=== PATIENT | female | born 1935 | race Caucasian/White ===

== ENCOUNTER 2019-12-03 15:27 | Emergency (ER) | payer MEDICARE ==
[~2019-12-03] VITALS: Ht 165.1 cm; Wt 93.0 kg
[~2019-12-03 15:27] MED LIST: B COMPLEX1 EAC1 PO; CENTRUM SILVER1 EAC1 PO; DILTIAZEM HCL120 MG PO; ELIQUIS5 MG PO; LEVOTHYROXINE25 MCG PO; TRIAMTERENE-HC1 EAC3 PO; VITAMIN D-32000 UNIT PO
[2019-12-03] MEDS ORDERED: LEVOTHYROXINE125 MCG PO (15:53)
== END 2019-12-03 21:09 | disposition home or self-care (01) ==
LOC: ED 15:27
DX: S09.90XA Unspecified injury of head, initial encounter (principal); S52.125A Nondisplaced fracture of head of left radius, initial encounter for closed fracture; S83.92XA Sprain of unspecified site of left knee, initial encounter; M25.512 Pain in left shoulder; W01.198A Fall on same level from slipping, tripping and stumbling with subsequent striking against other object, initial encounter; I10 Essential (primary) hypertension; E03.9 Hypothyroidism, unspecified; Z88.0 Allergy status to penicillin; Z88.1 Allergy status to other antibiotic agents; Z88.8 Allergy status to other drugs, medicaments and biological substances; Z88.2 Allergy status to sulfonamides; Z79.899 Other long term (current) drug therapy
CPT/HCPCS: 29125; 70450; 71046; 73030; 73080; 73110; 73140; 73502; 73560; 99284-25

== ENCOUNTER 2020-06-23 13:04 | Emergency (ER) | payer MEDICARE ==
[~2020-06-23] VITALS: Ht 165.1 cm; Wt 93.0 kg
--- OUTSIDE RECORDS SUMMARY | ~2020-06-23 | XMS | Encounter Summary ---
Demographics + + + | Address | [address] [facility] | | | [place] [address] | + + + | Home Phone | | + + + | Preferred Language | Unknown | + + + | Marital Status | | + + + | Yazidi Affiliation | 1077 | + + + | Race | White | + + + | Ethnic Group | Not or | + + + Author + + + | Author | [facility] | | | and [place] | + + + | Organization | [facility] | | | and [place] | + + + | Address | Unknown | + + + | Phone | Unavailable | + + + Support + + +---------+ + | Name | Relationship | Address | Phone | + + +---------+ + | Jovanni H Calle | ECON | Unknown | | + + +---------+ + Care Team Providers + +------+ + | Care Machine Oiler Name | Role | Phone | + +------+ + PCP | Unavailable | + +------+ + Encounter Details +--------+ + + + + | Date | Type | Department | Care Team | Description | +--------+ + + + + | 01/07/ | Hospital | [facility] | | | | 1991 - | Encounter | MED CTR GENERIC OP | | | | | | CONV DEPT [address] | | | | 10/12/ | | [place], | | | | 1991 | | [place] [address] | | | | | | [phone] | | | +--------+ + + + + Social History + +-------+ +--------+------+ | Tobacco Use | Types | Packs/Day | Years | Date | | | | | Used | | + +-------+ +--------+------+ | Never Assessed | | | | | + +-------+ +--------+------+ + + + | Sex Assigned at | Date Recorded | | | | + + + | Not on file | | + + + documented as of this encounter Plan of Treatment Not on filedocumented as of this encounter Visit Diagnoses Not on filedocumented in this encounter"
--- OUTSIDE RECORDS SUMMARY | ~2020-06-23 | XMS | Encounter Summary ---
Demographics + + + | Address | [address] [facility] | | | [place] [address] | + + + | Home Phone | | + + + | Preferred Language | Unknown | + + + | Marital Status | | + + + | Worship Affiliation | 1077 | + + + | Race | White | + + + | Ethnic Group | Not or | + + + Author + + + | Author | [facility] | | | and [place] | + + + | Organization | [facility] | | | and [place] | + + + | Address | Unknown | + + + | Phone | Unavailable | + + + Support + + +---------+ + | Name | Relationship | Address | Phone | + + +---------+ + | Jovanni Calle | ECON | Unknown | | + + +---------+ + Care Team Providers + +------+ + | Care Mailhouse Operator Name | Role | Phone | + +------+ + | Kenroy Bess DO | PCP | | + +------+ + Encounter Details +--------+ + + + + | Date | Type | Department | Care Team | Description | +--------+ + + + + | 05/08/ | Orders Only | [facility] | [place], | | | 2014 | | [facility] | [address] | | | | | [address] | [address], | | | | | [address] [place], [place] | [place] [address] | | | | | [address] | [phone] | | | | | [phone] | | | +--------+ + + + [...] Not on filedocumented as of this encounter Procedures + +--------+ + + + | Procedure Name | Priori | Date/Time | Associated Diagnosis | Comments | | | ty | | | | + +--------+ + + + | EXTERNAL LAB: CBC | Routin | 05/08/2015 | | Results for this | | | e | 12:00 AM | | procedure are in the | | | | PDT | | results section. | + +--------+ + + + | URINALYSIS WITH | Routin | 05/08/2015 | | Results for this | | MICROSCOPIC WITH | e | 12:00 AM | | procedure are in the | | CULTURE IF INDICATED | | PDT | | results section. | + +--------+ + + + | MAGNESIUM | Routin | 05/08/2015 | | Results for this | | | e | 12:00 AM | | procedure are in the | | | | PDT | | results section. | + +--------+ + + + | RENAL FUNCTION PANEL | Routin | 05/08/2015 | | Results for this | | | e | 12:00 AM | | procedure are in the | | | | PDT | | results section. | + +--------+ + + + documented in this encounter Results Urinalysis with Microscopic with Culture if Indicated (05/08/2015 12:00 AM PDT) + + + + + + | Component | Value | Ref Range | Performed | Pathologist | | | | | At | Signature | + + + + + + | Color | Yellow | | EXTERNAL | | | | | | LAB | | + + + + + + | Clarity, | Clear | | EXTERNAL | | | Urine | | | LAB | | + + + + + + | Spec Grav, | 1.016 | 1.005 - 1.030 | EXTERNAL | | | Fluid | | | LAB | | + + + + + + | Leukocyte | Negative | | EXTERNAL | | | Esterase, | | | LAB | | | Urine | | | | | + + + + + + | Nitrite, | Negative | | EXTERNAL | | | Urine | | | LAB | | + + + + + + | Urobilinoge | Normal | | EXTERNAL | | | n, Urine | | | LAB | | + + + + + + | Total | Negative | | EXTERNAL | | | Protein | | | LAB | | + + + + + + | pH, Urine | 5 | 5 - 9 | EXTERNAL | | | | | | LAB | | + + + + + + | Blood, | Negative | | EXTERNAL | | | Urine | | | LAB | | + + + + + + | Ketones | Negative | | EXTERNAL | | | | | | LAB | | + + + + + + | Bilirubin, | Negative | | EXTERNAL | | | Urine | | | LAB | | + + + + + + | Glucose, | Negative | | EXTERNAL | | | Urine | | | LAB | | + + + + + + | WBC, UA | | | EXTERNAL | | | | | | LAB | | + + + + + + | RBC, UA | | | EXTERNAL | | | | | | LAB | | + + + + + + | Epithelial | | | EXTERNAL | | | Cells | | | LAB | | + + + + + + | Bacteria, | | | EXTERNAL | | | UA | | | LAB | | + + + + + + | HYALINE | | | EXTERNAL | | | CASTS UA | | | LAB | | + + + + + + + + | Specimen | + + | | + + + +---------+ + + | Performing | Address | City/State/Zipcode | Phone Number | | Organization | | | | + +---------+ + + | EXTERNAL LAB | | | | + +---------+ + + External Lab: CBC (05/08/2015 12:00 AM PDT) + + + + + + | Component | Value | Ref Range | Performed | Pathologist | | | | | At | Signature | + + + + + + | WBC | 6.8 | 4.5 - 11.0 10 | EXTERNAL | | | | | | LAB | | + + + + + + | Non- | 5.42 (A) | 3.8 - 5.1 10 | EXTERNAL | | | Red Blood | | | LAB | | | Cells | | | | | | Counted | | | | | + + + + + + | Hemoglobin | 16.5 (A) | 12.0 - 16.0 | EXTERNAL | | | | | g/dL | LAB | | + + + + + + | Hematocrit, | 49.9 (A) | 35 - 45 % | EXTERNAL | | | POC | | | LAB | | + + + + + + | MCV | 92.1 | 81 - 99 fL | EXTERNAL | | | | | | LAB | | + + + + + + | MCH | 30 | 27 - 33 pg | EXTERNAL | | | | | | LAB | | + + + + + + | MCHC | 33 | 30 - 36 g/dL | EXTERNAL | | | | | | LAB | | + + + + + + | Platelet | 167 | 140 - 440 K/ L | EXTERNAL | | | Count | | | LAB | | | Plasma | | | | | + + + + + + | RDW-CV | 14.6 | 10.5 - 15.0 % | EXTERNAL | | | | | | LAB | | + + + + + + | MPV | | fL | EXTERNAL | | | | | | LAB | | + + + + + + | Differentia | Auto | | EXTERNAL | | | l Type | | | LAB | | + + + + + + | % Segmented | 64.4 | 39 - 80 % | EXTERNAL | | | | | | LAB | | | Neutrophils | | | | | + + + + + + | % | 21.2 (A) | 24 - 44 % | EXTERNAL | | | Lymphocytes | | | LAB | | + + + + + + | % Monocytes | 10.9 | 0 - 12 % | EXTERNAL | | | | | | LAB | | + + + + + + | % | 2.3 | 0 - 6 % | EXTERNAL | | | Eosinophils | | | LAB | | + + + + + + | % Basophils | 1.2 | 0 - 2 % | EXTERNAL | | | | | | LAB | | + + + + + + | Absolute | | / L | EXTERNAL | | | Segmented | | | LAB | | | Neutrophils | | | | | + + + + + + | Absolute | | / L | EXTERNAL | | | Lymphocytes | | | LAB | | + + + + + + | Absolute | | / L | EXTERNAL | | | Monocytes | | | LAB | | + + + + + + | Absolute | | / L | EXTERNAL | | | Eosinophils | | | LAB | | + + + + + + | Absolute | | / L | EXTERNAL | | | Basophils | | | LAB | | + + + + + + + + | Specimen | + + | Blood specimen | | (specimen) | + + + +---------+ + + | Performing | Address | City/State/Zipcode | Phone Number | | Organization | | | | + +---------+ + + | EXTERNAL LAB | | | | + +---------+ + + Magnesium (05/08/2015 12:00 AM PDT) + +-------+ + + + | Component | Value | Ref Range | Performed | Pathologist | | | | | At | Signature | + +-------+ + + + | Magnesium | 2.1 | 1.7 - 2.5 mg/dL | EXTERNAL | | | | | | LAB | | + +-------+ + + + + + | Specimen | + + | Blood specimen | | (specimen) | + + + +---------+ + + | Performing | Address | City/State/Zipcode | Phone Number | | Organization | | | | + +---------+ + + | EXTERNAL LAB | | | | + +---------+ + + Renal Function Panel (05/08/2015 12:00 AM PDT) + + + + + + | Component | Value | Ref Range | Performed | Pathologist | | | | | At | Signature | + + + + + + | Glucose, | 106 (A) | 70 - 100 mg/dL | EXTERNAL | | | Fasting | | | LAB | | + + + + + + | BUN | 30 (A) | 6 - 23 mg/dL | EXTERNAL | | | | | | LAB | | + + + + + + | Creatinine | 1.14 | 0.70 - 1.18 | EXTERNAL | | | | | mg/dL | LAB | | + + + + + + | PHOSPHORUS | | mg/dL | EXTERNAL | | | | | | LAB | | + + + + + + | Albumin | 4.2 | 3.5 - 5.0 | EXTERNAL | | | | | | LAB | | + + + + + + | Na | 139 | 132 - 143 | EXTERNAL | | | | | mmol/L | LAB | | + + + + + + | K | 4.1 | 3.6 - 5.1 | EXTERNAL | | | | | mmol/L | LAB | | + + + + + + | Cl | 100 | 95 - 112 mmol/L | EXTERNAL | | | | | | LAB | | + + + + + + | CO2 | 28 | 19 - 31 mmol/L | EXTERNAL | | | | | | LAB | | + + + + + + | Anion Gap | 15.1 | 7 - 21 mmol/L | EXTERNAL | | | | | | LAB | | + + + + + + | eGFR, | | | EXTERNAL | | | non- | | | LAB | | | [place] | | | | | + + + + + + | Phosphorus, | 3.9 | 2.5 - 5.0 | EXTERNAL | | | Inorganic | | | LAB | | + + + + + + | BUN/Creatin | 26.3 | 6.0 - 28.6 | EXTERNAL | | | ine Ratio | | | LAB | | + + + + + + | Calcium | 10.3 (A) | 8.4 - 10.2 | EXTERNAL | | | | | mg/dL | LAB | | + + + + + + | Estimated | 46 | mg/dL | EXTERNAL | | | GFR | | | LAB | | + + + + + + + + | Specimen | + + | Blood specimen | | (specimen) | + + + +---------+ + + | Performing | Address | City/State/Zipcode | Phone Number | | Organization | | | | + +---------+ + + | EXTERNAL LAB | | | | + +---------+ + + documented in this encounter Visit Diagnoses Not on filedocumented in this encounter"
--- OUTSIDE RECORDS SUMMARY | ~2020-06-23 | XMS | Encounter Summary ---
Demographics + + + | Address | [address] [facility] | | | [place] [address] | + + + | Home Phone | | + + + | Preferred Language | Unknown | + + + | Marital Status | | + + + | Confucianist Affiliation | 1077 | + + + | Race | White | + + + | Ethnic Group | Not or | + + + Author + + + | Author | [facility] | | | and [place] | + + + | Organization | [facility] | | | [...] Team Providers + +------+ + | Care Rare/Endangered Species Specialist Name | Role | Phone | + +------+ + PCP | Unavailable | + +------+ + Encounter Details +--------+ + + + + | Date | Type | Department | Care Team | Description | +--------+ + + + + | 12/29/ | Hospital | [facility] | Mehul Panda, | Sprain rotator cuff | | 2004 | Encounter | CONVERSION [address] | MD [address] | | | | | [address] | [place] | | | | | [place], [place] | [address] | | | | | [address] | [phone] | | | | | [phone] | | | +--------+ + + + [...] filedocumented as of this encounter Visit Diagnoses + + | Diagnosis | + + | Sprain rotator cuff Rotator cuff (capsule) sprain | + + documented in this encounter"
--- OUTSIDE RECORDS SUMMARY | ~2020-06-23 | XMS | Encounter Summary ---
Demographics + + + | Address | [address] [facility] | | | [place] [address] | + + + | Home Phone | | + + + | Preferred Language | Unknown | + + + | Marital Status | | + + + | Denominational Affiliation | 1077 | + + + | Race | White | + + + | Ethnic Group | Not or | + + + Author + + + | Author | [facility] | | | and [place] | + + + | Organization | [facility] | | | [...] Team Providers + +------+ + | Care Sr Risk Management Consultant Name | Role | Phone | + +------+ + | Kenroy Bess DO | PCP | | + +------+ + Encounter Details +--------+ + + + + | Date | Type | Department | Care Team | Description | +--------+ + + + + | 12/01/ | Orders Only | [facility] | Conversion | | | 2014 | | [facility] | Transaction, | | | | | [address] | Provider Unknown | | | | | [address] [place], [place] | [phone] | | | | | [address] | | | | | | [phone] | | | +--------+ + + + [...] | EXTERNAL LAB: CBC | Routin | 12/01/2014 | | Results for this | | | e | 12:00 AM | | procedure are in the | | | | PST | | results section. | + +--------+ + + + | URINALYSIS WITH | Routin | 12/01/2014 | | Results for this | | MICROSCOPIC WITH | e | 12:00 AM | | procedure are in the | | CULTURE IF INDICATED | | PST | | results section. | + +--------+ + + + | PROTEIN/CREATININE | Routin | 12/01/2014 | | Results for this | | RATIO, URINE | e | 12:00 AM | | procedure are in the | | | | PST | | results section. | + +--------+ + + + | PROTEIN, URINE, | Routin | 12/01/2014 | | Results for this | | RANDOM | e | 12:00 AM | | procedure are in the | | | | PST | | results section. | + +--------+ + + + | CREATININE, URINE, | Routin | 12/01/2014 | | Results for this | | RANDOM | e | 12:00 AM | | procedure are in the | | | | PST | | results section. | + +--------+ + + + | URIC ACID | Routin | 12/01/2014 | | Results for this | | | e | 12:00 AM | | procedure are in the | | | | PST | | results section. | + +--------+ + + + | MAGNESIUM | Routin | 12/01/2014 | | Results for this | | | e | 12:00 AM | | procedure are in the | | | | PST | | results section. | + +--------+ + + + | RENAL FUNCTION PANEL | Routin | 12/01/2014 | | Results for this | | | e | 12:00 AM | | procedure are in the | | | | PST | | results section. | + +--------+ + + + documented in this encounter Results Urinalysis with Microscopic with Culture if Indicated (12/01/2014 12:00 AM PST) + + + + + + | [...] + + + | Spec Grav, | 1.021 | | EXTERNAL | | | Fluid | [...] + | pH, Urine | 5 | | EXTERNAL | | | | [...] + + + | WBC, UA | 0 | | EXTERNAL | | | | | | LAB | | + + + + + + | RBC, UA | 0 | | EXTERNAL | | | | | | LAB | | + + + + + + | Epithelial | Negative | | EXTERNAL | | | Cells | | | LAB | | + + + + + + | Bacteria, | None Seen | | EXTERNAL | | | UA | | | LAB | | + + + + + + | HYALINE | None Seen | | EXTERNAL | | | CASTS [...] | | | + +---------+ + + Protein/Creatinine Ratio, Urine (12/01/2014 12:00 AM PST) + +-------+ + + + | Component | Value | Ref Range | Performed | Pathologist | | | | | At | Signature | + +-------+ + + + | Protein/Cre | 105.8 | 0 - 150 | EXTERNAL | | | at Ratio | | | LAB | | + +-------+ + + + + + | Specimen | + + | Urine specimen | | (specimen) | + + + +---------+ + + | Performing | Address | City/State/Zipcode | Phone Number | | Organization | | | | + +---------+ + + | EXTERNAL LAB | | | | + +---------+ + + Protein, Urine, Random (12/01/2014 12:00 AM PST) + +-------+ + + + | Component | Value | Ref Range | Performed | Pathologist | | | | | At | Signature | + +-------+ + + + | Protein, | 11 | 0.0 - 50.0 | EXTERNAL | | | Urine | | | LAB | | + +-------+ + + + + + | Specimen | + + | Urine specimen | | (specimen) | + + + +---------+ + + | Performing | Address | City/State/Zipcode | Phone Number | | Organization | | | | + +---------+ + + | EXTERNAL LAB | | | | + +---------+ + + Creatinine, Urine, Random (12/01/2014 12:00 AM PST) + +-------+ + + + | Component | Value | Ref Range | Performed | Pathologist | | | | | At | Signature | + +-------+ + + + | Creatinine, | 104 | | EXTERNAL | | | 24H Ur | | | LAB | | + +-------+ + + + + + | Specimen | + + | Urine specimen | | (specimen) | + + + +---------+ + + | Performing | Address | City/State/Zipcode | Phone Number | | Organization | | | | + +---------+ + + | EXTERNAL LAB | | | | + +---------+ + + External Lab: CBC (12/01/2014 12:00 AM PST) + + + + + + | Component | Value | Ref Range | Performed | Pathologist | | | | | At | Signature | + + + + + + | WBC | 5.9 | 4.5 - 11.0 10 | EXTERNAL | | | | | | LAB | | + + + + + + | Non- | 5.07 | 3.8 - 5.1 10 | EXTERNAL | | | Red Blood | | | LAB | | | Cells | | | | | | Counted | | | | | + + + + + + | Hemoglobin | 15.4 | 12.0 - 16.0 | EXTERNAL | | | | | g/dL | LAB | | + + + + + + | Hematocrit, | 47.6 (A) | 35 - 45 % | EXTERNAL | | | POC | | | LAB | | + + + + + + | MCV | 96.9 | 81 - 99 fL | EXTERNAL | | | | | | LAB | | + + + + + + | MCH | 30 | 27 - 33 pg | EXTERNAL | | | | | | LAB | | + + + + + + | MCHC | 32 | 30 - 36 g/dL | EXTERNAL | | | | | | LAB | | + + + + + + | Platelet | 170 | 140 - 440 K/ L | EXTERNAL | | | Count | | | LAB | | | Plasma | | | | | + + + + + + | RDW-CV | | % | EXTERNAL | | | | | | LAB | | + + + + + + | MPV | | fL | EXTERNAL | | | | | | LAB | | + + + + + + | Differentia | | | EXTERNAL | | | l Type | | | LAB | | + + + + + + | % Segmented | | % | EXTERNAL | | | | | | LAB | | | Neutrophils | | | | | + + + + + + | % | | % | EXTERNAL | | | Lymphocytes | | | LAB | | + + + + + + | % Monocytes | | % | EXTERNAL | | | | | | LAB | | + + + + + + | % | | % | EXTERNAL | | | Eosinophils | | | LAB | | + + + + + + | % Basophils | | % | EXTERNAL | | | | [...] | | | + +---------+ + + Uric Acid (12/01/2014 12:00 AM PST) + +-------+ + + + | Component | Value | Ref Range | Performed | Pathologist | | | | | At | Signature | + +-------+ + + + | Uric Acid | 5.1 | 2.3 - 6.6 | EXTERNAL | | | | | [...] | | + +---------+ + + Magnesium (12/01/2014 12:00 AM PST) + +-------+ + + + | Component | Value | Ref Range | Performed | Pathologist | | | | | At | Signature | + +-------+ + + + | Magnesium | 2.3 | 1.7 - 2.5 mg/dL | EXTERNAL [...] + +---------+ + + Renal Function Panel (12/01/2014 12:00 AM PST) + +-------+ + + + | Component | Value | Ref Range | Performed | Pathologist | | | | | At | Signature | + +-------+ + + + | Glucose, | 89 | 70 - 100 mg/dL | EXTERNAL | | | Fasting | | | LAB | | + +-------+ + + + | BUN | 20 | 6 - 23 mg/dL | EXTERNAL | | | | | | LAB | | + +-------+ + + + | Creatinine | 0.92 | 0.70 - 1.18 | EXTERNAL | | | | | mg/dL | LAB | | + +-------+ + + + | PHOSPHORUS | 3.2 | 2.5 - 5.0 mg/dL | EXTERNAL | | | | | | LAB | | + +-------+ + + + | Albumin | 4.1 | 3.5 - 5.0 | EXTERNAL | | | | | | LAB | | + +-------+ + + + | Na | 139 | 132 - 143 | EXTERNAL | | | | | mmol/L | LAB | | + +-------+ + + + | K | 4.3 | 3.6 - 5.1 | EXTERNAL | | | | | mmol/L | LAB | | + +-------+ + + + | Cl | 103 | 95 - 112 mmol/L | EXTERNAL | | | | | | LAB | | + +-------+ + + + | CO2 | 29 | 19 - 31 mmol/L | EXTERNAL | | | | | | LAB | | + +-------+ + + + | Anion Gap | 11.3 | 7 - 21 mmol/L | EXTERNAL | | | | | | LAB | | + +-------+ + + + | eGFR, | 59 | | EXTERNAL | | | non- | | | LAB | | | [place] | | | | | + +-------+ + + + | Phosphorus, | 3.2 | 2.5 - 5.0 | EXTERNAL | | | Inorganic | | | LAB | | + +-------+ + + + | BUN/Creatin | 21.7 | 6.0 - 28.6 | EXTERNAL | | | ine Ratio | | | LAB | | + +-------+ + + + | Calcium | 9.6 | 8.4 - 10.2 | EXTERNAL | | | | | mg/dL | LAB | | + +-------+ + + + | Estimated | 59 | mg/dL | EXTERNAL | | | [...]
--- OUTSIDE RECORDS SUMMARY | ~2020-06-23 | XMS | Encounter Summary ---
Demographics + + + | Address | [address] [facility] | | | [place] [address] | + + + | Home Phone | | + + + | Preferred Language | Unknown | + + + | Marital Status | | + + + | Quaker Affiliation | 1077 | + + + | Race | White | + + + | Ethnic Group | Not or | + + + Author + + + | Author | [facility] | | | and [place] | + + + | Organization | [facility] | | | and [place] | + + + | Address | Unknown | + + + | Phone | Unavailable | + + + Support + + +---------+ + | Name | Relationship | Address | Phone | + + +---------+ + | Jovanni Valdivia | ECON | Unknown | | + + +---------+ + Care Team Providers + +------+ + | Care Collection Officer Name | Role | Phone | + +------+ + | Kenroy Bess DO | PCP | | + +------+ + Encounter Details +--------+ + + + + | Date | Type | Department | Care Team | Description | +--------+ + + + + | 07/06/ | Orders Only | [facility] | Naeem Giron | | | 2014 | | CARDIOLOGY MARV | MD [address] | | | | | ECHO [address] | [address] | | | | | [address], [place] | [place] [address] | | | | | [address] | [phone] | | | | | [phone] | | | +--------+ + + + [...] | + +--------+ + + + | ECHO COMPLETE | Routin | 07/06/2015 | | Results for this | | | e | 3:16 PM | | procedure are in the | | | | PDT | | results section. | + +--------+ + + + documented in this encounter Results ECHO Complete (07/06/2015 3:16 PM PDT) + + | Specimen | + + | | + + + + + | Impressions | Performed At | + + + | 1. Overall left ventricular systolic function is normal with, an EF | | | between 65 - 70 %. 2. There is mild pulmonary hypertension. | | + + + + + + | Narrative | Performed At | + + + | Patient Name: TJ VALDIVIA Date of : 1935 | | | Performing Physician: NAEEM GIRON MD | | | | | | INDICATIONS A-fib, HTN CONCLUSIONS 1. | | | Overall left ventricular systolic function is normal with, an EF | | | between 65 - 70 %. 2. There is mild pulmonary hypertension. | | | FINDINGS -------- ECG rhythm: Atrial fibrillation. Study: A | | | 2-dimensional transthoracic echocardiogram with m-mode, spectral and | | | color flow Doppler was perfomed. Study: This was a technically | | | adequate study. Left Ventricle: Overall left ventricular systolic | | | function is normal with, an EF between 65 - 70 %. Left Ventricle: The | | | left ventricle cavity size is normal. Left Ventricle: Left | | | ventricular wall thickness is normal. Left Ventricle: No regional | | | wall motion abnormalities. Right Ventricle: The right ventricle is | | | normal in size. Left Atrium: The left atrium is markedly enlarged. | | | Right Atrium: The right atrium is markedly enlarged as compared with | | | LA volume. Aortic Valve: Aortic valve is trileaflet and is mildly | | | thickened. Aortic Valve: There is no evidence of aortic | | | regurgitation. Aortic Valve: There is no evidence of aortic stenosis. | | | Mitral Valve: The mitral valve is normal. Mitral Valve: Mild mitral | | | regurgitation is present. Tricuspid Valve: The tricuspid valve | | | appears structurally normal. Tricuspid Valve: Trace tricuspid | | | regurgitation present. Tricuspid Valve: There is mild pulmonary | | | hypertension. Tricuspid Valve: The right ventricular systolic | | | pressure (pulmonary artery systolic pressure), as measured by Doppler, | | | is 43.28mmHg. Pulmonic Valve: The pulmonic valve is normal. | | | Pulmonic Valve: Trace pulmonic regurgitation. Pericardium: There is | | | no pericardial effusion. IVC/Hepatic Veins: The IVC is normal size | | | (1.5-2.5cm) and collapses >50% with sniff, consistent with central | | | venous pressures of 5-10mmHg. Aorta: The ascending aorta is dilated | | | measuring up to 4.1cm. Mass: No mass visualized Thrombus: No clot | | | visualized Thrombus: No vegetation visualized. Septum: No ASD | | | observed. Septum: No VSD observed. MEASUREMENTS | | | Ao asc: 4.07 cm IVC: 1.99 cm LA Major: 6.78 cm EDV(Teich): | | | 119.26 ml IVSd: 0.98 cm LVIDd: 5.01 cm LVPWd: 0.99 cm | | | LVOT Area: 4.07 cm2 LVOT Diam: 2.27 cm %FS: 39.15 % | | | EF(Teich): 69.35 % ESV(Teich): 36.54 ml LVIDs: 3.05 cm | | | SV(Teich): 82.71 ml RA Major: 6.13 cm RVIDd: 2.81 cm LVEF | | | MOD A2C: 64.25 % SV MOD A2C: 52.46 ml LVEF MOD A4C: 64.54 % | | | SV MOD A4C: 35.56 ml EF Biplane: 65.75 % LVEDV MOD BP: | | | 69.46 ml LVESV MOD BP: 23.78 ml LVEDV MOD A2C: 81.64 ml LVLd | | | A2C: 7.20 cm LVEDV MOD A4C: 55.09 ml LVLd A4C: 7.07 cm | | | LVESV MOD A2C: 29.18 ml LVLs A2C: 6.16 cm LVESV MOD A4C: | | | 19.53 ml LVLs A4C: 6.05 cm LAESV(A-L): 96.31 ml LAESV Index | | | (A-L): 42.99 ml/m2 LAAs A2C: 26.64 cm2 LAESV A-L A2C: 89.88 | | | ml LALs A2C: 6.70 cm LAAs A4C: 28.54 cm2 LAESV A-L A4C: | | | 99.16 ml LALs A4C: 6.97 cm RAAs: 26.57 cm2 RAESV A-L: | | | 98.40 ml RAESV MOD: 93.36 ml RALs: 6.09 cm Ao Diam: 2.95 | | | cm LA Diam: 4.86 cm LA/Ao: 1.65 AV maxP.49 mmHg AV | | | meanP.11 mmHg AV Vmax: 1.45 m/s AV Vmean: 0.95 m/s AV | | | VTI: 26.35 cm ORLANDO Vmax: 2.57 cm2 ORLANDO (VTI): 3.10 cm2 LVOT | | | maxP.37 mmHg LVOT meanP.77 mmHg LVSI Dopp: 36.51 | | | ml/m2 LVSV Dopp: 81.78 ml LVOT Vmax: 0.91 m/s LVOT Vmean: | | | 0.62 m/s LVOT VTI: 20.04 cm IVRT: 103.80 ms MV A Bryce: 0.02 | | | m/s MV Dec Greer: 7.34 m/s2 MV DecT: 158.70 ms MV E Bryce: | | | 1.16 m/s MV E/A Ratio: 53.04 MV PHT: 46.02 ms MVA By PHT: | | | 4.78 cm2 RAP: 5 mmHg RVSP: 43.27 mmHg TR maxP.27 mmHg | | | TR Vmax: 3.09 m/s Adult Education Manager: VICKIE Authenticated by: | | | NAEEM GIRON MD Report Date/Time: 07-07-2015 11:22:52 | | + + + + + | Procedure Note | + + | Nam Martinez Conversion - 06/07/2019 12:19 PM PDT Patient Name: Carlitos VALDIVIA of | | : 1935 Performing Physician: NAEEM GIRON | | MD INDICATIONS A | | -fib, HTN CONCLUSIONS 1. Overall left ventricular systolic function is normal | | with, an EF between 65 - 70 %.2. There is mild pulmonary hypertension. | | FINDINGS--------ECG rhythm: Atrial fibrillation.Study: A 2-dimensional transthoracic | | echocardiogram with m-mode, spectral and color flow Doppler was perfomed.Study: This was | | a technically adequate study.Left Ventricle: Overall left ventricular systolic function | | is normal with, an EF between 65 - 70 %.Left Ventricle: The left ventricle cavity size | | is normal.Left Ventricle: Left ventricular wall thickness is normal.Left Ventricle: No | | regional wall motion abnormalities.Right Ventricle: The right ventricle is normal in | | size.Left Atrium: The left atrium is markedly enlarged.Right Atrium: The right atrium is | | markedly enlarged as compared with LA volume.Aortic Valve: Aortic valve is trileaflet | | and is mildly thickened.Aortic Valve: There is no evidence of aortic | | regurgitation.Aortic Valve: There is no evidence of aortic stenosis.Mitral Valve: The | | mitral valve is normal.Mitral Valve: Mild mitral regurgitation is present.Tricuspid | | Valve: The tricuspid valve appears structurally normal.Tricuspid Valve: Trace tricuspid | | regurgitation present.Tricuspid Valve: There is mild pulmonary hypertension.Tricuspid | | Valve: The right ventricular systolic pressure (pulmonary artery systolic pressure), as | | measured by Doppler, is 43.28mmHg.Pulmonic Valve: The pulmonic valve is normal.Pulmonic | | Valve: Trace pulmonic regurgitation.Pericardium: There is no pericardial | | effusion.IVC/Hepatic Veins: The IVC is normal size (1.5-2.5cm) and collapses >50% with | | sniff, consistent with central venous pressures of 5-10mmHg.Aorta: The ascending aorta | | is dilated measuring up to 4.1cm.Mass: No mass visualizedThrombus: No clot | | visualizedThrombus: No vegetation visualized.Septum: No ASD observed.Septum: No VSD | | observed. MEASUREMENTS Ao asc: 4.07 cmIVC: 1.99 cmLA Major: 6.78 | | cmEDV(Teich): 119.26 mlIVSd: 0.98 cmLVIDd: 5.01 cmLVPWd: 0.99 cmLVOT Area: | | 4.07 [id number] Diam: 2.27 cm%FS: 39.15 %EF(Teich): 69.35 %ESV(Teich): 36.54 | | mlLVIDs: 3.05 cmSV(Teich): 82.71 mlRA Major: 6.13 cmRVIDd: 2.81 cmLVEF MOD A2C: | | 64.25 %SV MOD A2C: 52.46 mlLVEF MOD A4C: 64.54 %SV MOD A4C: 35.56 mlEF Biplane: | | 65.75 %LVEDV MOD BP: 69.46 mlLVESV MOD BP: 23.78 mlLVEDV MOD A2C: 81.64 mlLVLd | | A2C: 7.20 cmLVEDV MOD A4C: 55.09 mlLVLd A4C: 7.07 cmLVESV MOD A2C: 29.18 mlLVLs | | A2C: 6.16 cmLVESV MOD A4C: 19.53 mlLVLs A4C: 6.05 cmLAESV(A-L): 96.31 mlLAESV | | Index (A-L): 42.99 ml/m2LAAs A2C: 26.64 [id number] A-L A2C: 89.88 mlLALs A2C: 6.70 | | cmLAAs A4C: 28.54 [id number] A-L A4C: 99.16 mlLALs A4C: 6.97 cmRAAs: 26.57 | | [id number] A-L: 98.40 mlRAESV MOD: 93.36 mlRALs: 6.09 cmAo Diam: 2.95 cmLA Diam: | | 4.86 cmLA/Ao: 1.65AV maxP.49 mmHgAV meanP.11 mmHgAV Vmax: 1.45 m/Huang | | Vmean: 0.95 m/Huang VTI: 26.35 cmAVA Vmax: 2.57 cm2AVA (VTI): 3.10 [id number] maxPG: | | 3.37 mmHgLVOT meanP.77 mmHgLVSI Dopp: 36.51 ml/m2LVSV Dopp: 81.78 mlLVOT | | Vmax: 0.91 m/sLVOT Vmean: 0.62 m/sLVOT VTI: 20.04 cmIVRT: 103.80 msMV A Bryce: | | 0.02 m/sMV Dec Greer: 7.34 m/s2MV DecT: 158.70 msMV E Bryce: 1.16 m/sMV E/A Ratio: | | 53.04MV PHT: 46.02 msMVA By PHT: 4.78 cm2RAP: 5 mmHgRVSP: 43.27 mmHgTR maxPG: | | 38.27 mmHgTR Vmax: 3.09 m/s Adult Education Manager: DHAuthenticated by: NAEEM GIRON | | MDReport Date/Time: 07-07-2015 11:22:52 IMPRESSION: 1. Overall left ventricular systolic | | function is normal with, an EF between 65 - 70 %.2. There is mild pulmonary | | hypertension. | |Septum: No ASD observed. | |Septum: No VSD observed. | | | |MEASUREMENTS | | | |Ao asc: 4.07 cm | |IVC: 1.99 cm | |LA Major: 6.78 cm | |EDV(Teich): 119.26 ml | |IVSd: 0.98 cm | |LVIDd: 5.01 cm | |LVPWd: 0.99 cm | |LVOT Area: 4.07 cm2 | |LVOT Diam: 2.27 cm | |%FS: 39.15 % | |EF(Teich): 69.35 % | |ESV(Teich): 36.54 ml | |LVIDs: 3.05 cm | |SV(Teich): 82.71 ml | |RA Major: 6.13 cm | |RVIDd: 2.81 cm | |LVEF MOD A2C: 64.25 % | |SV MOD A2C: 52.46 ml | |LVEF MOD A4C: 64.54 % | |SV MOD A4C: 35.56 ml | |EF Biplane: 65.75 % | |LVEDV MOD BP: 69.46 ml | |LVESV MOD BP: 23.78 ml | |LVEDV MOD A2C: 81.64 ml | |LVLd A2C: 7.20 cm | |LVEDV MOD A4C: 55.09 ml | |LVLd A4C: 7.07 cm | |LVESV MOD A2C: 29.18 ml | |LVLs A2C: 6.16 cm | |LVESV MOD A4C: 19.53 ml | |LVLs A4C: 6.05 cm | |LAESV(A-L): 96.31 ml | |LAESV Index (A-L): 42.99 ml/m2 | |LAAs A2C: 26.64 cm2 | |LAESV A-L A2C: 89.88 ml | |LALs A2C: 6.70 cm | |LAAs A4C: 28.54 cm2 | |LAESV A-L A4C: 99.16 ml | |LALs A4C: 6.97 cm | |RAAs: 26.57 cm2 | |RAESV A-L: 98.40 ml | |RAESV MOD: 93.36 ml | |RALs: 6.09 cm | |Ao Diam: 2.95 cm | |LA Diam: 4.86 cm | |LA/Ao: 1.65 | |AV maxP.49 mmHg | |AV meanP.11 mmHg | |AV Vmax: 1.45 m/s | |AV Vmean: 0.95 m/s | |AV VTI: 26.35 cm | |ORLANDO Vmax: 2.57 cm2 | |ORLANDO (VTI): 3.10 cm2 | |LVOT maxP.37 mmHg | |LVOT meanP.77 mmHg | |LVSI Dopp: 36.51 ml/m2 | |LVSV Dopp: 81.78 ml | |LVOT Vmax: 0.91 m/s | |LVOT Vmean: 0.62 m/s | |LVOT VTI: 20.04 cm | |IVRT: 103.80 ms | |MV A Bryce: 0.02 m/s | |MV Dec Greer: 7.34 m/s2 | |MV DecT: 158.70 ms | |MV E Bryce: 1.16 m/s | |MV E/A Ratio: 53.04 | |MV PHT: 46.02 ms | |MVA By PHT: 4.78 cm2 | |RAP: 5 mmHg | |RVSP: 43.27 mmHg | |TR maxP.27 mmHg | |TR Vmax: 3.09 m/s | | | |Adult Education Manager: VICKIE | |Authenticated by: NAEEM GIRON MD | |Report Date/Time: 07-07-2015 11:22:52 | | | |IMPRESSION: | |1. Overall left ventricular systolic function is normal with, an EF between 65 - 70 %. | |2. There is mild pulmonary hypertension. | + + documented in this encounter Visit Diagnoses Not on filedocumented in this encounter"
--- OUTSIDE RECORDS SUMMARY | ~2020-06-23 | XMS | Clinical Summary ---
Demographics + + + | Address | [address] [facility] | | | [place] [address] | + + + | Home Phone | | + + + | Preferred Language | Unknown | + + + | Marital Status | | + + + | Latter-Day Affiliation | 1077 | + + + | Race | White | + + + | Ethnic Group | Not or | + + + Author + + + | Author | [facility] | | | and [place] | + + + | Organization | [facility] | | [...] Team Providers + +------+ + | Care Label Machine Operator Name | Role | Phone | + +------+ + | Kenroy Bess DO | PCP | | + +------+ + Allergies Not on File Medications Not on file Active Problems Not on file Family History + + +------+ + | Medical History | Relation | Name | Comments | + + +------+ + | Hypertension | Father | | | + + +------+ + | Stroke | Mother | | | + + +------+ + + +------+ + + | Relation | Name | Status | Comments | + +------+ + + | Father | | | | | | | (Age | | | | | 97) | | + +------+ + + | Father | | | | + +------+ + + | Mother | | | | + +------+ + + | Mother | | | | + +------+ + + Social History + +-------+ +--------+------+ | Tobacco Use | Types | Packs/Day | Years | Date | | | | | Used | | + +-------+ +--------+------+ | Never Smoker | | | | | + +-------+ +--------+------+ + + + | Sex Assigned at | Date Recorded | | | | + + + | Not on file | | + + + Last Filed Vital Signs Not on file Plan of Treatment + + +-------+ + | Health Maintenance | Due Date | Last | Comments | | | | Done | | + + +-------+ + | Vaccine: | | | | | Dtap/Tdap/Td (1 - | 5 | | | | Tdap) | | | | + + +-------+ + | Vaccine: Zoster (1 | | | | | of 2) | 6 | | | + + +-------+ + | Vaccine: | | | | | Pneumococcal 65+ (1 | 1 | | | | of 1 - PPSV23) | | | | + + +-------+ + | Vaccine: Influenza | | | | | (#1) | 0 | | | + + +-------+ + Results Not on filefrom Last 3 Months"
--- OUTSIDE RECORDS SUMMARY | ~2020-06-23 | XMS | Encounter Summary ---
Demographics + + + | Address | [address] [facility] | | | [place] [address] | + + + | Home Phone | | + + + | Preferred Language | Unknown | + + + | Marital Status | | + + + | Episcopalian Affiliation | 1077 | + + + | Race | White | + + + | Ethnic Group | Not or | + + + Author + + + | Author | [facility] | | | and [place] | + + + | Organization | [facility] | | | and [...] Team Providers + +------+ + | Care Denier Control Operator Name | Role | Phone | + +------+ + | Kenroy Bess DO | PCP | | + +------+ + Encounter Details +--------+ + + + + | Date | Type | Department | Care Team | Description | +--------+ + + + + | 05/08/ | Orders Only | [facility] | [place] Britt, | | | 2014 | | [place] | REHABILITATION CASEWORKER [address] | | | | | [address] [place] | [address] | | | | | [address] [place], [place] | [place] | | | | | [address] | [address] | | | | | [phone] | [phone] | | | | | | | | +--------+ + + + [...] | + +--------+ + + + | PARATHYROID HORMONE, | Routin | 05/08/2015 | | Results for this | | INTACT AND CALCIUM | e | 12:00 AM | | procedure are in the | | | | PDT | | results section. | + +--------+ + + + | PROTEIN/CREATININE | Routin | 05/08/2015 | | Results for this | | RATIO, URINE | e | 12:00 AM | | procedure are in the | | | | PDT | | results section. | + +--------+ + + + documented in this encounter Results Parathyroid Hormone, Intact and Calcium (05/08/2015 12:00 AM PDT) + + + + + + | Component | Value | Ref Range | Performed | Pathologist | | | | | At | Signature | + + + + + + | PTH Intact | 57.17 | 15 - 65 | EXTERNAL | | | | | [...] + +---------+ + + Protein/Creatinine Ratio, Urine (05/08/2015 12:00 AM PDT) + +-------+ + + + | Component | Value | Ref Range | Performed | Pathologist | | | | | At | Signature | + +-------+ + + + | Protein/Cre | 63.0 | 0 - 150 | EXTERNAL | [...]
--- OUTSIDE RECORDS SUMMARY | ~2020-06-23 | XMS | Encounter Summary ---
Demographics + + + | Address | [address] [facility] | | | [place] [address] | + + + | Home Phone | | + + + | Preferred Language | Unknown | + + + | Marital Status | | + + + | Restorationist Affiliation | 1077 | + + + | Race | White | + + + | Ethnic Group | Not or | + + + Author + + + | Author | [facility] | | | and [place] | + + + | Organization | [facility] | | | [...] Team Providers + +------+ + | Care Remote Sensing Technician Name | Role | Phone | + +------+ + PCP | Unavailable | + +------+ + Encounter Details +--------+ + + + + | Date | Type | Department | Care Team | Description | +--------+ + + + + | 02/24/ | Hospital | [facility] | | | | 1994 | Encounter | MED CTR XRAY [address] | | | | | | [place] | | | | | | [place] [address] | | | | | | [phone] | | | +--------+ + + + [...]
--- OUTSIDE RECORDS SUMMARY | ~2020-06-23 | XMS | Encounter Summary ---
Demographics + + + | Address | [address] [facility] | | | [place] [address] | + + + | Home Phone | | + + + | Preferred Language | Unknown | + + + | Marital Status | | + + + | Mandaen Affiliation | 1077 | + + + | Race | White | + + + | Ethnic Group | Not or | + + + Author + + + | Author | [facility] | | | and [place] | + + + | Organization | [facility] | | | and [...] Team Providers + +------+ + | Care Fender Repairer Name | Role | Phone | + +------+ + | Kenroy Bess DO | PCP | | + +------+ + Encounter Details +--------+ + + + + | Date | Type | Department | Care Team | Description | +--------+ + + + + | 02/05/ | Orders Only | [facility] | [place], | | | 2013 | | NEPHROLOGY [place] | [address] | | | | | [address] [place] | [place] [address] [place], | | | | | [address] [place] | [place] [address] | | | | | [address] | [phone] | | | | | [phone] | | | +--------+ + + + [...] | EXTERNAL LAB: CBC | Routin | 02/05/2014 | | Results for this | | | e | 12:00 AM | | procedure are in the | | | | PDT | | results section. | + +--------+ + + + | URINALYSIS WITH | Routin | 02/05/2014 | | Results for this | | MICROSCOPIC WITH | e | 12:00 AM | | procedure are in the | | CULTURE IF INDICATED | | PDT | | results section. | + +--------+ + + + | PARATHYROID HORMONE, | Routin | 02/05/2014 | | Results for this | | INTACT AND CALCIUM | e | 12:00 AM | | procedure are in the | | | | PDT | | results section. | + +--------+ + + + | PROTEIN/CREATININE | Routin | 02/05/2014 | | Results for this | | RATIO, URINE | e | 12:00 AM | | procedure are in the | | | | PDT | | results section. | + +--------+ + + + | PROTEIN, URINE, | Routin | 02/05/2014 | | Results for this | | RANDOM | e | 12:00 AM | | procedure are in the | | | | PDT | | results section. | + +--------+ + + + | CREATININE, URINE, | Routin | 02/05/2014 | | Results for this | | RANDOM | e | 12:00 AM | | procedure are in the | | | | PDT | | results section. | + +--------+ + + + | MAGNESIUM | Routin | 02/05/2014 | | Results for this | | | e | 12:00 AM | | procedure are in the | | | | PDT | | results section. | + +--------+ + + + | RENAL FUNCTION PANEL | Routin | 02/05/2014 | | Results for this | | | e | 12:00 AM | | procedure are in the | | | | PDT | | results section. | + +--------+ + + + documented in this encounter Results Urinalysis with Microscopic with Culture if Indicated (02/05/2014 12:00 AM PDT) + + + + [...] + + + | Spec Grav, | 1.007 | | EXTERNAL | | | Fluid [...] + + + | pH, Urine | 7 | | EXTERNAL | | | | [...] | | | + +---------+ + + Parathyroid Hormone, Intact and Calcium (02/05/2014 12:00 AM PDT) + +-------+ + + + | Component | Value | Ref Range | Performed | Pathologist | | | | | At | Signature | + +-------+ + + + | PTH Intact | 48.40 | | EXTERNAL | | | | | | LAB | | + +-------+ + + + | Calcium | 9.8 | | EXTERNAL | | | | [...] + +---------+ + + Protein/Creatinine Ratio, Urine (02/05/2014 12:00 AM PDT) + +-------+ + + + | Component | Value | Ref Range | Performed | Pathologist | | | | | At | Signature | + +-------+ + + + | Protein/Cre | 146.3 | | EXTERNAL | | | at Ratio [...] + +---------+ + + Protein, Urine, Random (02/05/2014 12:00 AM PDT) + +-------+ + + + | Component | Value | Ref Range | Performed | Pathologist | | | | | At | Signature | + +-------+ + + + | Protein, | 6 | | EXTERNAL | | | Urine [...] + +---------+ + + Creatinine, Urine, Random (02/05/2014 12:00 AM PDT) + +-------+ + + + | Component | Value | Ref Range | Performed | Pathologist | | | | | At | Signature | + +-------+ + + + | Creatinine, | 41 | | EXTERNAL | | | 24H [...] + +---------+ + + External Lab: CBC (02/05/2014 12:00 AM PDT) + +-------+ + + + | Component | Value | Ref Range | Performed | Pathologist | | | | | At | Signature | + +-------+ + + + | WBC | 7.2 | 10 | EXTERNAL | | | | | | LAB | | + +-------+ + + + | Non- | 5.17 | 10 | EXTERNAL | | | Red Blood | | | LAB | | | Cells | | | | | | Counted | | | | | + +-------+ + + + | Hemoglobin | 15.3 | g/dL | EXTERNAL | | | | | | LAB | | + +-------+ + + + | Hematocrit, | 47.3 | % | EXTERNAL | | | POC | | | LAB | | + +-------+ + + + | MCV | 91.6 | fL | EXTERNAL | | | | | | LAB | | + +-------+ + + + | MCH | 30 | pg | EXTERNAL | | | | | | LAB | | + +-------+ + + + | MCHC | 32 | g/dL | EXTERNAL | | | | | | LAB | | + +-------+ + + + | Platelet | 164 | K/ L | EXTERNAL | | | Count | | | LAB | | | Plasma | | | | | + +-------+ + + + | RDW-CV | 14.4 | % | EXTERNAL | | | | | | LAB | | + +-------+ + + + | MPV | | fL | EXTERNAL | | | | | | LAB | | + +-------+ + + + | Differentia | Auto | | EXTERNAL | | | l Type | | | LAB | | + +-------+ + + + | % Segmented | 65.8 | % | EXTERNAL | | | | | | LAB | | | Neutrophils | | | | | + +-------+ + + + | % | 21.7 | % | EXTERNAL | | | Lymphocytes | | | LAB | | + +-------+ + + + | % Monocytes | 8.6 | % | EXTERNAL | | | | | | LAB | | + +-------+ + + + | % | 3.0 | % | EXTERNAL | | | Eosinophils | | | LAB | | + +-------+ + + + | % Basophils | 0.9 | % | EXTERNAL | | | | | | LAB | | + +-------+ + + + | Absolute | | / L | EXTERNAL | | | Segmented | | | LAB | | | Neutrophils | | | | | + +-------+ + + + | Absolute | | / L | EXTERNAL | | | Lymphocytes | | | LAB | | + +-------+ + + + | Absolute | | / L | EXTERNAL | | | Monocytes | | | LAB | | + +-------+ + + + | Absolute | | / L | EXTERNAL | | | Eosinophils | | | LAB | | + +-------+ + + + | Absolute | | [...] | | + +---------+ + + Magnesium (02/05/2014 12:00 AM PDT) + +-------+ + + + | Component | Value | Ref Range | Performed | Pathologist | | | | | At | Signature | + +-------+ + + + | Magnesium | 2.4 | mg/dL | EXTERNAL | | | [...] + +---------+ + + Renal Function Panel (02/05/2014 12:00 AM PDT) + +-------+ + + + | Component | Value | Ref Range | Performed | Pathologist | | | | | At | Signature | + +-------+ + + + | Glucose, | 84 | mg/dL | EXTERNAL | | | Fasting | | | LAB | | + +-------+ + + + | BUN | 21 | mg/dL | EXTERNAL | | | | | | LAB | | + +-------+ + + + | Creatinine | 0.99 | mg/dL | EXTERNAL | | | | | | LAB | | + +-------+ + + + | PHOSPHORUS | | mg/dL | EXTERNAL | | | | | | LAB | | + +-------+ + + + | Albumin | 4.2 | | EXTERNAL | | | | | | LAB | | + +-------+ + + + | Na | 136 | mmol/L | EXTERNAL | | | | | | LAB | | + +-------+ + + + | K | 4.1 | mmol/L | EXTERNAL | | | | | | LAB | | + +-------+ + + + | Cl | 101 | mmol/L | EXTERNAL | | | | | | LAB | | + +-------+ + + + | CO2 | 25 | mmol/L | EXTERNAL | | | | | | LAB | | + +-------+ + + + | Anion Gap | 14.1 | mmol/L | EXTERNAL | | | | | | LAB | | + +-------+ + + + | eGFR, | | | EXTERNAL | | | non- | | | LAB | | | [place] | | | | | + +-------+ + + + | Phosphorus, | 3.3 | | EXTERNAL | | | Inorganic | | | LAB | | + +-------+ + + + | BUN/Creatin | 21.2 | | EXTERNAL | | | ine Ratio | | | LAB | | + +-------+ + + + | Calcium | 9.8 | mg/dL | EXTERNAL | | | | | | LAB | | + +-------+ + + + | Estimated | 54 | mg/dL | EXTERNAL | | | [...]
--- OUTSIDE RECORDS SUMMARY | ~2020-06-23 | XMS | Encounter Summary ---
Demographics + + + | Address | [address] [facility] | | | [place] [address] | + + + | Home Phone | | + + + | Preferred Language | Unknown | + + + | Marital Status | | + + + | Episcopalian Affiliation | 1077 | + + + | Race | White | + + + | Ethnic Group | Not or | + + + Author + + + | Author | [facility] | | | and [place] | + + + | Organization | [facility] | | | [...] Team Providers + +------+ + | Care User Acceptance Tester Name | Role | Phone | + +------+ + | Kenroy Bess DO | PCP | | + +------+ + Encounter Details +--------+ + + + + | Date | Type | Department | Care Team | Description | +--------+ + + + + | 07/07/ | Orders Only | [facility] | Naeem Boone | | | 2014 | | CARDIOLOGY MARV | MD [address] | | | | | NUC MED [address] | [address] | | | | | [place] | [place] [address] | | | | | [place], [place] | [phone] | | | | | [address] | | | | | | [phone] | | | +--------+ + + + [...] | + +--------+ + + + | NM NUCLEAR STRESS | Routin | 07/07/2015 | | Results for this | | TEST (PHARMACOLOGIC | e | 3:39 PM | | procedure are in the | | - VASODILATOR) | | PDT | | results section. | + +--------+ + + + documented in this encounter Results NM Nuclear Stress Test (Vasodilator) (07/07/2015 3:39 PM PDT) + + | Specimen | + + | | + + + + + | Impressions | Performed At | + + + | Normal myocardial perfusion study. Stress EKG is non diagnostic for | | | ischemia. Normal LV systolic function with no wall motion | | | abnormalities noted. Naeem Boone MD | | | | | + + + + + + | Narrative | Performed At | + + + | [facility] CARDIOLOGY Nuclear Lexiscan Stress Test TEST | | | DATE: 07/06/2015 INDICATION FOR TEST: 79 year old female being | | | evaluated for atrial fibrillation, chest pain. RISK FACTORS: | | | hypertension, family history, post menopause, stress PROCEDURE: | | | 30.2 mCi of 99m Tc Myoview was given intravenously for rest images. | | | The patient received 0.4 mg of Lexiscan intravenously. At 35 seconds | | | 29.0 mCi of 99m Tc Myoview was given intravenously for stress images. | | | Effective Dose Equivalent: mSv. REST DATA: HR: 83 bpm BP: | | | 138 / 98. Resting EKG showed atrial fibrillation. STRESS DATA: | | | Peak heart rate 96 bpm, Peak BP: 141/101. Symptoms lightheaded Stress | | | EKG showed no significant ST T changes, PVCs noted during infusion and | | | recovery. EJECTION FRACTION: Rest EF: 73% Stress EF: 74% | | | IMAGIN. The quality of the study is good. 2. Perfusion | | | showed no perfusion defects noted. 3. LV cavity size is normal with | | | TID: 1.09). 4. Gated SPECT images showed normal LV systolic | | | function with no wall motion abnormalities. 5. There is no previous | | | test to compare with . | | + + + + + | Procedure Note | + + | Nam Martinez Conversion - 06/07/2019 12:19 PM [facility] CARDIOLOGYNuclear | | Lexiscan Stress Test TEST DATE: 07/06/2015 INDICATION FOR TEST: 79 year old female | | being evaluated for atrial fibrillation, chest pain. RISK FACTORS: hypertension, family | | history, post menopause, stress PROCEDURE: 30.2 mCi of 99m Tc Myoview was given | | intravenously for rest images. The patient received 0.4 mg of Lexiscan intravenously. At | | 35 seconds 29.0 mCi of 99m Tc Myoview was given intravenously for stress images. | | Effective Dose Equivalent: mSv. REST DATA: HR: 83 bpm BP: 138 / 98. Resting EKG | | showed atrial fibrillation. STRESS DATA: Peak heart rate 96 bpm, Peak BP: 141/101. | | Symptoms lightheaded Stress EKG showed no significant ST T changes, PVCs noted during | | infusion and recovery. EJECTION FRACTION: Rest EF: 73% Stress EF: 74% IMAGIN. The | | quality of the study is good.2. Perfusion showed no perfusion defects noted.3. LV | | cavity size is normal with TID: 1.09).4. Gated SPECT images showed normal LV systolic | | function with no wall motion abnormalities.5. There is no previous test to compare with | | . IMPRESSION: Normal myocardial perfusion study.Stress EKG is non diagnostic for | | ischemia.Normal LV systolic function with no wall motion abnormalities noted. Naeem | | MD Paolo | |STRESS DATA: Peak heart rate 96 bpm, Peak BP: 141/101. Symptoms lightheaded Stress EKG show ed no significant ST T changes, PVCs noted during infusion and recovery. | | | |EJECTION FRACTION: Rest EF: 73% Stress EF: 74% | | | |IMAGING: | |1. The quality of the study is good. | |2. Perfusion showed no perfusion defects noted. | |3. LV cavity size is normal with TID: 1.09). | |4. Gated SPECT images showed normal LV systolic function with no wall motion abnormalities . | |5. There is no previous test to compare with . | | | |IMPRESSION: | |Normal myocardial perfusion study. | |Stress EKG is non diagnostic for ischemia. | |Normal LV systolic function with no wall motion abnormalities noted. | | | | | | | |Naeem Boone MD | | | | | + + documented in this encounter Visit Diagnoses Not on filedocumented in this encounter"
[~2020-06-23 13:04] MED LIST changes: +LEVOTHYROXINE125 MCG PO
[2020-06-23] MEDS ORDERED: FUROSEMIDE20 MG PO (13:32)
== END 2020-06-23 19:23 | disposition home or self-care (01) ==
LOC: ED 13:04
DX: S16.1XXA Strain of muscle, fascia and tendon at neck level, initial encounter (principal); M62.830 Muscle spasm of back; I10 Essential (primary) hypertension; E03.9 Hypothyroidism, unspecified; Z87.891 Personal history of nicotine dependence; Z88.0 Allergy status to penicillin; Z88.1 Allergy status to other antibiotic agents; Z88.2 Allergy status to sulfonamides; Z79.899 Other long term (current) drug therapy; X50.0XXA Overexertion from strenuous movement or load, initial encounter
CPT/HCPCS: 70491; 80053; 85025; 99284-25; Q9967

== ENCOUNTER 2020-08-17 16:19 | Emergency (ER) | payer MEDICARE ==
[~2020-08-17] VITALS: Ht 165.1 cm; Wt 93.0 kg
[~2020-08-17 16:19] MED LIST changes: +FUROSEMIDE20 MG PO
== END 2020-08-17 18:57 | disposition short-term general hospital (02) ==
LOC: ED 16:19
DX: S06.5X9A Traumatic subdural hemorrhage with loss of consciousness of unspecified duration, initial encounter (principal); S02.40DA Maxillary fracture, left side, initial encounter for closed fracture; S02.40FA Zygomatic fracture, left side, initial encounter for closed fracture; S16.1XXA Strain of muscle, fascia and tendon at neck level, initial encounter; W01.198A Fall on same level from slipping, tripping and stumbling with subsequent striking against other object, initial encounter; I12.9 Hypertensive chronic kidney disease with stage 1 through stage 4 chronic kidney disease, or unspecified chronic kidney disease; N18.30 Chronic kidney disease, stage 3 unspecified; E03.9 Hypothyroidism, unspecified; I48.91 Unspecified atrial fibrillation; Z87.891 Personal history of nicotine dependence; Z88.0 Allergy status to penicillin; Z88.1 Allergy status to other antibiotic agents; Z88.2 Allergy status to sulfonamides; Z79.899 Other long term (current) drug therapy
CPT/HCPCS: 51702; 70450; 70486; 71045; 72125; 80053; 82150; 82550; 83690; 85025; 86850; 86900; 86901; 99285-25; C9132; G0480

== ENCOUNTER 2021-02-03 06:15 | Day surgery (SDC) | payer MEDICARE ==
[~2021-02-03] VITALS: Ht 165.1 cm; Wt 95.5 kg
[~2021-02-03 06:15] MED LIST changes: +K-TAB ER20 MEQ PO; +TORSEMIDE20 MG PO
--- NOTE | 2021-02-03 11:49 | OR ---
[facility] [address] [place], [place] [address] Signed DATE OF OPERATION: 02/03/2021 SURGEON: Tahmina Fox MD PREOPERATIVE DIAGNOSES: 1. Personal history of colonic polyps. 2. Diverticulosis. 3. Sister with colon polyps. 4. Recurrent rectal bleeding on Eliquis 2012. POSTOPERATIVE DIAGNOSES: 1. Moderate sigmoid diverticulosis. 2. 8 mm polyp opposite to ileocecal valve in proximal right colon. 3. 4 mm polyp at 100 cm (transverse colon). 4. Colonoscopy with snare polypectomy and hot biopsy. ESTIMATED BLOOD LOSS: None. INDICATIONS: Tomas is an 85-year-old female asked to see me for a followup colonoscopy. She has chronic atrial fibrillation requiring her Eliquis. Her left ventricular ejection fraction was 65-70% back in 2015. She actually had an excellent stress test in 2014. Unfortunately, she is a poor historian otherwise. She is quite debilitated, asked to use a cane to ambulate. She has gone through possibly [address] Aguirre. We could only find a report from 2013 at age 77. The indication was for rectal bleeding at that time. She had several tiny hyperplastic polyps in the rectum. She had extensive sigmoid diverticulosis. In addition, she is fairly certain that her sister had a couple of colonic polyps removed. She has been seeing blood in the toilet once again. In the office I met with Tomas and her granddaughter. We had reviewed the above findings. I gave them a booklet on colonoscopy. They understand the nature of the test. There is risk including, but not limited to gas bloating, crampy abdominal pain, bleeding, perforation requiring surgery, and missed diagnosis. She also understands the need for IV conscious sedation. Given her advanced age and medical issues, we asked that an anesthesia provider help us with increased monitoring and sedation with propofol. We asked that she hold the Eliquis 5 days prior to the procedure. She had expressed understanding and wished to proceed. PROCEDURE NOTE: Tomas was taken into endoscopy suite and placed in the left lateral decubitus position. Electronically Signed By: TAHMINA FOX MD 02/03/21 1149 PATIENT NAME: TOMAS VALDIVIA OPERATIVE REPORT DATE OF : 35 REPORT #: [id number] PHYSICIAN: TAHMINA FOX MD PCP: KENROY DHALIWAL DO REPORT IS CONFIDENTIAL AND NOT TO BE RELEASED WITHOUT AUTHORIZATION [facility] [address] [place], [place] [address] Signed She was given IV sedation with propofol per our nurse singe winder. A digital rectal exam was performed and this was unremarkable. The adult colonoscope was introduced and advanced carefully through her sigmoid colon. It is a bit narrow and tortuous with moderate diverticulosis then, it traveled nicely through the left colon and into the cecum itself. She needed just a little abdominal compression in order to advance the scope. We could easily see the appendiceal orifice and the ileocecal valve. Opposite to the ileocecal valve was a polyp probably 7 or 8 mm in diameter. We divided it with the snare and captured it with our basket. We brought it through our scope. We then placed a clip over that area. Hemostasis was excellent even prior to the clip. The scope was then slowly withdrawn. We did see some diverticula in the right colon as well. We saw just a very tiny polyp back at 100 cm in the transverse colon. We removed it with the help of hot biopsy forceps. The left sigmoid colon again shows the moderate diverticula. They are moderate in size, moderate in number, and scattered about. Her sigmoid colon is a bit long, narrow and redundant. In the rectum, we had retroflexed the scope and did not see any specific pathology above the anal canal. After this, the gas was suctioned out and the colonoscope removed. Tomas tolerated procedure quite well. RECOMMENDATIONS: I will see Tomas back in my office in 7 to 14 days. She can resume the Eliquis in one week. No aspirin or NSAIDs for one week. More than likely this will be her last colonoscopy. Tahmina Fox MD ALB/MODL /[id number] cc: MD Kenroy Mcdonough DO Copies: TAHMINA FOX MD Electronically Signed By: TAHMINA FOX MD 02/03/21 1149 PATIENT NAME: TOMAS VALDIVIA OPERATIVE REPORT DATE OF : 35 REPORT #: [id number] PHYSICIAN: TAHMINA FOX MD PCP: KENROY DHALIWAL DO REPORT IS CONFIDENTIAL AND NOT TO BE RELEASED WITHOUT AUTHORIZATION [address] [address] Signed KENROY DHALIWAL DO ~ Electronically Signed By: TAHMINA FOX MD 02/03/21 1149 PATIENT NAME: TOMAS VALDIVIA OPERATIVE REPORT DATE OF : 35 REPORT #: [id number] PHYSICIAN: TAHMINA FOX MD PCP: KENROY DHALIWAL DO REPORT IS CONFIDENTIAL AND NOT TO BE RELEASED WITHOUT AUTHORIZATION
--- NOTE | 2021-02-05 15:25 | PATH ---
[facility] [address] [place], [place] [address] Signed SPECIMEN(S): A ASCENDING POLYP SPECIMEN(S): B TRANSVERSE POLYP SPECIMEN SOURCE: A. ASCENDING POLYP B. TRANSVERSE POLYP CLINICAL HISTORY: Colonoscopy with MAC. History of colon polyps, rectal bleeding, diverticulosis. Postop: Diverticulosis, colon polyps. MICROSCOPIC DESCRIPTION: Histologic sections of all submitted blocks are examined by light microscopy. These findings, together with the gross examination, support the pathologic diagnosis. FINAL PATHOLOGIC DIAGNOSIS: A. Colon, ascending, polyp, polypectomy: - Fragments of tubular adenoma. - Negative for high-grade dysplasia or malignancy. B. Colon, transverse, polyp, polypectomy: - Colonic mucosa with no histologic abnormality. - Negative for dysplasia or malignancy. COMMENT: Regarding specimen B: Multiple additional deeper levels were examined. NAL:vlg:C2NR GROSS DESCRIPTION: Two specimens are received in two containers, labeled "EB." A. The specimen, labeled "EB, ascending colon polyp," is received in formalin and consists of multiple khan soft tissue fragment(s) that measure 1.3 x 1.2 x 0.2 cm in greatest dimension. The specimen is entirely submitted in cassette (A1). B. The specimen, labeled "EB, transverse colon polyp," is received in formalin and consists of one khan soft tissue fragment that measures 0.2 cm in greatest dimension. The specimen is entirely submitted in cassette (B1). JS (under the direct supervision of a pathologist) The Gross Description was prepared using a voice recognition system. The report was reviewed for accuracy; however, sound-alike word errors, addition and/or deletions may occur. If there is any PATIENT NAME: TOMAS VALDIVIA PATHOLOGY DATE OF : 35 REPORT #: [id number] PHYSICIAN: AZNDER LYLES PCP: JOSE JUAN DHALIWAL DO REPORT IS CONFIDENTIAL AND NOT TO BE RELEASED WITHOUT AUTHORIZATION [facility] [address] [place] [address] Signed question about this report, please contact Client Services. PERFORMING LABORATORY: The technical component was performed by [employer] [place] [address] (Transport Aircrewman: Zakia Gambino MD; CLIA# [id number]). Professional interpretation was performed by [employer] [facility], [address] [address] (CLIA# [id number]). Diagnostician: Marina Bourne MD Pathologist Electronically Signed 02/05/2021 Copies: ~ PATIENT NAME: TOMAS VALDIVIA PATHOLOGY DATE OF : 35 REPORT #: [id number] PHYSICIAN: ZANDER LYLES PCP: KARGAR,JOSE JUAN DO REPORT IS CONFIDENTIAL AND NOT TO BE RELEASED WITHOUT AUTHORIZATION
== END 2021-02-03 09:30 | disposition home or self-care (01) ==
LOC: OPS 06:15 → DS 06:15 → OPS 06:45 → DS 06:45 → OPS 09:30
PROVIDERS: ATTEND Colon & Rectal Surgery
PROC: 0DBL8ZX Excision of Transverse Colon, Via Natural or Artificial Opening Endoscopic, Diagnostic (ICD-10-PCS; 2021-02-03)
PROC: 0DBC8ZX Excision of Ileocecal Valve, Via Natural or Artificial Opening Endoscopic, Diagnostic (ICD-10-PCS; principal; 2021-02-03 06:45)
DX: Z12.11 Encounter for screening for malignant neoplasm of colon (principal); D12.2 Benign neoplasm of ascending colon; K57.31 Diverticulosis of large intestine without perforation or abscess with bleeding; I48.20 Chronic atrial fibrillation, unspecified; I12.9 Hypertensive chronic kidney disease with stage 1 through stage 4 chronic kidney disease, or unspecified chronic kidney disease; N18.30 Chronic kidney disease, stage 3 unspecified; E03.9 Hypothyroidism, unspecified; E66.01 Morbid (severe) obesity due to excess calories; Z79.01 Long term (current) use of anticoagulants; Z88.1 Allergy status to other antibiotic agents; Z88.8 Allergy status to other drugs, medicaments and biological substances; Z86.010 Personal history of colon polyps; Z68.33 Body mass index [BMI] 33.0-33.9, adult
CPT/HCPCS: J2704; J7121

== ENCOUNTER 2021-11-25 12:51 | Emergency (ER) | payer MEDICARE ==
[~2021-11-25] VITALS: Ht 165.1 cm; Wt 89.4 kg
[2021-11-25] MEDS ORDERED: DOXYCYCLINE MO100 MG PO (13:14)
[2021-11-25] MEDS ORDERED: CEPHALEXIN500 M1 PO (17:10)
--- NOTE | 2021-11-25 18:57 | EKG ---
[facility] [address] [facility] [place], [place] [address] Signed Atrial fibrillation with slow ventricular response Cannot rule out Anterior infarct (cited on or before 28-JAN-2021) Abnormal ECG When compared with ECG of 28-JAN-2021 09:57, Nonspecific T wave abnormality now evident in Inferior leads Confirmed by KENDRA GONZALEZ DO ([id number]) on 11/25/2021 6:57:46 PM Electronically Signed By: KENDRA GONZALEZ DO 11/25/21 1857 PATIENT NAME: NESHA VALDIVIABeto JOINER Electrocardiogram DATE OF : 35 PHYSICIAN: KENDRA GONZALEZ DO REPORT #: [id number] REPORT IS CONFIDENTIAL AND NOT TO BE RELEASED WITHOUT AUTHORIZATION
== END 2021-11-25 17:15 | disposition home or self-care (01) ==
LOC: ED 12:51
DX: L03.116 Cellulitis of left lower limb (principal); I13.0 Hypertensive heart and chronic kidney disease with heart failure and stage 1 through stage 4 chronic kidney disease, or unspecified chronic kidney disease; I50.9 Heart failure, unspecified; E87.6 Hypokalemia; E03.9 Hypothyroidism, unspecified; N18.30 Chronic kidney disease, stage 3 unspecified; I48.91 Unspecified atrial fibrillation; Z87.891 Personal history of nicotine dependence; Z88.8 Allergy status to other drugs, medicaments and biological substances; Z88.0 Allergy status to penicillin; Z88.1 Allergy status to other antibiotic agents; Z88.2 Allergy status to sulfonamides; Z79.899 Other long term (current) drug therapy
CPT/HCPCS: 36415; 71045; 73590; 80053; 83605; 83735; 83880; 84484; 85025; 87040; 93005; 93010; 93971; 96365; 96367; 99284-25; J0696; J3480

== ENCOUNTER 2021-12-29 13:25 | Emergency (ER) | payer MEDICARE ==
[~2021-12-29] VITALS: Ht 165.1 cm; Wt 89.4 kg
[~2021-12-29 13:25] MED LIST changes: +CEPHALEXIN500 M1 PO; +DOXYCYCLINE MO100 MG PO
[2021-12-29] MEDS ORDERED: CEPHALEXIN500 M1 PO (16:18)
--- NOTE | 2021-12-30 07:45 | EKG ---
[facility] [address] [facility] [place], [place] [address] Signed Atrial fibrillation with slow ventricular response Possible Anterior infarct (cited on or before 28-JAN-2021) Abnormal ECG When compared with ECG of 25-NOV-2021 14:14, No significant change was found Confirmed by LAUREN ENRIQUE MD ([id number]) on 12/30/2021 7:45:26 AM Electronically Signed By: LAUREN ENRIQUE MD 12/30/21 0745 PATIENT NAME: SHEATASIALINDSEY JOINER Electrocardiogram DATE OF : 35 PHYSICIAN: LAUREN ENRIQUE MD REPORT #: [id number] REPORT IS CONFIDENTIAL AND NOT TO BE RELEASED WITHOUT AUTHORIZATION
== END 2021-12-29 16:54 | disposition home or self-care (01) ==
LOC: ED 13:25
DX: L03.116 Cellulitis of left lower limb (principal); L03.115 Cellulitis of right lower limb; R60.0 Localized edema; E03.9 Hypothyroidism, unspecified; I12.9 Hypertensive chronic kidney disease with stage 1 through stage 4 chronic kidney disease, or unspecified chronic kidney disease; N18.30 Chronic kidney disease, stage 3 unspecified; I48.91 Unspecified atrial fibrillation; Z87.891 Personal history of nicotine dependence; Z88.0 Allergy status to penicillin; Z88.8 Allergy status to other drugs, medicaments and biological substances; Z88.1 Allergy status to other antibiotic agents; Z79.899 Other long term (current) drug therapy; Z79.01 Long term (current) use of anticoagulants
CPT/HCPCS: 36415; 71045; 80053; 83880; 84484; 85025; 93005; 93010; 96365; 96375; 99284-25; J0696; J1940

== ENCOUNTER 2022-01-20 13:44 | Emergency (ER) | payer MEDICARE ==
[~2022-01-20] VITALS: Ht 165.1 cm; Wt 89.8 kg
--- OUTSIDE RECORDS SUMMARY | 2022-01-20 13:52 | XMS ---
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 - 2 Visits in 30 Days CARE PROVIDERS There are no care providers on record at this time. Kitty has no Care Guidelines for this patient. Anjum VISIT COUNT (12 MO.) 4 [facility] [place] [facility] TOTAL 4 NOTE: Visits indicate total known visits. ED/C VISIT TRACKING (12 MO.) 01/20/2022 13:46 [facility] [place] TYPE: Emergency COMPLAINT: - ARMS RED/SWOLLEN 12/29/2021 13:26 [facility] [place] TYPE: Emergency COMPLAINT: - BOTH LEGS RED/SWOLLEN, SKIN RASH STOMACHE DIAGNOSES: - Allergy status to other antibiotic agents - Localized edema - Chronic kidney disease, stage 3 unspecified - Other nursing home (current) drug therapy - Cellulitis of right lower limb - care home (current) use of anticoagulants - Hypertensive chronic kidney disease with stage 1 through stage 4 chronic kidney disease, or unspecified chronic kidney disease - Hypothyroidism, unspecified - Allergy status to penicillin - Personal history of nicotine dependence - Allergy status to other drugs, medicaments and biological substances - Unspecified atrial fibrillation - Other specified soft tissue disorders - Cellulitis of left lower limb 11/25/2021 12:52 [facility] [place] TYPE: Emergency COMPLAINT: - L LEG SWELLING/PAIN DIAGNOSES: - Hypothyroidism, unspecified - Hypertensive heart and chronic kidney disease with heart failure and stage 1 through stage 4 chronic kidney disease, or unspecified chronic kidney disease - Pain in left lower leg - Allergy status to other drugs, medicaments and biological substances - Allergy status to sulfonamides - Allergy status to penicillin - Unspecified atrial fibrillation - Chronic kidney disease, stage 3 unspecified - Cellulitis of left lower limb - Heart failure, unspecified - Other long term care phlebotomist (current) drug therapy - Hypokalemia - Allergy status to other antibiotic agents - Personal history of nicotine dependence 03/16/2021 00:00 [facility] [place] TYPE: Emergency COMPLAINT: - L ARM/SHOULDERS PAIN INPATIENT VISIT TRACKING (12 MO.) No inpatient visits to display in this time frame [email or web address]
== END 2022-01-20 18:08 | disposition home or self-care (01) ==
LOC: ED 13:44
DX: R21 Rash and other nonspecific skin eruption (principal); E03.9 Hypothyroidism, unspecified; I12.9 Hypertensive chronic kidney disease with stage 1 through stage 4 chronic kidney disease, or unspecified chronic kidney disease; N18.30 Chronic kidney disease, stage 3 unspecified; I48.91 Unspecified atrial fibrillation; Z87.891 Personal history of nicotine dependence; Z88.0 Allergy status to penicillin; Z88.1 Allergy status to other antibiotic agents; Z88.8 Allergy status to other drugs, medicaments and biological substances; Z79.899 Other long term (current) drug therapy; Z79.01 Long term (current) use of anticoagulants
CPT/HCPCS: 99282

== ENCOUNTER 2022-03-09 13:27 | Emergency (ER) | payer MEDICARE ==
[~2022-03-09] VITALS: Ht 165.1 cm; Wt 97.6 kg
--- NOTE | ~2022-03-09 | EKG ---
[facility] [address] [facility] [place], [place] [address] Draft EK completed, results pending confirmation PATIENT NAME: VALDIVIATOMAS Electrocardiogram DATE OF : 35 PHYSICIAN: PRELIMINARY REPORT #: [id number] REPORT IS CONFIDENTIAL AND NOT TO BE RELEASED WITHOUT AUTHORIZATION
--- OUTSIDE RECORDS SUMMARY | 2022-03-09 13:30 | XMS ---
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 Care History Medical/Surgical 01/24/2022 [facility] Patient has follow up with PCP Dr. Dhaliwal on 01/25/2022. 01/24/2022 [facility] - Patient is currently established with [facility]. If patient is seen in the ED during business hours. Please contact CHWs at [facility]. Care Recommendation: If this patient has had 5 or more Emergency Department visits in the last 12 months.\T\nbsp;Patient will require education on the scope and purpose of the ED as an acute care provider not a Primary Care Provider and should not be utilized for chronic conditions.\T\nbsp; These are guidelines and the provider should exercise clinical judgment when providing care. E.D. VISIT COUNT (12 MO.) 5 [facility] TOTAL 5 NOTE: Visits indicate total known visits. 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 supervisor (current) drug therapy - Rash and other nonspecific skin eruption - Hypertensive chronic kidney disease with stage 1 through stage 4 chronic kidney disease, or unspecified chronic kidney disease - Chronic kidney disease, stage 3 unspecified - Allergy status to penicillin - Allergy status to other antibiotic agents - Hypothyroidism, unspecified - 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 - Personal history of nicotine dependence 12/29/2021 13:26 [facility] [place] TYPE: Emergency COMPLAINT: - BOTH LEGS RED/SWOLLEN, SKIN RASH STOMACHE DIAGNOSES: - Allergy status to other antibiotic agents - Localized edema - Chronic kidney disease, stage 3 unspecified - Other shelter (current) drug therapy - Cellulitis of right lower limb - [facility] (current) use of anticoagulants - Hypertensive chronic [...] limb - Heart failure, unspecified - Other extermination supervisor (current) drug therapy - Hypokalemia - Allergy status to other antibiotic agents - Personal history of nicotine dependence 03/16/2021 00:00 [facility] [place] TYPE: Emergency COMPLAINT: - L ARM/SHOULDERS PAIN INPATIENT VISIT TRACKING (12 MO.) No inpatient visits to display in this time frame [email or web address]
[2022-03-09] MEDS ORDERED: CEPHALEXIN500 M1 PO (15:53)
[2022-03-09] MEDS ORDERED: POTASSIUM CHLO20 ME1 PO (15:55)
== END 2022-03-09 17:38 | disposition home or self-care (01) ==
LOC: ED 13:27
DX: R60.0 Localized edema (principal); I10 Essential (primary) hypertension; E03.9 Hypothyroidism, unspecified; I48.91 Unspecified atrial fibrillation; I12.9 Hypertensive chronic kidney disease with stage 1 through stage 4 chronic kidney disease, or unspecified chronic kidney disease; N18.30 Chronic kidney disease, stage 3 unspecified; Z87.891 Personal history of nicotine dependence; Z88.8 Allergy status to other drugs, medicaments and biological substances; Z88.0 Allergy status to penicillin; Z88.1 Allergy status to other antibiotic agents; Z88.2 Allergy status to sulfonamides; Z79.899 Other long term (current) drug therapy
CPT/HCPCS: 36415; 71045; 80053; 83880; 84484; 85025; 93005; 93010; 99284-25

== ENCOUNTER 2022-09-22 15:58 | Emergency (ER) | payer MEDICARE ==
[~2022-09-22] VITALS: Ht 165.1 cm; Wt 93.0 kg
[~2022-09-22 15:58] MED LIST changes: +POTASSIUM CHLO20 ME1 PO
--- OUTSIDE RECORDS SUMMARY | 2022-09-22 16:00 | XMS ---
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 Care History Medical/Surgical 01/24/2022 [facility] Patient has follow up with PCP Dr. Dhaliwal on 01/25/2022. 01/24/2022 [facility] - Patient is currently established with [facility]. If patient is seen in the ED during business hours. Please contact CHWs at [facility]. Care Recommendation: If this patient has had [...] known visits. ED/UCC VISIT TRACKING (12 MO.) 09/22/2022 15:58 [facility] [place] TYPE: Emergency COMPLAINT: - FALL 03/09/2022 13:28 [facility] [place] TYPE: Emergency COMPLAINT: - L LEG SWOLLEN/RED DIAGNOSES: - Localized edema - Chronic kidney disease, stage 3 unspecified - Unspecified atrial fibrillation - Allergy status to other antibiotic agents - Allergy status to penicillin - Allergy status to other drugs, medicaments and biological substances - Hypothyroidism, unspecified - Personal history of nicotine dependence - Allergy status to sulfonamides - Essential (primary) hypertension - Hypertensive chronic kidney disease with stage 1 through stage 4 chronic kidney disease, or unspecified chronic kidney disease - Other supervisor intermediates (current) drug therapy 01/20/2022 13:46 [facility] [place] TYPE: Emergency COMPLAINT: - ARMS RED/SWOLLEN DIAGNOSES: - Other supervisor intermediates (current) drug therapy - senior living (current) use of anticoagulants - Allergy status to other drugs, medicaments and biological substances - Allergy status to other antibiotic agents - Chronic kidney disease, stage 3 unspecified - Rash and other nonspecific skin eruption - Personal history of nicotine dependence - Unspecified atrial fibrillation - Hypothyroidism, unspecified - Allergy status to penicillin - Hypertensive chronic kidney disease with stage 1 through stage 4 chronic kidney disease, or unspecified chronic kidney disease 12/29/2021 13:26 [facility] [place] TYPE: Emergency COMPLAINT: - BOTH LEGS RED/SWOLLEN, SKIN RASH STOMACHE DIAGNOSES: - Unspecified atrial fibrillation - Chronic kidney disease, stage 3 unspecified - Personal history of nicotine dependence - Allergy status to other antibiotic agents - Hypothyroidism, unspecified - senior living (current) use of anticoagulants - Other specified soft tissue disorders - Other supervisor intermediates (current) drug therapy - Allergy status to other drugs, medicaments and biological substances - Localized edema - Allergy status to penicillin - Hypertensive chronic kidney disease with stage 1 through stage 4 chronic kidney disease, or unspecified chronic kidney disease - Cellulitis of left lower limb - Cellulitis of right lower limb 11/25/2021 12:[address] [facility] [place] TYPE: Emergency COMPLAINT: - L LEG SWELLING/PAIN DIAGNOSES: - Hypokalemia - Pain in left lower leg - Heart failure, unspecified - Hypothyroidism, unspecified - Chronic kidney disease, stage 3 unspecified - Allergy status to penicillin - Allergy status to other antibiotic agents - Allergy status to other drugs, medicaments and biological substances - Other supervisor intermediates (current) drug therapy - Hypertensive heart and chronic kidney disease with heart failure and stage 1 through stage 4 chronic kidney disease, or unspecified chronic kidney disease - Cellulitis of left lower limb - Unspecified atrial fibrillation - Personal history of nicotine dependence - Allergy status to sulfonamides INPATIENT VISIT TRACKING (12 MO.) No inpatient visits to display in this time frame [id number]
== END 2022-09-22 19:08 | disposition home or self-care (01) ==
LOC: ED 15:58
DX: S00.03XA Contusion of scalp, initial encounter (principal); W18.30XA Fall on same level, unspecified, initial encounter; S00.83XA Contusion of other part of head, initial encounter; I10 Essential (primary) hypertension; E03.9 Hypothyroidism, unspecified; I48.91 Unspecified atrial fibrillation; Z87.891 Personal history of nicotine dependence; Z88.8 Allergy status to other drugs, medicaments and biological substances; Z88.0 Allergy status to penicillin; Z88.1 Allergy status to other antibiotic agents; Z88.2 Allergy status to sulfonamides; Z79.899 Other long term (current) drug therapy
CPT/HCPCS: 36415; 70450; 72125; 80053; 82150; 82553; 83605; 83690; 85025; 99284-25; A9270

== ENCOUNTER 2022-10-07 09:42 | Emergency (ER) | payer MEDICARE ==
[~2022-10-07] VITALS: Ht 165.1 cm; Wt 93.0 kg
--- OUTSIDE RECORDS SUMMARY | 2022-10-07 09:45 | XMS ---
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 Care History Medical/Surgical 01/24/2022 [facility] Patient has follow up with PCP Dr. Dhaliwal on 01/25/2022. 01/24/2022 [facility] - Patient is currently established with [facility]. If patient is seen in the ED during business hours. Please contact CHWs at [facility]. Care Recommendation: If this patient has had [...] providing care. E.D. VISIT COUNT (12 MO.) [address] [facility] TOTAL 6 NOTE: Visits indicate total known visits. ED/UCC VISIT TRACKING (12 MO.) 10/07/2022 09:42 [facility] [place] TYPE: Emergency COMPLAINT: - FALL 09/22/2022 15:58 [facility] [place] TYPE: Emergency COMPLAINT: - FALL DIAGNOSES: - Allergy status to other drugs, medicaments and biological substances - Unspecified injury of head, initial encounter - Hypothyroidism, unspecified - Fall on same level, unspecified, initial encounter - Allergy status to penicillin - Allergy status to sulfonamides - Unspecified atrial fibrillation - Contusion of scalp, initial encounter - Laceration without foreign body of left forearm, initial encounter - Other terminal operations supervisor (current) drug therapy - Personal history of nicotine dependence - Contusion of other part of head, initial encounter - Essential (primary) hypertension - Allergy status to other antibiotic agents 03/09/2022 13:28 [facility] [place] TYPE: Emergency COMPLAINT: - L LEG SWOLLEN/RED DIAGNOSES: - Personal history of nicotine dependence - Allergy status to sulfonamides - Essential (primary) hypertension - Hypertensive chronic kidney disease with stage 1 through stage 4 chronic kidney disease, or unspecified chronic kidney disease - Other terminal operations supervisor (current) drug therapy - Localized edema - Chronic kidney disease, stage 3 unspecified - Unspecified atrial fibrillation - Allergy status to other antibiotic agents - Allergy status to penicillin - Allergy status to other drugs, medicaments and biological substances - Hypothyroidism, unspecified 01/20/2022 13:46 [facility] [place] TYPE: Emergency COMPLAINT: - ARMS RED/SWOLLEN DIAGNOSES: - Personal history of nicotine dependence - Unspecified atrial fibrillation - Hypothyroidism, unspecified - Allergy status to penicillin - Hypertensive chronic kidney disease with stage 1 through stage 4 chronic kidney disease, or unspecified chronic kidney disease - Other terminal operations supervisor (current) drug therapy - 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 - Allergy status to other drugs, medicaments and biological substances - Allergy status to other antibiotic agents - Chronic kidney disease, stage 3 unspecified - Rash and other nonspecific skin eruption 12/29/2021 13:26 [facility] [place] TYPE: Emergency COMPLAINT: - BOTH LEGS RED/SWOLLEN, SKIN RASH STOMACHE DIAGNOSES: - Allergy status to other drugs, medicaments and biological substances - Localized edema - Allergy status to penicillin - Hypertensive chronic kidney disease with stage 1 through stage 4 chronic kidney disease, or unspecified chronic kidney disease - Cellulitis of left lower limb - Cellulitis of right lower limb - Unspecified atrial fibrillation - Chronic kidney disease, stage 3 unspecified - Personal history of nicotine dependence - Allergy status to other antibiotic agents - Hypothyroidism, unspecified - [facility] (current) use of anticoagulants - Other specified soft tissue disorders - Other shelter (current) drug therapy 11/25/2021 12:52 [facility] [place] TYPE: Emergency COMPLAINT: - L LEG SWELLING/PAIN DIAGNOSES: - Other terminal operations supervisor (current) drug therapy - Hypertensive heart and chronic kidney disease with heart failure and stage 1 through stage 4 chronic kidney disease, or unspecified chronic kidney disease - Cellulitis of left lower limb - Unspecified atrial fibrillation - Personal history of nicotine dependence - Allergy status to sulfonamides - Hypokalemia - Pain in left lower leg - Heart failure, unspecified - Hypothyroidism, unspecified - Chronic kidney disease, stage 3 unspecified - Allergy status to penicillin - Allergy status to other antibiotic agents - Allergy status to other drugs, medicaments and biological substances INPATIENT VISIT TRACKING (12 MO.) No inpatient visits to display in this time frame [id number]
== END 2022-10-07 13:16 | disposition home or self-care (01) ==
LOC: ED 09:42
DX: S51.012A Laceration without foreign body of left elbow, initial encounter (principal); S13.9XXA Sprain of joints and ligaments of unspecified parts of neck, initial encounter; E03.9 Hypothyroidism, unspecified; I10 Essential (primary) hypertension; I48.91 Unspecified atrial fibrillation; Z88.0 Allergy status to penicillin; Z88.8 Allergy status to other drugs, medicaments and biological substances; Z79.899 Other long term (current) drug therapy; W19.XXXA Unspecified fall, initial encounter
CPT/HCPCS: 70450; 72125; 99284-25; A9270

== ENCOUNTER 2022-12-02 14:48 | Emergency (ER) | payer MEDICARE ==
[~2022-12-02] VITALS: Ht 165.1 cm; Wt 89.4 kg
--- OUTSIDE RECORDS SUMMARY | 2022-12-02 14:57 | XMS ---
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 Care History Medical/Surgical 01/24/2022 [facility] Patient has follow up with PCP Dr. Dhaliwal on 01/25/2022. 01/24/2022 [facility] - Patient is currently established with [facility]. If patient is seen in the ED during business hours. Please contact CHWs at [facility]. Care Recommendation: If this patient [...] care. E.D. VISIT COUNT (12 MO.) 6 [facility] TOTAL 6 NOTE: Visits indicate total known visits. ED/UCC VISIT TRACKING (12 MO.) 12/02/2022 14:49 [facility] [place] TYPE: Emergency COMPLAINT: - BRUISED BACK 10/07/2022 09:42 [facility] [place] TYPE: Emergency COMPLAINT: - FALL DIAGNOSES: - Cervicalgia - Unspecified atrial fibrillation - Other solar project engineer (current) drug therapy - Unspecified fall, initial encounter - Sprain of joints and ligaments of unspecified parts of neck, initial encounter - Hypothyroidism, unspecified - Allergy status to penicillin - Allergy status to other drugs, medicaments and biological substances - Laceration without foreign body of left elbow, initial encounter - Essential (primary) hypertension 09/22/2022 15:58 [facility] [place] TYPE: Emergency COMPLAINT: - FALL DIAGNOSES: - Unspecified atrial fibrillation - Contusion of scalp, initial encounter - Laceration without foreign body of left forearm, initial encounter - Other solar project engineer (current) drug therapy - Personal history of [...] to penicillin - Allergy status to sulfonamides 03/09/2022 13:28 [facility] [place] TYPE: Emergency [...] or unspecified chronic kidney disease - Other care home (current) drug therapy 01/20/2022 13:46 [facility] [place] TYPE: Emergency COMPLAINT: - ARMS RED/SWOLLEN DIAGNOSES: - Other solar project engineer (current) drug therapy - detention (current) use of anticoagulants - Allergy status [...] other antibiotic agents - Hypothyroidism, unspecified - detention (current) use of anticoagulants - Other specified soft tissue disorders - Other care home (current) drug therapy - Allergy status to other drugs, medicaments and biological substances - Localized edema - Allergy status to penicillin - Hypertensive chronic kidney disease with stage 1 through stage 4 chronic kidney disease, or unspecified chronic kidney disease - Cellulitis of left lower limb - Cellulitis of right lower limb INPATIENT VISIT TRACKING (12 MO.) No inpatient visits to display in this time frame [id number]
[2022-12-02] MEDS ORDERED: SPIRONOLACTONE50 MG PO (16:16)
== END 2022-12-02 18:49 | disposition home or self-care (01) ==
LOC: ED 14:48
DX: S30.0XXA Contusion of lower back and pelvis, initial encounter (principal); W18.30XA Fall on same level, unspecified, initial encounter; I12.9 Hypertensive chronic kidney disease with stage 1 through stage 4 chronic kidney disease, or unspecified chronic kidney disease; E03.9 Hypothyroidism, unspecified; N18.30 Chronic kidney disease, stage 3 unspecified; I48.91 Unspecified atrial fibrillation; Z87.891 Personal history of nicotine dependence; Z79.899 Other long term (current) drug therapy; Z88.8 Allergy status to other drugs, medicaments and biological substances; Z88.0 Allergy status to penicillin; Z88.1 Allergy status to other antibiotic agents; Z88.2 Allergy status to sulfonamides
CPT/HCPCS: 74176; 99283-25; A9270

== ENCOUNTER 2022-12-19 14:57 | Inpatient (IN) | payer MEDICARE ==
[~2022-12-19] VITALS: Ht 165.1 cm; Wt 91.4 kg
[~2022-12-19 14:57] MED LIST changes: -B COMPLEX1 EAC1 PO; -CENTRUM SILVER1 EAC1 PO; +CENTRUM SILVER1 EAC3 PO; -DILTIAZEM HCL120 MG PO; +DILTIAZEM HCL60 MG PO; +SPIRONOLACTONE50 MG PO; +VITAMIN B-121000 MCG PO
--- OUTSIDE RECORDS SUMMARY | 2022-12-19 15:04 | XMS ---
PreManage Notification: TOMAS VALDIVIA Security Hypnotherapist Events No recent Security Events currently on file CRITERIA MET - [facility] - 2 Visits in 30 Days - [facility] - Has Care Guidelines CARE PROVIDERS JOSE JUAN DHALIWAL Internal Medicine 01/24/2022-Current PHONE: Unknown Kitty has no Care Guidelines for this patient. Care History Medical/Surgical 01/24/2022 [facility] Patient has follow up with PCP Dr. Dhaliwal on 01/25/2022. 01/24/2022 [facility] - Patient is currently established with [facility]. If patient is seen in the ED during business hours. Please contact CHWs at [facility]. Care Recommendation: If this patient has [...] providing care. E.D. VISIT COUNT (12 MO.) [address] [facility] TOTAL 7 NOTE: Visits indicate total known visits. ED/UCC VISIT TRACKING (12 MO.) 12/19/2022 14:57 [facility] [place] TYPE: Emergency COMPLAINT: - WEAKNESS 12/02/2022 14:49 [facility] [place] TYPE: Emergency COMPLAINT: - BRUISED BACK DIAGNOSES: - Contusion of lower back and pelvis, initial encounter - Fall on same level, unspecified, initial encounter - Personal history of nicotine dependence - Chronic kidney disease, stage 3 unspecified - Hypertensive chronic kidney disease with stage 1 through stage 4 chronic kidney disease, or unspecified chronic kidney disease - Unspecified atrial fibrillation - Allergy status to sulfonamides - Allergy status to penicillin - Allergy status to other antibiotic agents - Low back pain, unspecified - Other senior care (current) drug therapy - Hypothyroidism, unspecified - Allergy status to other drugs, medicaments and biological substances 10/07/2022 09:42 [facility] [place] TYPE: Emergency COMPLAINT: - FALL DIAGNOSES: - Unspecified fall, initial encounter - Sprain of joints and ligaments of unspecified parts of neck, initial encounter - Hypothyroidism, unspecified - Allergy status to penicillin - Allergy status to other drugs, medicaments and biological substances - Laceration without foreign body of left elbow, initial encounter - Essential (primary) hypertension - Cervicalgia - Unspecified atrial fibrillation - 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 (current) 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 therapy 09/22/2022 15:58 [facility] [place] TYPE: Emergency COMPLAINT: - FALL DIAGNOSES: - Personal history of nicotine dependence [...] of left forearm, initial encounter - Other senior care (current) drug therapy 03/09/2022 13:28 [facility] [place] TYPE: Emergency COMPLAINT: - L LEG SWOLLEN/RED DIAGNOSES: - Allergy status to penicillin - Allergy status to other drugs, medicaments and biological substances - Hypothyroidism, unspecified - Personal history of nicotine dependence - Allergy status to sulfonamides - Essential (primary) hypertension - Hypertensive chronic kidney disease with stage 1 through stage 4 chronic kidney disease, or unspecified chronic kidney disease - Other senior care (current) drug therapy - Localized edema - Chronic kidney disease, stage 3 unspecified - Unspecified atrial fibrillation - Allergy status to other antibiotic agents 01/20/2022 13:46 [facility] [place] TYPE: Emergency COMPLAINT: - ARMS RED/SWOLLEN DIAGNOSES: - Allergy status to other antibiotic agents - Chronic kidney disease, stage 3 unspecified - Rash and other nonspecific skin eruption - Personal history of nicotine dependence - Unspecified atrial fibrillation - Hypothyroidism, unspecified - Allergy status to penicillin - Hypertensive chronic kidney disease with stage 1 through stage 4 chronic kidney disease, or unspecified chronic kidney disease - 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 (current) drug therapy - terminologist (current) use of anticoagulants - Allergy status to other drugs, medicaments and biological substances 12/29/2021 13:26 [facility] [place] TYPE: Emergency COMPLAINT: - BOTH LEGS RED/SWOLLEN, SKIN RASH STOMACHE DIAGNOSES: - Hypothyroidism, unspecified - terminologist (current) use of anticoagulants - Other specified soft tissue disorders - 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 (current) drug therapy - Allergy status to [...] - Allergy status to other antibiotic agents INPATIENT VISIT TRACKING (12 MO.) No inpatient visits to display in this time frame [id number]
--- NOTE | 2022-12-19 20:35 | NUR ---
PT REQUIRED MULT STAFF TO MOVE FROM STRETCHER TO BED. PAINFUL IN LOWER EXTREMETIES. HARD OF HEARING. LIVES AT HOME WITH YEMI; DEBORAH, YEMI'S DAUGHTER HELPS HER. STATES SHE HAD TO "CALL DEBORAH" AT "3 AM" TO COME HELP HER SHE NEEDED TO HAVE A BM, PEE. STATES SHE USES HER 'S WHEELCHAIR SHE IS UNABLE TO MOVE AROUND IN THE PAST "FEW DAYS" STATES IN OCT 2022 SHE WAS ABLE TO GET UP FROM HER CHAIR AND WALK TO THE BATHROOM. HAS A CANE AND WALKER BUT TRIED NOT TO USE THEM. DEBORAH PUT HER PILLS IN A PILL THING SHE SAYS, AND OPENS PILL CONTAINER LAYS PILLS OUT SO SHE CAN TAKE THEM. KNOWS THAT SHE TAKES ELIQUIS BID, TOOK IT THIS AM. HAS SPASMS IN HER RIGHT LEG OFF AND ON. CURRENTLY HAVING ONE. WAS COOKING UNTL PAST FEW DAYS, REZA, DEBORAH'S SISTER WOULD HELP WITH MEALS WELL. DR KRUSE IS HER PHYSICIAN. SAYS SHE THINKS DEBORAH TAKES HER TO APPOINTMENT. USED A WHEELCHAIR TO COME FROM THE CAR TO THE OFFICE. HAS OWN TEETH, NO HEARING AIDES, WEARS GLASSES. PUREWICK IN PLACE, INCONT URINE THE "LAST FEW DAYS". EDUCATED STRUCTURAL TEST ENGINEER LIGHT, BED ALARM IN PLACE.
--- NOTE | 2022-12-19 21:00 | NUR ---
V/S AND I&O'S COMPLETED. LORAINE CARE DONE. PLACED NEW PUREWICK. PARIENT REPOSITONED TO FLOAT. WARM BLANKET PROVIDED.
--- NOTE | 2022-12-19 21:10 | NUR ---
EATING SANDWICH, BROTH. CALL LIGHT WITHIN REACH.
--- NOTE | 2022-12-19 21:30 | NUR ---
PT CALLED, REQUESTED TO USE BATHROOM. WITH SARASTEADY TRANSFER DEVICE PT UP WITH MODERATE AMOUNT ASSISTANCE. NEEDED HELP WITH MOVING LEGS OVER AND OFF BED WELL DEPENDENT ON STAFF TO MOVE UPPERBODY, ABLE TO STAND ONCE IN POSITION. BM IN BS, [facility]ED. ASSIST OF 3 STAFF FOR THIS TRANSFER. LEGS PAINFUL WHEN TOUCHED, MOVING. PT WONDERS IF SHE WILL NEED A WHEELCHAIR AT HOME.
--- NOTE | 2022-12-19 23:06 | NUR ---
ADMISSION ASSESSMENT COMPLETE. PT ALERT AND ORIENTED. SCHEDULED MEDS ADMIN PER EMAR. PT REPORTS CHRONIC RLE PAIN 02/22. PRN FOR PAIN ADMIN PER EMAR. BLE WITH SCATTERED OPEN WOUNDS OF VARIOUS SIZES. SKIN DRY AND SCALY ON LEGS AND FEET. PT REPORTS WOUNDS ARE CHRONIC. UNDER PANNUS EXCORIATED. NIO PLACED FOR DESENEX POWDER. TELE #[address] AFIB. HR 40-50'S. PT DENIES CHEST PAIN OR SOB. NO FURTHER NEEDS AT THIS TIME. PT ORIENTED TO ROOM AND NURSE CALL LIGHT. BED ALARM FOR SAFETY. CALL LIGHT IN REACH.
--- NOTE | 2022-12-20 02:45 | NUR ---
VS AND I&O COMPLETE. ASSISTED PT TO REPOSITION IN BED. FRESH WATER PROVIDED. ASSESSMENT COMPLETE. WARM BLANKETS PROVIDED. NO FURTHER NEEDS AT THIS TIME. CALL LIGHT IN REACH. BED ALARM FOR SAFETY.
--- NOTE | 2022-12-20 06:01 | NUR ---
PUREWICK LEAKING. LORAINE CARE DONE. CLEAN BRIEF AND NEW PUREWICK IN PLACE. PT REPORTS RLE PAIN 5/10. PRN FOR PAIN ADMIN PER EMAR. WARM BLANKETS PROVIDED. PT DENIES FURTHER NEEDS. CALL LIGHT IN REACH. BED ALARM FOR SAFETY.
--- NOTE | 2022-12-20 06:36 | NUR ---
BLOOD SUGAR NOTED TO BE 59 ON MORNING LABS. PROTEIN ENSURE AND ERIC CRACKERS PROVIDED. BLOOD SUGAR RECHECK 88. ADDITIONAL PROTEIN ENSURE PROVIDED.
--- NOTE | 2022-12-20 06:58 | NUR ---
BLOOD SUGAR RECHECK IS 82. JUICE PROVIDED. DR. GARCIA NOTIFIED. NO NEW ORDERS AT THIS TIME.
--- NOTE | 2022-12-20 07:15 | NUR ---
bedside report from Rosibel rn, pt has early breakfast and is encouraged to eat due to low bs of 88. repeat check in 15 min to continue to monitor. pt eating in bed with hob up, call light in reach. whiteboard updated and introduced nurse and student nurse for the day.
--- NOTE | 2022-12-20 08:30 | NUR ---
Spoke with pt and she states she cont. to live with her spouse in their home. They have been 36 years. He is dementia and his two daughters assist them daily from 10-1. Pt states she is exhausted as spouse's dementia is worsening. Pt states she has been ill with a UTI and became weak. Step daughters have been providing 2 person assist to bed and bathroom as pt requiring assist to get arround. She has been using her spouses walker at times. She states they both have SS and pensions. She would like placement to a SNF as she cannot walk on her own. I will call the step daughters to confirm and ask if the spouse wants her to go to [place] or out of town. I believe from past history, spouse requested placement out of town.
[2022-12-20] MEDS ORDERED: CALCIUM500 MG PO (09:54)
--- NOTE | 2022-12-20 09:54 | NUR ---
MED REC COMPLETE
--- NOTE | 2022-12-20 10:04 | NUR ---
RN IN WITH PT BARBI DURING HER ASSESSMENT. PT EFREN, HAS HARD TIME FOLLOWING COMMANDS. LOWER EXTREMITIES WITH REDNESS, DRY CRACKED LEGS AND EDEMA. PT REPORTS PAIN WITH BASIC MOVEMENT. HEEL PROTECTORS IN PLACE. PT IS UNABLE TO ASSIST IN BASIC CARE, NOTED TO HAVE JUST HAD 3 BM LOOSE STOOL WITH TOTAL CARE PROVIDED.
--- NOTE | 2022-12-20 11:10 | NUR ---
CALL FROM DAUGHTER ALLA. UPDATED HER ON PATIENT'S CONDITION. ALLA PLANS TO CALL BACK AFTER 2PM.
--- NOTE | 2022-12-20 11:30 | NUR ---
Called and spoke with Step daughter, Hima. UPdated pt is worried about placement to a SNF as she is concerned about cg for spouse while she would be gone. Per Hima, they will stay with spouse or take him home with them. She does feel pt needs a SNF as she was requiring a 2 person assist. She asks I notify the daughter, and I will do so. I again speak with pt as she is able to state he desires. Notified by Charge nurse, daughter has called twice and is making allegations about the spouse. Let her know, I am working with the . When I find a place for placement I will call the daughter.
--- NOTE | 2022-12-20 11:30 | NUR ---
IN WITH DR LEON AND PT, SHE IS ASLEEP RESP EVEN AND RN GENTLY WAKES PT AND ORIENTS PT TO RN AND DR. DR LEON SPOKE WITH DR LEE FROM PODIATRY AND DR LEON INSTRUCTED THIS RN TO PLACE UNNA BOOTS BILATERALLY TO PT LEGS ANKLE TO KNEE.
--- NOTE | 2022-12-20 14:29 | NUR ---
BILATERAL UNNA BOOT APPLIED TO PT LOWER EXTRIMITYS R LEG HAS OPEN ABRASION AREA THAT WAS COVERED WITH ADAPTIC NON ADHERENT DRSG THEN IODOSORB, BOTH LEGS HAVE 1 ROLL OF UNNA MCKEON COVERED WITH KERLEX THEN COBAN LIGHTLY TO HOLD. PT SLEEPS THROUGH DRSG CHANGE, SNORING LOUDLY, RESP EVEN. PT WITH CALL LIGHT IN NO DISTRESS - LEGS WITH DRSG CLEAN DRY INTACT - NEXT CHANGE IN 7 DAYS OR PRN PER ORDER - PHOTOGRAPHER AERIAL YVETTE PHOTOGRAPHED LEGS FOR CHART BEFORE DRSG.
--- NOTE | 2022-12-20 14:41 | NUR ---
during dressing change of legs - ccu called and the tele hr was noted to be in the 30's afib. this rn called dr andrew to notify and he is aware, called back to ccu to thank them and let know is aware. cont. to monitor and meds were held this am. pt continues to sleep.
--- NOTE | 2022-12-20 17:00 | NUR ---
BS [address] - STARTED TO WAKEN PT TO READY FOR MEAL - VERY SLEEPY.
--- NOTE | 2022-12-20 17:42 | NUR ---
CALL TO DR GARCIA, RE HR OF PT - PRINTED TELE STRIP TO CHART BRADYCARDIA NOTED FROM CCU RN TO BE 20 THEN 0 HR ON TELE - WHEN ASESSED IN ROOM PT SLEEPING SOUNDLY AND DENIES SYMPOTOMS WHEN AWAKEN, DR GARCIA ORDERED EKG THAT THIS RN COMPLETED, PT VERY SOMULENT AND NOTED APNIC EPISODES WERE WITNESSED, 02 2L NC PLACED AND CALLED TO CONFIRM ECHO FOR TOMORROW.
--- NOTE | 2022-12-20 17:55 | EKG ---
[facility] [address] [facility] [place] [address] Signed Atrial fibrillation with slow ventricular response Septal infarct (cited on or before 28-JAN-2021) Abnormal ECG When compared with ECG of 09-MAR-2022 14:59, Current undetermined rhythm precludes rhythm comparison, needs review Confirmed by Tavo Garcia MD () on 12/20/2022 5:55:41 PM Electronically Signed By: TAVO GARCIA MD 12/20/22 1755 PATIENT NAME: TOMAS VALDIVIA Electrocardiogram DATE OF : 35 PHYSICIAN: TAVO GARCIA MD REPORT #: [id number] REPORT IS CONFIDENTIAL AND NOT TO BE RELEASED WITHOUT AUTHORIZATION
--- NOTE | 2022-12-20 18:00 | NUR ---
PT INC OF URINE, SOUND ASLEEP AFTER THIS RN RAN EKG - PT ENC TO WAKE UP AND PARTICIPATE IN CARES WITH RESEARCH HYDRAULIC ENGINEER KHANG AND THIS RN, PT COMPLETE LINEN CHANGE AND WIPE DOWN, NEW ATTENDS AND PUREWICK IN PLACE. PT HOB UP AND SAT UP FOR MEAL - ENC PT TO WAKE UP AND EAT. REPORTS PAIN IN LEGS WITH MOVEMENT DURING LINEN CHANGE, IMPROVED AT REST. CALL LIGHT IN REACH.
--- NOTE | 2022-12-20 18:41 | NUR ---
RN IN ROOM TO ENCORAGE PT TO EAT SHE IS DOING WELL FEEDING HERSLEF DINNER - PT IV ROCEPHIN RUNNING ON IV R ARM WNL. PT ASKED "HOW LONG DID I SLEEP?" LET HER KNOW THAT IT WAS MOST OF THE AFTERNOON AND SHE SLEPT THROUGH THE LEG WRAPS. PT DID NOT RECALL THAT EVENT WITH THIS RN, PT HAS GOOD SWALLOW AND SMILES EVEN.
--- NOTE | 2022-12-20 18:57 | NUR ---
IN PT ROOM WITH DR GARCIA AND PT, PT TOLLERATED 100% OF DINNER WELL. PT DENIES NEEDS AT THIS TIME AND IS AWAKE AND ORIENTED.
--- NOTE | 2022-12-20 19:40 | NUR ---
REPORT RECEIVED FROM DAY SHIFT RN. PT LYING IN BED RESTING WITH EYES CLOSED. AWAKENS EASILY. DENIES NEEDS. O2 2L/NC IN PLACE. SpO2 100%. RESPIRATIONS EVEN. HR 50'S. AFIB. WHITE BOARD UPDATED. CALL LIGHT IN REACH. BED ALARM FOR SAFETY.
--- NOTE | 2022-12-20 19:45 | NUR ---
DRAFTER DETAIL LEÓN AND THIS RECREATIONAL THERAPY TECHNICIAN TOOK PATIENT OFF FROM BED SCOTT. LORAINE CLEANED AND CHANGED PUREWICK. PATIENT HAD BOWEL MOVEMENT.
--- NOTE | 2022-12-20 21:30 | NUR ---
V/S AND I&0'S COMPLETED. BLOOD SUGAR CHECK DONE. ABDOMINAL FOLD WIPED AND DRIED. RN APPLIED POWDER. RN WAS WITH PATIENT IN THE ROOM.
--- NOTE | 2022-12-20 22:00 | NUR ---
EVENING ASSESSMENT COMPLETE. SCHEDULED MEDS ADMIN PER EMAR. PT DENIES PAIN OR NAUSEA. TELE # [address] HR 50-60'S. AFIB. 2L/NC IN PLACE. SpO2 100%. DRESSINGS TO BLE CDI. ASSISTED PT TO REPOSITION IN BED. NO FURTHER NEEDS AT THIS TIME. CALL LIGHT IN REACH. BED ALARM FOR SAFETY.
--- NOTE | 2022-12-21 00:05 | NUR ---
CALL FROM CCU. PT WITH A PERIOD OF ASYSTOLE AND HR IN THE LOW 30'S. IN TO ASSESS PT. PT WITH LONG PERIOD OF APNEA. STERNAL RUB USED TO ROUSE PT. PT AWAKENS ALERT AND ORIENTED. VSS. BLOOD SUGAR 85. MD NOTIFIED. TELEPHONE ORDERS FOR BIPAP/CPAP THERAPY RECEIVED VERIFIED WITH READBACK METHOD.
--- NOTE | 2022-12-21 00:25 | NUR ---
RT IN ROOM TO SET UP BIPAP. PT REFUSING BIPAP OR CPAP AT LOWEST PRESSURE. EDUCATION PROVIDED. PT CONTINUES TO REFUSE, STATES "I JUST CAN'T DO IT". MD NOTIFIED AND WILL COME TO FLOOR TO DISCUSS OPTIONS WITH PT.
--- NOTE | 2022-12-21 01:17 | NUR ---
TX ORDERS RECEIVED. REPORTS GIVEN TO CCU RN. PT TRANSFERRED TO ROOM 126 WITH ALL BELONGINGS.
--- NOTE | 2022-12-21 01:22 | NUR ---
REPORT FROM LULU CASILLAS, PT ARRIVED TO ROOM 126 AT THISTIME
--- NOTE | 2022-12-21 02:02 | NUR ---
PT EMOTIONAL AFTER TRANSFER, TEARS NOTED IN EYES, SHE SAID "I JUST CANT STAND THAT BREATHING MACHINE, I FEEL SMOTHERED" THIS RN SAID "A LOT OF PEOPLE FEEL THAT WAY AT FIRST, USUALLY IT GETS BETTER AFTER A WHILE, THEY GET USED TO IT, YOU CAN ALSO TAKE A BRAKE FROM IT OCCASSIONALLY, IT DOES NOT HAVE TO BE CONSTANT ALL NIGHT" SHE SAID "I JUST DONT WANT TO" THIS RN GAVE EDUCATION IN REGARDS TO BENEFIT VS RISK, SHE SAID "WELL, I CAN CHANGE MY MIND " THIS RN SAID "ABSOLUTLY, IF YOU DO, JUST LET ME KNOW, IF YOU HAVE ANY QUESTIONS YOU CAN CALL ME ON YOUR CALL LIGHT" CALL LIGHT PLACED IN REACH. PT REPOSTIONED IN BED. SHE VERBALIZED NO FURTHER NEEDS OR QUESTIONS AT THIS TIME.
--- NOTE | 2022-12-21 02:59 | NUR ---
PT RESTING IN BED, EYES CLOSED RESP 14/HR, NO DISTRESS NOTED AT THIS TIME
--- NOTE | 2022-12-21 03:03 | NUR ---
PT RESTING IN BED EYES CLOSED NO DISTRESS NOTED, RESP RATE 12/MIN
--- NOTE | 2022-12-21 07:30 | NUR ---
REPORT RECIEVED. PATIENT HEART RATE DOWN TO 20, UPON ENTERING ROOM, PATIENT SLEEPING. WOKE PATIENT, HR UP TO 55. DENIES SHORTNESS OF BREATH OR DIZZINESS.
--- NOTE | 2022-12-21 08:00 | NUR ---
ASSESSMENT DONE. TALKED WITH PATIENT ABOUT HEART RATE AND HEART RHYTHM, ALSO TAKED WITH HER ABOUT SLEEP APNEA AND HOW THAT MIGHT BE ASSOCIATED WITH SLOW HEART RATE. DENIES PAIN. UNNA BOOTS INTACT.
--- NOTE | 2022-12-21 08:30 | NUR ---
TOOK BREAKFAST WELL.
--- NOTE | 2022-12-21 09:40 | NUR ---
2PA PATIENT UP TO BS FOR VOID AND BM. PATIENT WAS ABLE TO STAND AND PIVOT WITH 2PA, PATIENT WAS VERY APPREHENSIVE, BUT STOOD STRONG FOR A FEW MINUTES WHILE BEING CLEANED UP AND PIVOTING TO CHAIR. LEGS ELEVATED, SIDE TABLE AND CALL LIGHT IN EASY REACH. NO OTHER NEEDS AT THIS TIME.
--- NOTE | 2022-12-21 09:46 | NUR ---
SITTING UP IN CHAIR. PURE WICK IN PLACE.
--- NOTE | 2022-12-21 10:06 | NUR ---
BACK TO BED ECHO TO BE DONE AT BEDSIDE.
--- NOTE | 2022-12-21 10:46 | NUR ---
SPOKE TO PATIENT ABOUT THE DISCHARGE PLAN OF CARE. FAMILY AND PATIENT WOULD LIKE PATIENT TO GO TO [facility].REFERRAL TO [facility] SENT YESTERDAY AND WE ARE WAITING FOR APPROVAL, WILL SEND UPDATED DOCUMENTS PER [facility] REQUEST. ALSO DISCUSSED WITH THE PATIENT ABOUT USING CPAP AT [facility].RT WILL DISCUSS WITH PATIENT HOW IMPORTANT IT IS TO USE CPAP. PATIENT COULD USE NASAL CPAP INSTEAD OF A MASK. RT WILL TALK TO PATIENT.
--- NOTE | 2022-12-21 11:00 | NUR ---
FAMILY MEMBERS ARE IN ROOM. PATIENT DENIES PAIN.
--- NOTE | 2022-12-21 12:08 | NUR ---
LARGE UNMEASURED VOID CHARTED, PURE WICK HAD MOVED POSITIONS WITH PATIENT MOVEMENT IN BED. LINEN AND GOWN CHANGED, AT BEDSIDE. LUNCH PROVIDED. CALL LIGHT IN EASY REACH
--- NOTE | 2022-12-21 12:45 | NUR ---
TOOK LUNCH WELL. RT TALKING WITH PATIENT ABOUT USE OF CPAP. LESS BRADYCARDIA TODAY.
--- NOTE | 2022-12-21 14:52 | NUR ---
UNMEASURED VOID CHARTED PUREWICK APPARENTLY HAD SHIFTED ONCE AGAIN. PATIENT REPOSITIONED IN BED AND PUREWICK REPLACED. CALL LIGHT IN EASY REACH
--- NOTE | 2022-12-21 15:33 | NUR ---
RT SPOKE TO PATIENT ABOUT WEARING CPAP AT NIGHT. PATIENT MIGHT WHAT TO TRY THE NASAL CPAP. PATIENT WILL THINK ABOUT USING CPAP AND LET STAFF KNOWN WHAT SHE DECIDES. THE PATIENT DOES NOT LIKE THE MASK CPAP.
--- NOTE | 2022-12-21 15:56 | NUR ---
DR. GARCIA AWARE OF URINE CULTURE RESULTS. NO FUTHER ORDERS. PATIENT IS SLEEPING. HR 60, RR 10-12. HOB ELEVATED.
--- NOTE | 2022-12-21 16:40 | NUR ---
Notified by Danielle CASILLAS, pt is willing to try CPAP with other face masks. I will contact [facility] [place] to see if we can have a sample CPAP mask with nasal pillows. Called and spoke with Natalia at [facility] [place] and she states she can send with our deliverys tomorrow. She did let me know our sleep lab, may have some samples also. Called the Sleep Lab and they have samples they can give me. Called and spoke with Julian from and he states this will work with our CPAP for pt to try. Our concern is if pt admits to [place], but does not use a CPAP, her heart rate will again drop into the 30s and she will return to the ER. Called and updated Dr. Mccartney and he is in agreement for pt to try this. Picked up two different masks in from the sleep lab and took to Julian in CCU. Discussion with pt about what she wants her code status to be. Pt states she would want CPR and intubation. We then discussed her HENRY is very serious and if she does not use a CPAP she could . Pt states understanding and is willing to try. Pt does have some dementia and when Julian showed her the nasal pillows she states, "I can't run around with that all day, it would look silly." He did explain this is for night time use and attempted to discuss the seriousness of sleep apnea.
--- NOTE | 2022-12-21 17:05 | NUR ---
RT WORKING WITH PATIENT ON ADJUSTING CPAP.
--- NOTE | 2022-12-21 18:00 | NUR ---
Called and spoke with Anupama in CCU. Pt was able to wear for 30 min. and they will keep working with her. Called and updated OLEG at [facility]. They have agreed to take this pt on Monday, if she is ready for dc. He will contact [facility] tomorrow about renting a CPAP for this pt to use. Will follow up with everyone tomorrow.
--- NOTE | 2022-12-21 18:45 | NUR ---
UP TO COMMODE TO ATTEMPT TO HAVE BM. NEEDS ASSIST WITH TRANSFER.
--- NOTE | 2022-12-21 19:50 | NUR ---
PT ASSISTED BACK TO BED FROM [facility] BY MARLON MYLES RN, THIS RN INTO THE ROOM TO ASSIST. PT BACK TO BED, BOOSTED UP, WARM BLANKET GIVEN, PT ADJUSTED IN BED TO HAVE FEET LEVEL WITH HEART, HEEL PROTECTORS ON, PURWICK IN PLACE. PT FAMILY CALLED TO REQUEST SHE CALL THEM ONCE BACK IN BED. PT NOW ON THE PHONE WITH FAMILY AFTER THIS RN DIAL NUMBER FOR HER. WILL ROUND WHEN SHE IS FINISHED WITH PHONE CALL FOR EVENING PT CARE
--- NOTE | 2022-12-21 22:36 | NUR ---
PT ON BIPAP AT THIS TIME WITH NOSE PILLOW MASK. SHE SAID "I WILL TRY IT FOR AWHILE" VIOLETA Dorantes IN ROOM WITH THIS RN TO PLACE.
--- NOTE | 2022-12-21 23:11 | NUR ---
PT RESTING IN BED ALERT TO RN ROUNDING, PT REMAINS ON BIPAP NOSE PILLOWS FACE MASK. ASSISTED PT WITH DRINK OF WATER, AND THEN REPOSTIONED. NOTED URINE IN SUCTION CONTAINER.
--- NOTE | 2022-12-22 00:01 | NUR ---
PT IS RESTING IN BED, EYES CLOSED RESP RATE 15/MIN, NO DISTRESS NOTED, BIPAP ON WITH NOSE PILLOW MASK
--- NOTE | 2022-12-22 02:32 | NUR ---
PT CALLED TO HAVE FEET REPOSITIONED, ALSO TURN TO REPOSITION PT AT THIS TIME TO LEFT SIDE. SHE IS TOLERATING BIPAP FAIR AT THIS TIME, AGREEABLE TO KEEPING IT ON. SHE REPORTS SHE HAS NOT SLEPT WELL THUS FAR. NO OTHER NEW CONCERNS AT THIS TIME. NO PAUSES NOTED ON ECG THIS SHIFT WITH BIPAP ON.
--- NOTE | 2022-12-22 04:42 | NUR ---
CPAP..OFF AT THIS TIME FOR SMALL BREAK, PT REPORTS SHE HAS NOT SLEPT WELL OVER NIGHT, SHE HAS BEEN OBSERVED SNORING WHILE WEARING THE CPAP INTERMITTENLY WHILE ROUNDING. REPOSITIONED AND LINEN CHECK AT THIS TIME, PURWICK IN PLACE NO INCONT UNDER PT. ASSESSMENT DONE AND V/S NOTED TO BE STABLE AT THIS TIME.
--- NOTE | 2022-12-22 08:30 | NUR ---
THIS RN AND CORNELIO STUDENT IN AT THE BEDSIDE. PATIENT RESTING IN BED. PATIENT ASSESSMENT COMPELTED. PATIENT BREATH SOUNDS COARSE AT TIMES. PATIEN ON RA. BOWEL TONES ACTIVE. PATIENT HAS ONLY HAD 1 PAUSE OVER NIGHT PER REPORT WHEN PATIENT WAS SLEEPING OFF OF CPAP MACHINE. PATIENT STATES "I FEEL MUCH BETTER TODAY". PATIENTS LEGS WRAPPED IN DALTON BOOTS. WILL ENCOURAGE AMBULATION TOLERATED TODAY. WILL CONTINUE TO CLOSELY MONITOR. CORNELIO WILL BE PROVIDING PATIENT CARE WITH THIS RNS SUPERVISION.
--- NOTE | 2022-12-22 08:56 | NUR ---
DR GARCIA IN THE ROOM WITH PT SITTING UP IN BED AND EATING BREAKFAST. RADHA PERFORMING ASSESSMENT ON PT NOW WELL. PLAN OF CARE IS DISCUSSED WITH A POSSIBLE DC TO [facility]. WILL CONTINUE TO MONITOR.
--- NOTE | 2022-12-22 11:43 | NUR ---
pt needed to use bedside commode, pt had slight incontinence or urine and smear of bm on chux on recliner. assisted pt 1 PA to commode next to recliner, pt was able to stand and pivot slowly. pt voided and had small soft bm with 200 ml urine, cleansed pt's backside, applied clean chux to recliner, assisted pt back to recliner.
--- NOTE | 2022-12-22 12:04 | NUR ---
PT UP TO BEDSIDE COMMODE AT 1045. PT SITTING IN CHAIR WITH FEET UP. GAVE PT A BED BATH WHILE SITTING IN CHAIR. CALL LIGHT WAS WITHIN REACH. WILL CONTINUE TO MONITOR.
--- NOTE | 2022-12-22 12:19 | NUR ---
COVID TEST ORDERED AND RT ADVISED FOR [facility] DISCHARGE IN AM.
--- NOTE | 2022-12-22 12:34 | NUR ---
BOTH NARES SWABBED SENT TO LAB
--- NOTE | 2022-12-22 12:49 | NUR ---
PT UP TO BEDSIDE COMMODE TO VOID. PT SITTING BACK IN CHAIR WITH LEGS RAISED. PT TO COME IN TODAY TO WORK WITH PT. 1200 ASSESSMENT COMPLETED AT THIS TIME. CALL LIGHT WITHIN REACH. WILL CONTINUE TO MONITOR.
--- NOTE | 2022-12-22 13:13 | NUR ---
PHYSICAL THERAPY IN ROOM WITH PATIENT ASESSING PTS STRENGTHS AND MOTION. PT SITTING IN CHAIR WORKING WITH PT, FOLLOWING INSTRUCTIONS EASILY. WILL CONTINUE TO MONITOR.
--- NOTE | 2022-12-22 14:10 | NUR ---
PT SLEEPING PEACEFULLY IN THE CHAIR WITH HER FEET UP AND HER HEEL PADS ON. CALL LIGHT WITHIN REACH. WILL CONTINUE TO MONITOR.
--- NOTE | 2022-12-22 14:30 | NUR ---
PT ASLEEP, DID NOT DISTURB. WILL CHECK BACK
[2022-12-22] MEDS ORDERED: CEFPODOXIME PR200 MG PO (15:38)
--- NOTE | 2022-12-22 16:30 | NUR ---
PATIENT RESTING IN THE CHAIR AT THIS TIME. PATIENT TALKING ON THE PHONE. PATIENT DENIES ANY NEEDS. WILL CONTINUE TO CLOSELY MONITOR.
--- NOTE | 2022-12-22 18:57 | NUR ---
THIS RN IN TO DO PATIENTS ABX. PATIENT SITTING UP IN THE CHAIR. PATIENT FINISHED HER DINNER AND TOLERATED WELL. PATIENT VISITING ON THE PHONE WITH HER DAUGHTER. PATIENTS PUREWICK EMPTIED. NO OTHER REQUESTS AT THIS TIME. WILL CONTINUE TO CLOSELY MONITOR.
--- NOTE | 2022-12-22 20:00 | NUR ---
Bedside report received from outgoing nurse, VINNY Nye. Initial assessment performed with no critical interventions required. Patient sitting in bedside chair with purewick in place and IV abx infusing via PIV. All vital signs stable with no complaints or indications of respiratory distress, fever or pain. Comfort measures performed and snack given. Will continue to monitor.
--- NOTE | 2022-12-22 22:00 | NUR ---
Patient assisted back to bed with 2 person assist. All vital signs stable. CPAP with 40% FiO2 applied to patient per request. Comfort measures performed and patient is watching television.
--- NOTE | 2022-12-23 | NUR ---
Repeat assessment performed with no acute changes since previous assessment unless noted. All vital signs stable with no complaints or indications of respiratpry distress, fever or pain. Patient remains on CPAP but keeps taking mask on and off. Comfort measures provided. Will continue to monitor.
--- NOTE | 2022-12-23 02:00 | NUR ---
Patient resting quietly after removing CPAP and RT called to bedside. CPAP will remain off for the timebeing. All vital signs stable.
--- NOTE | 2022-12-23 04:00 | NUR ---
Repeat assessment performed with no acute changes since previous assessment unless noted. Patient remained off CPAP per request. All vital signs stable with no indications of respiratory distress, bradycardia, fever or pain. Patient sleeping comfortably. Will continue to monitor.
--- NOTE | 2022-12-23 06:00 | NUR ---
Patient sleeping comfortably with no signs of distress. All vital signs stable. Purewich remains in place with urine canister emptied.
--- NOTE | 2022-12-23 07:30 | NUR ---
REPORT RECIEVED FROM EXTENSION WORKER RN. PATIENT RESTING IN BED AT THIS TIME. PATIENT CALLS APPROPRIATELY. WILL CONTINUE TO CLOSELY MONITOR.
--- NOTE | 2022-12-23 08:36 | NUR ---
PATIENT AWAKE IN BED, BREAKFAST IN FRONT. FACE AND HANDS WASHED. VITALS CHARTED.
--- NOTE | 2022-12-23 09:00 | NUR ---
PATIENT ASSESSMENT COMPLETED. PATIENT RESTING IN THE BED. PATIENTS BREATH SOUNDS CLEAR. BOWEL TONES ACTIVE. PATIENT HAS BILATERAL DALTON BOOTS IN PLACE. PATIENT LEGS ARE SENSITIVE TO THE TOUCH. NO OTHER COMPLAINTS AT THIS TIME. PATIENT WILL BE GETTING DISCHARGED TO [facility] TODAY. PAPERWORK IS IN ORDER. [facility] HAS BEEN WORKING WITH THE FACILITY. NO OTHER NEEDS AT THIS TIME. WILL PREPARE PATIENT FOR DISCHARGE. PATIENT EATING BREAKFAST AT THIS TIME.
--- NOTE | 2022-12-23 10:30 | NUR ---
DISCHARGE REVIEWED WITH PATIENT. WILL CALL AND GIVE REPORT TO [facility]. PACKET OF PAPERWORK SENT WITH PATIENT. CPAP NASAL MASK SENT WITH PATIENT AND OTHER BELONGINGS. ERIC PARADA IN TO DISCHARGE PATIENT TO THE FRONT TO WAIT FOR WHEELCHAIR [facility]AN TRANSPORT.
--- NOTE | 2022-12-23 10:45 | NUR ---
REPORT CALLED TO RAMILA CASILLAS FROM [facility]. REVIEWED PLAN OF CARE FOR PATIENT. NO OTHER QUESTIONS AT THIS TIME. BELONGINGS AND PAPERWORK SENT WITH PATIENT. NO OTHER QUESTIONS AT THIS TIME.
--- NOTE | 2022-12-23 21:43 | EKG ---
[facility] [address] [place], [place] [address] Signed Atrial fibrillation with slow ventricular response Abnormal ECG No previous ECGs available Confirmed by LAUREN ENRIQUE MD ([id number]) on 12/23/2022 9:42:55 PM Electronically Signed By: LAUREN ENRIQUE MD [id number] PATIENT NAME: TOMAS VALDIVIA Electrocardiogram DATE OF : 35 PHYSICIAN: LAUREN ENRIQUE MD REPORT #: [id number] REPORT IS CONFIDENTIAL AND NOT TO BE RELEASED WITHOUT AUTHORIZATION
== END 2022-12-23 10:30 | DRG 690 ==
LOC: ED 14:57 → MS 14:58 → ED 18:52 → MS 18:52 → CCU 12-21 01:18
PROVIDERS: ADMIT Family Medicine; ATTEND Internal Medicine
DX: N39.0 Urinary tract infection, site not specified (principal); I13.0 Hypertensive heart and chronic kidney disease with heart failure and stage 1 through stage 4 chronic kidney disease, or unspecified chronic kidney disease; Z20.822 Contact with and (suspected) exposure to COVID-19; B96.20 Unspecified Escherichia coli [E. coli] as the cause of diseases classified elsewhere; I48.91 Unspecified atrial fibrillation; I50.9 Heart failure, unspecified; D69.6 Thrombocytopenia, unspecified; N18.9 Chronic kidney disease, unspecified; E03.9 Hypothyroidism, unspecified; I08.0 Rheumatic disorders of both mitral and aortic valves; G47.33 Obstructive sleep apnea (adult) (pediatric); Z96.653 Presence of artificial knee joint, bilateral; Z99.89 Dependence on other enabling machines and devices; Z98.41 Cataract extraction status, right eye; Z98.42 Cataract extraction status, left eye; Z90.49 Acquired absence of other specified parts of digestive tract; Z90.89 Acquired absence of other organs; Z90.710 Acquired absence of both cervix and uterus; Z88.0 Allergy status to penicillin; Z88.1 Allergy status to other antibiotic agents; Z88.2 Allergy status to sulfonamides; Z88.8 Allergy status to other drugs, medicaments and biological substances; Z79.01 Long term (current) use of anticoagulants; Z79.890 Hormone replacement therapy; Z79.899 Other long term (current) drug therapy
CPT/HCPCS: 36415; 51701; 71045; 80053; 81001; 83735; 83880; 84100; 85025; 85060; 87088; 87502; 93005; 93010; 93306; 94660; 94760; 97162; 97165; 99285-25; A9270; C9803; G0480; J0696; J1940; U0003

== ENCOUNTER 2023-06-02 13:38 | Inpatient (IN) | payer MEDICARE ==
[~2023-06-02] VITALS: Ht 165.1 cm; Wt 91.0 kg
--- OUTSIDE RECORDS SUMMARY | ~2023-06-02 | XMS | Continuity of Care Document ---
Demographics + + + | Address | [address] | | | [place] [address] | + + + | Preferred Language | Unknown | + + + | Marital Status | | + + + | Zoroastrian Affiliation | Unknown | + + + | Race | or | + + + | Ethnic Group | Not or | + + + Author + + + | Author | [facility] | + + + | Organization | [facility] | + + + | Address | [address] | | | [place] [address] | + + + | Phone | | + + + Care Team Providers + + + + | Care Quilting Supervisor Name | Role | Phone | + + + + Unavailable | Unavailable | + + + + Unavailable | Unavailable | + + + + Unavailable | Unavailable | + + + + Unavailable | Unavailable | + + + + Unavailable | Unavailable | + + + + Unavailable | Unavailable | + + + + Allergies and Intolerances + + + + + + | date | description | facility | reaction | severity | + + + + + + | (no date) | Vilanterol | [facility] | (no reaction) | (no severity) | | [facility] | | | + + + + + + | (no date) | | [facility] | (no reaction) | (no severity) | | | Sulfamethoxazol | [facility] | | | + + + + + + | (no date) | | [facility] | (no reaction) | (no severity) | | | sulfamethoxazol | [facility] | | | + + + + + + | (no date) | Trimethoprim | [facility] | (no reaction) | (no severity) | | [facility] | | | + + + + + + | (no date) | trimethoprim | [facility] | (no reaction) | (no severity) | | [facility] | | | + + + + + + | (no date) | Nystatin | [facility] | (no reaction) | (no severity) | | [facility] | | | + + + + + + | (no date) | Bacitracin | [facility] | (no reaction) | (no severity) | | [facility] | | | + + + + + + | (no date) | bacitracin | [facility] | (no reaction) | (no severity) | | [facility] | | | + + + + + + | (no date) | Vilanterol | [facility] | (no reaction) | (no severity) | | [facility] | | | + + + + + + | (no date) | vilanterol | [facility] | (no reaction) | (no severity) | | [facility] | | | + + + + + + | (no date) | Ciprofloxacin | [facility] | (no reaction) | (no severity) | | [facility] | | | + + + + + + | (no date) | ciprofloxacin | [facility] | (no reaction) | (no severity) | | [facility] | | | + + + + + + | (no date) | Mild | [facility] | (no reaction) | (no severity) | | [facility] | | | + + + + + + | (no date) | Rash | [facility] | (no reaction) | (no severity) | | [facility] | | | + + + + + + | (no date) | Trimethoprim | [facility] | (no reaction) | (no severity) | | | [facility] | | | + + + + + + | (no date) | | [facility] | (no reaction) | (no severity) | | | Sulfamethoxazol | [facility] | | | + + + + + + | (no date) | Bacitracin | [facility] | (no reaction) | (no severity) | | [facility] | | | + + + + + + | (no date) | Polymyxin b | [facility] | (no reaction) | (no severity) | | [facility] | | | + + + + + + | (no date) | Ciprofloxacin | [facility] | (no reaction) | (no severity) | | | [facility] | | | + + + + + + | (no date) | Neomycin | [facility] | (no reaction) | (no severity) | | [facility] | | | + + + + + + | (no date) | Bacitracin | [facility] | (no reaction) | (no severity) | | | [facility] | | | + + + + + + | (no date) | Ciprofloxacin | [facility] | (no reaction) | (no severity) | | | [facility] | | | + + + + + + | (no date) | Vilanterol | [facility] | (no reaction) | (no severity) | | | [facility] | | | + + + + + + | (no date) | Penicillin | [facility] | (no reaction) | (no severity) | | | [facility] | | | + + + + + + | (no date) | Neomycin | [facility] | (no reaction) | (no severity) | | | [facility] | | | + + + + + + | (no date) | neomycin | [facility] | (no reaction) | (no severity) | | | [facility] | | | + + + + + + | (no date) | Nystatin | [facility] | (no reaction) | (no severity) | | | [facility] | | | + + + + + + | (no date) | nystatin | [facility] | (no reaction) | (no severity) | | [facility] | | | + + + + + + | (no date) | Penicillin | [facility] | (no reaction) | (no severity) | | | [facility] | | | + + + + + + | (no date) | Polymyxin b | [facility] | (no reaction) | (no severity) | | | [facility] | | | + + + + + + | (no date) | polymyxin B | [facility] | (no reaction) | (no severity) | | | [facility] | | | + + + + + + | (no date) | Trimethoprim | [facility] | (no reaction) | (no severity) | | | [facility] | | | + + + + + + | (no date) | Nystatin | [facility] | (no reaction) | (no severity) | | | [facility] | | | + + + + + + | (no date) | Neomycin | [facility] | (no reaction) | (no severity) | | | [facility] | | | + + + + + + | (no date) | Polymyxin b | [facility] | (no reaction) | (no severity) | | | [facility] | | | + + + + + + | (no date) | | [facility] | (no reaction) | (no severity) | | | Sulfamethoxazol | [facility] | | | + + + + + + | (no date) | Penicillin | [facility] | (no reaction) | (no severity) | | [facility] | | | + + + + + + | (no date) | Penicillins | [facility] | (no reaction) | (no severity) | | | [facility] | | | + + + + + + | (no date) | Penicillin | [facility] | (no reaction) | (no severity) | | | [facility] | | | + + + + + + Encounters No information. Functional Status No information. Immunizations + + + + | date | description | facility | + + + + | 2022-09-22 00:00 | No vaccine administered | [facility] | + + + + | 2022-10-07 00:00 | No vaccine administered | [facility] | + + + + Medications + + + + | date | description | facility | + + + + | 2022-09-23 00:00 | APIXABAN | [facility] | + + + + | 2022-10-14 00:00 | APIXABAN | [facility] | + + + + | 2022-12-02 00:00 | APIXABAN | [facility] | + + + + | 2022-12-23 00:00 | APIXABAN | [facility] | + + + + | 2022-09-22 00:00 | apixaban 5 MG Oral Tablet | [facility] | | | [Eliquis] | | + + + + | 2022-10-07 00:00 | apixaban 5 MG Oral Tablet | [facility] | | | [Eliquis] | | + + + + | 2022-09-23 00:00 | POTASSIUM CHLORIDE | [facility] | + + + + | 2022-10-14 00:00 | POTASSIUM CHLORIDE | [facility] | + + + + | 2022-09-22 00:00 | potassium chloride 20 MEQ | [facility] | | | Extended Release Oral | | | | Tablet [K-Ta | | + + + + | 2022-10-07 00:00 | potassium chloride 20 MEQ | [facility] | | | Extended Release Oral | | | | Tablet [K-Ta | | + + + + | 2022-09-23 00:00 | DOXYCYCLINE MONOHYDRATE | [facility] | + + + + | 2022-10-14 00:00 | DOXYCYCLINE MONOHYDRATE | [facility] | + + + + | 2022-12-02 00:00 | DOXYCYCLINE MONOHYDRATE | [facility] | + + + + | 2022-12-23 00:00 | DOXYCYCLINE MONOHYDRATE | [facility] | + + + + | 2022-09-22 00:00 | doxycycline monohydrate | [facility] | | | 100 MG Oral Capsule | | + + + + | 2022-10-07 00:00 | doxycycline monohydrate | [facility] | | | 100 MG Oral Capsule | | + + + + | 2022-03-09 00:00 | Microencapsulated | [facility] | | | potassium chloride 20 MEQ | | | | Extended Release | | + + + + | 2022-03-09 00:00 | POTASSIUM CHLORIDE | [facility] | + + + + | 2021-11-25 00:00 | CEPHALEXIN | [facility] | + + + + | 2021-11-25 00:00 | CEPHALEXIN | [facility] | + + + + | 2021-11-25 00:00 | CEPHALEXIN | [facility] | + + + + | 2021-11-25 00:00 | CEPHALEXIN | [facility] | + + + + | 2022-03-09 00:00 | CEPHALEXIN | [facility] | + + + + | 2021-11-25 00:00 | cephalexin 500 MG Oral | [facility] | | | Tablet | | + + + + | 2022-03-09 00:00 | cephalexin 500 MG Oral | [facility] | | | Tablet | | + + + + | 2022-12-02 00:00 | SPIRONOLACTONE | [facility] | + + + + | 2022-12-23 00:00 | SPIRONOLACTONE | [facility] | + + + + | 2022-09-23 00:00 | | [facility] | | | TRIAMTERENE/HYDROCHLOROTHIA | | | | ZID | | + + + + | 2022-10-14 00:00 | | [facility] | | | TRIAMTERENE/HYDROCHLOROTHIA | | | | ZID | | + + + + | 2022-12-02 00:00 | | [facility] | | | TRIAMTERENE/HYDROCHLOROTHIA | | | | ZID | | + + + + | 2022-12-23 00:00 | | [facility] | | | TRIAMTERENE/HYDROCHLOROTHIA | | | | ZID | | + + + + | 2022-09-22 00:00 | hydrochlorothiazide 25 MG | [facility] | | | / triamterene 37.5 MG Oral | | | | Capsule | | + + + + | 2022-10-07 00:00 | hydrochlorothiazide 25 MG | [facility] | | | / triamterene 37.5 MG Oral | | | | Capsule | | + + + + | 2022-09-23 00:00 | TORSEMIDE | [facility] | + + + + | 2022-10-14 00:00 | TORSEMIDE | [facility] | + + + + | 2022-12-02 00:00 | TORSEMIDE | [facility] | + + + + | 2022-12-23 00:00 | TORSEMIDE | [facility] | + + + + | 2022-09-22 00:00 | torsemide 20 MG Oral | [facility] | | | Tablet | | + + + + | 2022-10-07 00:00 | torsemide 20 MG Oral | [facility] | | | Tablet | | + + + + | 2022-12-23 00:00 | CALCIUM CARBONATE | [facility] | + + + + | 2022-12-22 00:00 | CEFPODOXIME PROXETIL | [facility] | + + + + | 2022-12-23 00:00 | CYANOCOBALAMIN (VITAMIN | [facility] | | | ) | | + + + + | 2022-09-23 00:00 | FUROSEMIDE | [facility] | + + + + | 2022-10-14 00:00 | FUROSEMIDE | [facility] | + + + + | 2022-12-02 00:00 | FUROSEMIDE | [facility] | + + + + | 2022-12-23 00:00 | FUROSEMIDE | [facility] | + + + + | 2022-09-22 00:00 | furosemide 20 MG Oral | [facility] | | | Tablet | | + + + + | 2022-10-07 00:00 | furosemide 20 MG Oral | [facility] | | | Tablet | | + + + + | 2022-09-23 00:00 | CHOLECALCIFEROL (VITAMIN | [facility] | | | D3) | | + + + + | 2022-10-14 00:00 | CHOLECALCIFEROL (VITAMIN | [facility] | | | D3) | | + + + + | 2022-12-02 00:00 | CHOLECALCIFEROL (VITAMIN | [facility] | | | D3) | | + + + + | 2022-12-23 00:00 | CHOLECALCIFEROL (VITAMIN | [facility] | | | D3) | | + + + + | 2022-09-22 00:00 | cholecalciferol 0.05 MG | [facility] | | | Oral Capsule | | + + + + | 2022-10-07 00:00 | cholecalciferol 0.05 MG | [facility] | | | Oral Capsule | | + + + + | 2022-09-23 00:00 | DILTIAZEM HCL | [facility] | + + + + | 2022-10-14 00:00 | DILTIAZEM HCL | [facility] | + + + + | 2022-12-02 00:00 | DILTIAZEM HCL | [facility] | + + + + | 2022-09-22 00:00 | diltiazem hydrochloride | [facility] | | | 120 MG Oral Tablet | | + + + + | 2022-10-07 00:00 | diltiazem hydrochloride | [facility] | | | 120 MG Oral Tablet | | + + + + | 2022-12-23 00:00 | DILTIAZEM HCL | [facility] | + + + + | 2022-09-23 00:00 | LEVOTHYROXINE SODIUM | [facility] | + + + + | 2022-10-14 00:00 | LEVOTHYROXINE SODIUM | [facility] | + + + + | 2022-12-02 00:00 | LEVOTHYROXINE SODIUM | [facility] | + + + + | 2022-12-23 00:00 | LEVOTHYROXINE SODIUM | [facility] | + + + + | 2022-09-22 00:00 | levothyroxine sodium 0.025 | [facility] | | | MG Oral Tablet | | + + + + | 2022-10-07 00:00 | levothyroxine sodium 0.025 | [facility] | | | MG Oral Tablet | | + + + + | 2022-09-23 00:00 | LEVOTHYROXINE SODIUM | [facility] | + + + + | 2022-10-14 00:00 | LEVOTHYROXINE SODIUM | [facility] | + + + + | 2022-12-02 00:00 | LEVOTHYROXINE SODIUM | [facility] | + + + + | 2022-12-23 00:00 | LEVOTHYROXINE SODIUM | [facility] | + + + + | 2022-09-22 00:00 | levothyroxine sodium 0.125 | [facility] | | | MG Oral Tablet | | + + + + | 2022-10-07 00:00 | levothyroxine sodium 0.125 | [facility] | | | MG Oral Tablet | | + + + + Problems + + + + | date | description | facility | + + + + | 2020-08-17 19:47 | Unspecified fracture of | [facility] | | | facial bones, initial [facility] | | | encounter for closed | | | | fracture | | + + + + | 2020-08-17 19:47 | Traumatic subdural | [facility] | | | hemorrhage with loss of | [facility] | | | consciousness of | | | | unspecified duration, | | | | initial encounter | | + + + + | 2022-01-20 00:00 | Rash and nonspecific skin | [facility] | | | eruption | | + + + + | 2022-01-20 00:00 | Rash | [facility] | + + + + | 2022-01-20 00:00 | Rash | [facility] | + + + + | 2022-01-20 00:00 | Rash | [facility] | + + + + | 2022-01-20 00:00 | Rash | [facility] | + + + + | 2022-03-09 00:00 | Dependent edema | [facility] | + + + + | 2022-03-09 00:00 | Dependent edema | [facility] | + + + + | 2022-03-09 00:00 | Dependent edema | [facility] | + + + + | 2022-03-09 00:00 | Dependent edema | [facility] | + + + + | 2022-03-09 13:28 | Hypothyroidism, | [facility] | | | unspecified [facility] | + + + + | 2022-03-09 13:28 | Essential (primary) | [facility] | | | hypertension | [facility] | + + + + | 2022-03-09 13:28 | Hypertensive chronic kidney | [facility] | | | disease with stage 1 | [facility] | | | through stage 4 chronic | | | | kidney disease, or | | | | unspecified chronic kidney | | | | disease | | + + + + | 2022-03-09 13:28 | Unspecified atrial | [facility] | | | fibrillation | [facility] | + + + + | 2022-03-09 13:28 | Chronic kidney disease, | [facility] | | | stage 3 unspecified | [facility] | + + + + | 2022-03-09 13:28 | Localized edema | [facility] | | | [facility] | + + + + | 2022-03-09 13:28 | Other usp (current) | [facility] | | | drug therapy | [facility] | + + + + | 2022-03-09 13:28 | Personal history of | [facility] | | | nicotine dependence [facility] | + + + + | 2022-03-09 13:28 | Allergy status to | [facility] | | | penicillin | [facility] | + + + + | 2022-03-09 13:28 | Allergy status to other | [facility] | | | antibiotic agents | [facility] | + + + + | 2022-03-09 13:28 | Allergy status to | [facility] | | | sulfonamides | [facility] | + + + + | 2022-03-09 13:28 | Allergy status to other | [facility] | | | drugs, medicaments and | [facility] | | | biological substances | | + + + + | 2022-09-22 00:00 | Hematoma of scalp | [facility] | + + + + | 2022-09-22 00:00 | Hematoma of scalp | [facility] | + + + + | 2022-09-22 00:00 | Hematoma of scalp | [facility] | + + + + | 2022-09-22 00:00 | Hematoma of scalp | [facility] | + + + + | 2022-09-22 00:00 | Fall | [facility] | + + + + | 2022-09-22 00:00 | Fall | [facility] | + + + + | 2022-09-22 00:00 | Fall | [facility] | + + + + | 2022-09-22 00:00 | Fall | [facility] | + + + + | 2022-12-02 00:00 | Contusion of back | [facility] | + + + + | 2022-12-02 00:00 | Contusion of back | [facility] | + + + + | 2022-12-19 00:00 | Acute on chronic | [facility] | | | congestive heart failure | | + + + + | 2022-12-19 00:00 | Urinary tract infection | [facility] | + + + + Procedures No information. Results/Labs +--------+--------+ +---------+--------+---------+ | test | date | facility | value | unit | notes | +--------+--------+ +---------+--------+---------+ + + | Result panel 1 | + + + + + +-------+ + + | Blood | 2022-09-22 | [facility] | 5.5 | (missing) | (missing) | | leukocytes | 16:00 | [facility] | | | | | count | | | | | | | (number/volu | | | | | | | me) | | | | | | + + + +-------+ + + + + | Result panel 2 | + + + + + +--------+ + + | Blood | 2022-09-22 | [facility] | 4.70 | (missing) | (missing) | | erythrocytes | 16:00 | [facility] | | | | | count | | | | | | | (number/volu | | | | | | | me) | | | | | | + + + +--------+ + + + + | Result panel 3 | + + + + + +--------+ + + | Blood | 2022-09-22 | [facility] | 13.5 | (missing) | (missing) | | hemoglobin | 16:00 | [facility] measurement [facility] | | | | | (mass/volume | | | | | | | ) | | | | | | + + + +--------+ + + + + | Result panel 4 | + + + + + +--------+ + + | Automated | 2022-09-22 | [facility] | 42.5 | (missing) | (missing) | | blood | 16:00 | [facility] | | hematocrit [facility] | | | | + + + +--------+ + + + + | Result panel 5 | + + + + + +--------+ + + | Automated | 2022-09-22 | [facility] | 90.5 | (missing) | (missing) | | erythrocyte | 16:00 | [facility] | | | mean | [facility] | | | | | corpuscular | | | | | | | volume | | | | | | + + + +--------+ + + + + | Result panel 6 | + + + + + +--------+ + + | Automated | 2022-09-22 | [facility] | 28.8 | (missing) | (missing) | | erythrocyte | 16:00 | [facility] | | | mean | [facility] | | | | | corpuscular | | | | | | | hemoglobin | | | | | | | (mass per | | | | | | | erythrocyte) | | | | | | | | | | | | | + + + +--------+ + + + + | Result panel 7 | + + + + + +--------+ + + | Automated | 2022-09-22 | [facility] | 31.8 | (missing) | (missing) | | erythrocyte | 16:00 | [facility] | | | | mean | | [facility] | | | | | corpuscular | | | | | | | hemoglobin | | | | | | | concentratio | | | | | | | n | | | | | | | measurement | | | | | | | (mass/volume | | | | | | | ) | | | | | | + + + +--------+ + + + + | Result panel 8 | + + + + + +--------+ + + | Automated | 2022-09-22 | [facility] | 16.4 | (missing) | (missing) | | erythrocyte | 16:00 | [facility] | | [facility] distribution [facility] | | | | | width | | | | | | + + + +--------+ + + + + | Result panel 9 | + + + + + +-------+ + + | Automated | 2022-09-22 | [facility] | 183 | (missing) | (missing) | | blood | 16:00 | [facility] | | | platelet | [facility] | | | | | count | | | | | | | (count/volum | | | | | | | e) | | | | | | + + + +-------+ + + + + | Result panel 10 | + + + + + +--------+ + + | Automated | 2022-09-22 | [facility] | 68.6 | (missing) | (missing) | | blood | 16:00 | [facility] | | | neutrophil | [facility] | | | | | count as | | | | | | | percentage | | | | | | | of total | | | | | | | leukocytes | | | | | | + + + +--------+ + + + + | Result panel 11 | + + + + + +--------+ + + | Automated | 2022-09-22 | [facility] | 15.2 | (missing) | (missing) | | blood | 16:00 | [facility] | | | lymphocyte | [facility] | | | | | count as | | | | | | | percentage | | | | | | | ot total | | | | | | | leukocytes | | | | | | + + + +--------+ + + + + | Result panel 12 | + + + + + +--------+ + + | Automated | 2022-09-22 | [facility] | 11.3 | (missing) | (missing) | | blood | 16:00 | [facility] | | | monocyte | [facility] | | | | | count as | | | | | | | percentage | | | | | | | of total | | | | | | | leukocytes | | | | | | + + + +--------+ + + + + | Result panel 13 | + + + + + +-------+ + + | Automated | 2022-09-22 | [facility] | 4.0 | (missing) | (missing) | | blood | 16:00 | [facility] | | | | eosinophil | | [facility] | | | | | count as | | | | | | | percentage | | | | | | | of total | | | | | | | leukocytes | | | | | | + + + +-------+ + + + + | Result panel 14 | + + + + + +-------+ + + | Automated | 2022-09-22 | [facility] | 0.9 | (missing) | (missing) | | blood | 16:00 | [facility] | | | basophil | | [facility] | | | | | count as | | | | | | | percentage | | | | | | | of total | | | | | | | leukocytes | | | | | | + + + +-------+ + + + + | Result panel 15 | + + + + + +-------+ + + | | 2022-09-22 | [facility] | 5.5 | (missing) | (missing) | | (unavailable | 16:00:08 [facility] | | | | + + + +-------+ + + + + | Result panel 16 | + + + + + +--------+ + + | | 2022-09-22 | [facility] | 4.70 | (missing) | (missing) | | (unavailable | 16:00:08 [facility] | | | | + + + +--------+ + + + + | Result panel 17 | + + + + + +--------+ + + | | 2022-09-22 | [facility] | 13.5 | (missing) | (missing) | | (unavailable | 16:00:08 [facility] | | | | + + + +--------+ + + + + | Result panel 18 | + + + + + +--------+ + + | | 2022-09-22 | [facility] | 42.5 | (missing) | (missing) | | (unavailable | 16:00:08 [facility] | | | | + + + +--------+ + + + + | Result panel 19 | + + + + + +--------+ + + | | 2022-09-22 | [facility] | 90.5 | (missing) | (missing) | | (unavailable | 16::08 | [facility] | | | | + + + +--------+ + + + + | Result panel 20 | + + + + + +--------+ + + | | 2022-09-22 | [facility] | 28.8 | (missing) | (missing) | | (unavailable | 16:00:08 [facility] | | | | + + + +--------+ + + + + | Result panel 21 | + + + + + +--------+ + + | | 2022-09-22 | [facility] | 31.8 | (missing) | (missing) | | (unavailable | :: | [facility] | | | | + + + +--------+ + + + + | Result panel 22 | + + + + + +--------+ + + | | 2022-09-22 | [facility] | 16.4 | (missing) | (missing) | | (unavailable | 16:00:08 [facility] | | | | + + + +--------+ + + + + | Result panel 23 | + + + + + +-------+ + + | | 2022-09-22 | [facility] | 183 | (missing) | (missing) | | (unavailable | 16:00:08 [facility] | | | | + + + +-------+ + + + + | Result panel 24 | + + + + + +--------+ + + | | 2022-09-22 | [facility] | 68.6 | (missing) | (missing) | | (unavailable | 16:00:08 [facility] | | | | + + + +--------+ + + + + | Result panel 25 | + + + + + +--------+ + + | | 2022-09-22 | [facility] | 15.2 | (missing) | (missing) | | (unavailable | 16:00:08 [facility] | | | | + + + +--------+ + + + + | Result panel 26 | + + + + + +--------+ + + | | 2022-09-22 | [facility] | 11.3 | (missing) | (missing) | | (unavailable | 16:00:08 [facility] | | | | + + + +--------+ + + + + | Result panel 27 | + + + + + +-------+ + + | | 2022-09-22 | [facility] | 4.0 | (missing) | (missing) | | (unavailable | 16:00:08 [facility] | | | | + + + +-------+ + + + + | Result panel 28 | + + + + + +-------+ + + | | 2022-09-22 | [facility] | 0.9 | (missing) | (missing) | | (unavailable | 16:00:08 [facility] | | | | + + + +-------+ + + + + | Result panel 29 | + + + + + +-------+ + + | | 2022-09-22 | [facility] | 5.5 | (missing) | (missing) | | (unavailable | 16:00:08 [facility] | | | | + + + +-------+ + + + + | Result panel 30 | + + + + + +--------+ + + | | 2022-09-22 | [facility] | 4.70 | (missing) | (missing) | | (unavailable | 16:00:08 [facility] | | | | + + + +--------+ + + + + | Result panel 31 | + + + + + +--------+ + + | | 2022-09-22 | [facility] | 13.5 | (missing) | (missing) | | (unavailable | 16::08 | [facility] | | | | + + + +--------+ + + + + | Result panel 32 | + + + + + +--------+ + + | | 2022-09-22 | [facility] | 42.5 | (missing) | (missing) | | (unavailable | 16:00:08 [facility] | | | | + + + +--------+ + + + + | Result panel 33 | + + + + + +--------+ + + | | 2022-09-22 | [facility] | 90.5 | (missing) | (missing) | | (unavailable | 16:00:08 | [facility] | | | | + + + +--------+ + + + + | Result panel 34 | + + + + + +--------+ + + | | 2022-09-22 | [facility] | 28.8 | (missing) | (missing) | | (unavailable | 16:00:08 [facility] | | | | + + + +--------+ + + + + | Result panel 35 | + + + + + +--------+ + + | | 2022-09-22 | [facility] | 31.8 | (missing) | (missing) | | (unavailable | 16:00:08 [facility] | | | | + + + +--------+ + + + + | Result panel 36 | + + + + + +--------+ + + | | 2022-09-22 | [facility] | 16.4 | (missing) | (missing) | | (unavailable | 16:00:08 [facility] | | | | + + + +--------+ + + + + | Result panel 37 | + + + + + +-------+ + + | | 2022-09-22 | [facility] | 183 | (missing) | (missing) | | (unavailable | 16:00:08 | [facility] | | | | + + + +-------+ + + + + | Result panel 38 | + + + + + +--------+ + + | | 2022-09-22 | [facility] | 68.6 | (missing) | (missing) | | (unavailable | 16:00:08 | [facility] | | | | + + + +--------+ + + + + | Result panel 39 | + + + + + +--------+ + + | | 2022-09-22 | [facility] | 15.2 | (missing) | (missing) | | (unavailable | 16:00:08 | [facility] | | | | + + + +--------+ + + + + | Result panel 40 | + + + + + +--------+ + + | | 2022-09-22 | [facility] | 11.3 | (missing) | (missing) | | (unavailable | 16:00:08 | [facility] | | | | + + + +--------+ + + + + | Result panel 41 | + + + + + +-------+ + + | | 2022-09-22 | [facility] | 4.0 | (missing) | (missing) | | (unavailable | 16:00:08 | [facility] | | | | + + + +-------+ + + + + | Result panel 42 | + + + + + +-------+ + + | | 2022-09-22 | [facility] | 0.9 | (missing) | (missing) | | (unavailable | 16:00:08 | [facility] | | | | + + + +-------+ + + + + | Result panel 43 | + + + + + +-------+ + + | Serum or | 2022-09-22 | [facility] | 160 | (missing) | (missing) | | plasma | 17:25 | [facility] glucose [facility] | | | | | measurement | | | | | | | (mass/volume | | | | | | | ) | | | | | | + + + +-------+ + + + + | Result panel 44 | + + + + + +------+ + + | Serum or | 2022-09-22 | [facility] | 28 | (missing) | (missing) | | plasma urea | 17:25 | [facility] nitrogen [facility] | | | | | measurement | | | | | | | (mass/volume | | | | | | | ) | | | | | | + + + +------+ + + + + | Result panel 45 | + + + + + +--------+ + + | Serum or | 2022-09-22 | [facility] | 1.11 | (missing) | (missing) | | plasma | 17:25 | [facility] creatinine [facility] | | | | | measurement | | | | | | | (mass/volume | | | | | | | ) | | | | | | + + + +--------+ + + + + | Result panel 46 | + + + + + +------+ + + | Glomerular | 2022-09-22 | [facility] | 48 | (missing) | (missing) | | filtration | 17:25 | [facility] | | | | rate/1.73 sq | | Hospital | | | | | M.predicted | | | | | | | [Volume | | | | | | | Rate/Area] | | | | | | | inSerum, | | | | | | | Plasma or | | | | | | | Blood by | | | | | | | Creatinine-b | | | | | | | ased formula | | | | | | | (CKD-EPI | | | | | | | 2020) | | | | | | + + + +------+ + + + + | Result panel 47 | + + + + + +---------+ + + | Serum or | 2022-09-22 | [facility] | 25.22 | (missing) | (missing) | | plasma urea | 17:25 | [facility] | | | | nitrogen/cre | | [facility] | | | | | atinine mass | | | | | | | ratio | | | | | | + + + +---------+ + + + + | Result panel 48 | + + + + + +-------+ + + | Serum or | 2022-09-22 | [facility] | 138 | (missing) | (missing) | | plasma | 17:25 | [facility] sodium | | [facility] | | | | | measurement | | | | | | | (moles/volum | | | | | | | e) | | | | | | + + + +-------+ + + + + | Result panel 49 | + + + + + +-------+ + + | Serum or | 2022-09-22 | [facility] | 3.6 | (missing) | (missing) | | plasma | 17:25 | [facility] potassium [facility] | | | | | measurement | | | | | | | (moles/volum | | | | | | | e) | | | | | | + + + +-------+ + + + + | Result panel 50 | + + + + + +-------+ + + | Serum or | 2022-09-22 | [facility] | 102 | (missing) | (missing) | | plasma | 17:25 | [facility] | | [facility] chloride | | [facility] | | | | | measurement | | | | | | | (moles/volum | | | | | | | e) | | | | | | + + + +-------+ + + + + | Result panel 51 | + + + + + +------+ + + | Serum or | 2022-09-22 | [facility] | 31 | (missing) | (missing) | | plasma | 17:25 | [facility] | | | | carbon | | [facility] | | | | | dioxide, | | | | | | | total | | | | | | | measurement | | | | | | | (moles/volum | | | | | | | e) | | | | | | + + + +------+ + + + + | Result panel 52 | + + + + + +-------+ + + | Serum or | 2022-09-22 | [facility] | 8.6 | (missing) | (missing) | | plasma anion | 17:25 | [facility] | gap 4 | [facility] | | | | + + + +-------+ + + + + | Result panel 53 | + + + + + +-------+ + + | Serum or | 2022-09-22 | [facility] | 9.7 | (missing) | (missing) | | plasma | 17:25 | [facility] calcium | [facility] | | | | | measurement | | | | | | | (mass/volume | | | | | | | ) | | | | | | + + + +-------+ + + + + | Result panel 54 | + + + + + +-------+ + + | Serum or | 2022-09-22 | [facility] | 7.3 | (missing) | (missing) | | plasma | 17:25 | [facility] protein [facility] | | | | | measurement | | | | | | | (mass/volume | | | | | | | ) | | | | | | + + + +-------+ + + + + | Result panel 55 | + + + + + +-------+ + + | Serum or | 2022-09-22 | [facility] | 3.1 | (missing) | (missing) | | plasma | 17:25 | [facility] albumin | [facility] | | | | | measurement | | | | | | | (mass/volume | | | | | | | ) | | | | | | + + + +-------+ + + + + | Result panel 56 | + + + + + +-------+ + + | Serum | 2022-09-22 | [facility] | 4.2 | (missing) | (missing) | | globulin | 17:25 | [facility] measurement | | [facility] | | | | | (mass/volume | | | | | | | ) | | | | | | + + + +-------+ + + + + | Result panel 57 | + + + + + +--------+ + + | Serum or | 2022-09-22 | [facility] | 0.74 | (missing) | (missing) | | plasma | 17:25 | [facility] | | | | albumin/glob | | [facility] | | | | | ulin mass | | | | | | | ratio | | | | | | + + + +--------+ + + + + | Result panel 58 | + + + + + +-------+ + + | Serum or | 2022-09-22 | [facility] | 0.5 | (missing) | (missing) | | plasma total | 17:25 | [facility] | | | | bilirubin | | [facility] | | | | | measurement | | | | | | | (mass/volume | | | | | | | ) | | | | | | + + + +-------+ + + + + | Result panel 59 | + + + + + +------+ + + | Serum or | 2022-09-22 | [facility] | 22 | (missing) | (missing) | | plasma | 17:25 | [facility] | | | | aspartate | | [facility] | | | | | aminotransfe | | | | | | | rase | | | | | | | measurement | | | | | | | (enzymatic | | | | | | | activity/vol | | | | | | | ume) | | | | | | + + + +------+ + + + + | Result panel 60 | + + + + + +------+ + + | Serum or | 2022-09-22 | [facility] | 21 | (missing) | (missing) | | plasma | 17:25 | [facility] | | | | alanine | | [facility] | | | | | aminotransfe | | | | | | | rase | | | | | | | measurement | | | | | | | (enzymatic | | | | | | | activity/vol | | | | | | | ume) | | | | | | + + + +------+ + + + + | Result panel 61 | + + + + + +-------+ + + | Serum or | 2022-09-22 | [facility] | 121 | (missing) | (missing) | | plasma | 17:25 | [facility] | | | | alkaline | | [facility] | | | | | phosphatase | | | | | | | measurement | | | | | | | (enzymatic | | | | | | | activity/vol | | | | | | | ume) | | | | | | + + + +-------+ + + + + | Result panel 62 | + + + + + +------+ + + | Serum or | 2022-09-22 | [facility] | 56 | (missing) | (missing) | | plasma | 17:25 | [facility] | | | | amylase | | [facility] | | | | | measurement | | | | | | + + + +------+ + + + + | Result panel 63 | + + + + + +-------+ + + | Serum or | 2022-09-22 | [facility] | 163 | (missing) | (missing) | | plasma | 17:25 | [facility] | | | | lipase | | [facility] | | | | | measurement | | | | | | | (enzymatic | | | | | | | activity/vol | | | | | | | ume) | | | | | | + + + +-------+ + + + + | Result panel 64 | + + + + + +------+ + + | Serum or | 2022-09-22 | [facility] | 66 | (missing) | (missing) | | plasma | 17:25 | [facility] | | | | creatine | | [facility] | | | | | kinase | | | | | | | measurement | | | | | | | (enzymatic | | | | | | | activity/vol | | | | | | | ume) | | | | | | + + + +------+ + + + + | Result panel 65 | + + + + + +-------+ + + | | 2022-09-22 | [facility] | 8.6 | (missing) | (missing) | | (unavailable | 17::08 | [facility] | | | | + + + +-------+ + + + + | Result panel 66 | + + + + + +-------+---------+ + | | 2022-09-22 | [facility] | 9.7 | mg/dL | (missing) | | (unavailable | 17::08 | [facility] | | | | + + + +-------+---------+ + + + | Result panel 67 | + + + + + +-------+ + + | | 2022-09-22 | [facility] | 7.3 | (missing) | (missing) | | (unavailable | 17::08 | [facility] | | | | + + + +-------+ + + + + | Result panel 68 | + + + + + +-------+ + + | | 2022-09-22 | [facility] | 3.1 | (missing) | (missing) | | (unavailable | ::08 | [facility] | | | | + + + +-------+ + + + + | Result panel 69 | + + + + + +-------+ + + | | 2022-09-22 | [facility] | 4.2 | (missing) | (missing) | | (unavailable | 17::08 | [facility] | | | | + + + +-------+ + + + + | Result panel 70 | + + + + + +--------+ + + | | 2022-09-22 | [facility] | 0.74 | (missing) | (missing) | | (unavailable | 17:25:08 | [facility] | | | | + + + +--------+ + + + + | Result panel 71 | + + + + + +-------+ + + | | 2022-09-22 | [facility] | 0.5 | (missing) | (missing) | | (unavailable | 17:25:08 [facility] | | | | + + + +-------+ + + + + | Result panel 72 | + + + + + +------+ + + | | 2022-09-22 | [facility] | 22 | (missing) | (missing) | | (unavailable | 17:25:08 [facility] | | | | + + + +------+ + + + + | Result panel 73 | + + + + + +------+ + + | | 2022-09-22 | [facility] | 21 | (missing) | (missing) | | (unavailable | 17:25:08 [facility] | | | | + + + +------+ + + + + | Result panel 74 | + + + + + +-------+ + + | | 2022-09-22 | [facility] | 121 | (missing) | (missing) | | (unavailable | 17:25:08 [facility] | | | | + + + +-------+ + + + + | Result panel 75 | + + + + + +------+ + + | | 2022-09-22 | [facility] | 56 | (missing) | (missing) | | (unavailable | 17:25:08 [facility] | | | | + + + +------+ + + + + | Result panel 76 | + + + + + +-------+ + + | | 2022-09-22 | [facility] | 163 | (missing) | (missing) | | (unavailable | 17:25:08 [facility] | | | | + + + +-------+ + + + + | Result panel 77 | + + + + + +------+ + + | | 2022-09-22 | [facility] | 66 | (missing) | (missing) | | (unavailable | 17:25:08 [facility] | | | | + + + +------+ + + + + | Result panel 78 | + + + + + +-------+---------+ + | | 2022-09-22 | [facility] | 160 | mg/dL | (missing) | | (unavailable | 17:25:08 [facility] | | | | + + + +-------+---------+ + + + | Result panel 79 | + + + + + +------+---------+ + | | 2022-09-22 | [facility] | 28 | mg/dL | (missing) | | (unavailable | 17:25:08 [facility] | | | | + + + +------+---------+ + + + | Result panel 80 | + + + + + +--------+---------+ + | | 2022-09-22 | [facility] | 1.11 | mg/dL | (missing) | | (unavailable | 17:25:08 [facility] | | | | + + + +--------+---------+ + + + | Result panel 81 | + + + + + +------+ + + | | 2022-09-22 | [facility] | 48 | (missing) | (missing) | | (unavailable | 17:25:08 [facility] | | | | + + + +------+ + + + + | Result panel 82 | + + + + + +---------+ + + | | 2022-09-22 | [facility] | 25.22 | (missing) | (missing) | | (unavailable | 17:25:08 [facility] | | | | + + + +---------+ + + + + | Result panel 83 | + + + + + +-------+ + + | | 2022-09-22 | [facility] | 138 | (missing) | (missing) | | (unavailable | 17:25:08 [facility] | | | | + + + +-------+ + + + + | Result panel 84 | + + + + + +-------+ + + | | 2022-09-22 | [facility] | 3.6 | (missing) | (missing) | | (unavailable | 17:25:08 [facility] | | | | + + + +-------+ + + + + | Result panel 85 | + + + + + +-------+ + + | | 2022-09-22 | [facility] | 102 | (missing) | (missing) | | (unavailable | 17:25:08 [facility] | | | | + + + +-------+ + + + + | Result panel 86 | + + + + + +------+ + + | | 2022-09-22 | [facility] | 31 | (missing) | (missing) | | (unavailable | 17:25:08 [facility] | | | | + + + +------+ + + + + | Result panel 87 | + + + + + +-------+ + + | | 2022-09-22 | [facility] | 8.6 | (missing) | (missing) | | (unavailable | 17::08 | [facility] | | | | + + + +-------+ + + + + | Result panel 88 | + + + + + +-------+---------+ + | | 2022-09-22 | [facility] | 9.7 | mg/dL | (missing) | | (unavailable | 17:08 | [facility] | | | | + + + +-------+---------+ + + + | Result panel 89 | + + + + + +-------+ + + | | 2022-09-22 | [facility] | 7.3 | (missing) | (missing) | | (unavailable | 17:25:08 [facility] | | | | + + + +-------+ + + + + | Result panel 90 | + + + + + +-------+ + + | | 2022-09-22 | [facility] | 3.1 | (missing) | (missing) | | (unavailable | 17:25:08 [facility] | | | | + + + +-------+ + + + + | Result panel 91 | + + + + + +-------+ + + | | 2022-09-22 | [facility] | 4.2 | (missing) | (missing) | | (unavailable | 17:25:08 [facility] | | | | + + + +-------+ + + + + | Result panel 92 | + + + + + +--------+ + + | | 2022-09-22 | [facility] | 0.74 | (missing) | (missing) | | (unavailable | 17::08 | [facility] | | | | + + + +--------+ + + + + | Result panel 93 | + + + + + +-------+ + + | | 2022-09-22 | [facility] | 0.5 | (missing) | (missing) | | (unavailable | 17:25:08 [facility] | | | | + + + +-------+ + + + + | Result panel 94 | + + + + + +------+ + + | | 2022-09-22 | [facility] | 22 | (missing) | (missing) | | (unavailable | 17:25:08 [facility] | | | | + + + +------+ + + + + | Result panel 95 | + + + + + +------+ + + | | 2022-09-22 | [facility] | 21 | (missing) | (missing) | | (unavailable | 17:25:08 [facility] | | | | + + + +------+ + + + + | Result panel 96 | + + + + + +-------+ + + | | 2022-09-22 | [facility] | 121 | (missing) | (missing) | | (unavailable | 17:25:08 [facility] | | | | + + + +-------+ + + + + | Result panel 97 | + + + + + +------+ + + | | 2022-09-22 | [facility] | 56 | (missing) | (missing) | | (unavailable | 17:25:08 [facility] | | | | + + + +------+ + + + + | Result panel 98 | + + + + + +-------+ + + | | 2022-09-22 | [facility] | 163 | (missing) | (missing) | | (unavailable | 17:25:08 [facility] | | | | + + + +-------+ + + + + | Result panel 99 | + + + + + +------+ + + | | 2022-09-22 | [facility] | 66 | (missing) | (missing) | | (unavailable | 17:25:08 [facility] | | | | + + + +------+ + + + + | Result panel 100 | + + + + + +-------+---------+ + | | 2022-09-22 | [facility] | 160 | mg/dL | (missing) | | (unavailable | 17:25:08 [facility] | | | | + + + +-------+---------+ + + + | Result panel 101 | + + + + + +------+---------+ + | | 2022-09-22 | [facility] | 28 | mg/dL | (missing) | | (unavailable | 17:25:08 [facility] | | | | + + + +------+---------+ + + + | Result panel 102 | + + + + + +--------+---------+ + | | 2022-09-22 | [facility] | 1.11 | mg/dL | (missing) | | (unavailable | 17:25:08 [facility] | | | | + + + +--------+---------+ + + + | Result panel 103 | + + + + + +------+ + + | | 2022-09-22 | [facility] | 48 | (missing) | (missing) | | (unavailable | 17:25:08 [facility] | | | | + + + +------+ + + + + | Result panel 104 | + + + + + +---------+ + + | | 2022-09-22 | [facility] | 25.22 | (missing) | (missing) | | (unavailable | 17:25:08 [facility] | | | | + + + +---------+ + + + + | Result panel 105 | + + + + + +-------+ + + | | 2022-09-22 | [facility] | 138 | (missing) | (missing) | | (unavailable | 17:25:08 [facility] | | | | + + + +-------+ + + + + | Result panel 106 | + + + + + +-------+ + + | | 2022-09-22 | [facility] | 3.6 | (missing) | (missing) | | (unavailable | 17:25:08 [facility] | | | | + + + +-------+ + + + + | Result panel 107 | + + + + + +-------+ + + | | 2022-09-22 | [facility] | 102 | (missing) | (missing) | | (unavailable | 17:25:08 [facility] | | | | + + + +-------+ + + + + | Result panel 108 | + + + + + +------+ + + | | 2022-09-22 | [facility] | 31 | (missing) | (missing) | | (unavailable | 17:25:08 [facility] | | | | + + + +------+ + + + + | Result panel 109 | + + + + + +-------+ + + | Serum or | 2022-09-22 | [facility] | 2.1 | (missing) | (missing) | | plasma | 17:29 | [facility] | | | | lactate | | [facility] | | | | | measurement | | | | | | | (moles/volum | | | | | | | e) | | | | | | + + + +-------+ + + + + | Result panel 110 | + + + + + +-------+ + + | | 2022-09-22 | [facility] | 2.1 | (missing) | (missing) | | (unavailable | 17:29:08 [facility] | | | | + + + +-------+ + + + + | Result panel 111 | + + + + + +-------+ + + | | 2022-09-22 | [facility] | 2.1 | (missing) | (missing) | | (unavailable | 17:29:08 [facility] | | | | + + + +-------+ + + + + | Result panel 112 | + + + + + +------+ + + | | 2022-12-19 | [facility] | <3 | (missing) | (missing) | | (unavailable | 15:15:08 | [facility] | | | | + + + +------+ + + + + | Result panel 113 | + + + + + + + + + | | 2022-12-19 | [facility] | SEE | (missing) | (missing) | | (unavailable | 15:15:08 | [facility] COM[facility] | | | [facility] | | [facility] | | | | + + + + + + + + + | Result panel 114 | + + + + + + + + + | | 2022-12-19 | [facility] | NEGATIVE | (missing) | (missing) | | (unavailable | 16:18:08 | [facility] | | | | + + + + + + + + + | Result panel 115 | + + + + + + + + + | | 2022-12-19 | [facility] | NEGATIVE | (missing) | (missing) | | (unavailable | 16:18:08 [facility] | | | | + + + + + + + + + | Result panel 116 | + + + + + + + + + | | 2022-12-19 | [facility] | NEGATIVE | (missing) | (missing) | | (unavailable | 16:18:08 | [facility] | | | | + + + + + + + + + | Result panel 117 | + + + + + + + + + | | 2022-12-19 | [facility] | NEGATIVE | (missing) | (missing) | | (unavailable | 16:18:08 | [facility] | | | | + + + + + + + + + | Result panel 118 | + + + + + + + + + | | 2022-12-19 | [facility] | NEGATIVE | (missing) | (missing) | | (unavailable | 16:30:08 | [facility] | | | | + + + + + + + + + | Result panel 119 | + + + + + +-------+ + + | | 2022-12-19 | [facility] | 5.5 | (missing) | (missing) | | (unavailable | 16:30:08 | [facility] | | | | + + + +-------+ + + + + | Result panel 120 | + + + + + + + + + | | 2022-12-19 | [facility] | NEGATIVE | (missing) | (missing) | | (unavailable | 16:30:08 [facility] | | | | + + + + + + + + + | Result panel 121 | + + + + + + + + + | | 2022-12-19 | [facility] | NORMAL | (missing) | (missing) | | (unavailable | 16:30:08 [facility] | | | | + + + + + + + + + | Result panel 122 | + + + + + + + + + | | 2022-12-19 | [facility] | POSITIVE | (missing) | (missing) | | (unavailable | 16:30:08 | [facility] | | | | + + + + + + + + + | Result panel 123 | + + + + + + + + + | | 2022-12-19 | [facility] | NEGATIVE | (missing) | (missing) | | (unavailable | 16:30:08 [facility] | | | | + + + + + + + + + | Result panel 124 | + + + + + +-------+ + + | | 2022-12-19 | [facility] | 4-6 | (missing) | (missing) | | (unavailable | 16:30:08 [facility] | | | | + + + +-------+ + + + + | Result panel 125 | + + + + + +-------+ + + | | 2022-12-19 | [facility] | 4-6 | (missing) | (missing) | | (unavailable | 16:30:08 [facility] | | | | + + + +-------+ + + + + | Result panel 126 | + + + + + + + + + | | 2022-12-19 | [facility] | SQUAMOUS 1+ | (missing) | (missing) | | (unavailable | 16:30:08 | [facility] | | | | + + + + + + + + + | Result panel 127 | + + + + + + + + + | | 2022-12-19 | [facility] | NONE SEEN | (missing) | (missing) | | (unavailable | 16:30:08 [facility] | | | | + + + + + + + + + | Result panel 128 | + + + + + +------+ + + | | 2022-12-19 | [facility] | 2+ | (missing) | (missing) | | (unavailable | 16:30:08 [facility] | | | | + + + +------+ + + + + | Result panel 129 | + + + + + + + + + | | 2022-12-19 | [facility] | NONE SEEN | (missing) | (missing) | | (unavailable | 16:30:08 [facility] | | | | + + + + + + + + + | Result panel 130 | + + + + + +-------+ + + | | 2022-12-19 | [facility] | Yes | (missing) | (missing) | | (unavailable | 16:30:08 [facility] | | | | + + + +-------+ + + + + | Result panel 131 | + + + + + + + + + | | 2022-12-19 | [facility] | CLEAN CATCH | (missing) | (missing) | | (unavailable | 16:30:08 [facility] | | | | + + + + + + + + + | Result panel 132 | + + + + + + + + + | | 2022-12-19 | [facility] | NEGATIVE | (missing) | (missing) | | (unavailable | 16:30:08 [facility] | | | | + + + + + + + + + | Result panel 133 | + + + + + + + + + | | 2022-12-19 | [facility] | NEGATIVE | (missing) | (missing) | | (unavailable | 16:30:08 [facility] | | | | + + + + + + + + + | Result panel 134 | + + + + + + + + + | | 2022-12-19 | [facility] | NEGATIVE | (missing) | (missing) | | (unavailable | 16:30:08 [facility] | | | | + + + + + + + + + | Result panel 135 | + + + + + + + + + | | 2022-12-19 | [facility] | NEGATIVE | (missing) | (missing) | | (unavailable | 16:30:08 [facility] | | | | + + + + + + + + + | Result panel 136 | + + + + + + + + + | | 2022-12-19 | [facility] | NEGATIVE | (missing) | (missing) | | (unavailable | 16:30:08 [facility] | | | | + + + + + + + + + | Result panel 137 | + + + + + + + + + | | 2022-12-19 | [facility] | NEGATIVE | (missing) | (missing) | | (unavailable | 16:30:08 [facility] | | | | + + + + + + + + + | Result panel 138 | + + + + + + + + + | | 2022-12-19 | [facility] | NEGATIVE | (missing) | (missing) | | (unavailable | 16:30:08 [facility] | | | | + + + + + + + + + | Result panel 139 | + + + + + + + + + | | 2022-12-19 | [facility] | NEGATIVE | (missing) | (missing) | | (unavailable | 16:30:08 [facility] | | | | + + + + + + + + + | Result panel 140 | + + + + + + + + + | | 2022-12-19 | [facility] | NEGATIVE | (missing) | (missing) | | (unavailable | 16:30:08 [facility] | | | | + + + + + + + + + | Result panel 141 | + + + + + + + + + | | 2022-12-19 | [facility] | NEGATIVE | (missing) | (missing) | | (unavailable | 16:30:08 [facility] | | | | + + + + + + + + + | Result panel 142 | + + + + + + + + + | | 2022-12-19 | [facility] | NEGATIVE | (missing) | (missing) | | (unavailable | 16:30:08 [facility] | | | | + + + + + + + + + | Result panel 143 | + + + + + + + + + | | 2022-12-19 | [facility] | NEGATIVE | (missing) | (missing) | | (unavailable | 16:30:08 [facility] | | | | + + + + + + + + + | Result panel 144 | + + + + + + + + + | | 2022-12-19 | [facility] | NEGATIVE | (missing) | (missing) | | (unavailable | 16:30:08 [facility] | | | | + + + + + + + + + | Result panel 145 | + + + + + + + + + | | 2022-12-19 | [facility] | YELLOW | (missing) | (missing) | | (unavailable | 16:30:08 [facility] | | | | + + + + + + + + + | Result panel 146 | + + + + + +---------+ + + | | 2022-12-19 | [facility] | CLEAR | (missing) | (missing) | | (unavailable | 16:30:08 [facility] | | | | + + + +---------+ + + + + | Result panel 147 | + + + + + + + + + | | 2022-12-19 | [facility] | NEGATIVE | (missing) | (missing) | | (unavailable | 16:30:08 [facility] | | | | + + + + + + + + + | Result panel 148 | + + + + + + + + + | | 2022-12-19 | [facility] | NEGATIVE | (missing) | (missing) | | (unavailable | 16:30:08 [facility] | | | | + + + + + + + + + | Result panel 149 | + + + + + + + + + | | 2022-12-19 | [facility] | NEGATIVE | (missing) | (missing) | | (unavailable | 16:30:08 [facility] | | | | + + + + + + + + + | Result panel 150 | + + + + + +---------+ + + | | 2022-12-19 | [facility] | 1.025 | (missing) | (missing) | | (unavailable | 16:30:08 [facility] | | | | + + + +---------+ + + + + | Result panel 151 | + + + + + +-------+---------+ + | | 2022-12-20 | [facility] | 3.5 | mg/dL | (missing) | | (unavailable | 05:20:08 | [facility] | | | | + + + +-------+---------+ + + + | Result panel 152 | + + + + + +-------+---------+ + | | 2022-12-20 | [facility] | 2.0 | mg/dL | (missing) | | (unavailable | 05:20:08 | [facility] | | | | + + + +-------+---------+ + + + | Result panel 153 | + + + + + +-------+ + + | | 2022-12-22 | [facility] | 4.0 | (missing) | (missing) | | (unavailable | 05:07:08 [facility] | | | | + + + +-------+ + + + + | Result panel 154 | + + + + + +--------+ + + | | 2022-12-22 | [facility] | 4.32 | (missing) | (missing) | | (unavailable | 05:07:08 [facility] | | | | + + + +--------+ + + + + | Result panel 155 | + + + + + +--------+ + + | | 2022-12-22 | [facility] | 12.4 | (missing) | (missing) | | (unavailable | 05:07:08 | [facility] [facility] | [facility] | | | | + + + +--------+ + + + + | Result panel 156 | + + + + + +--------+ + + | | 2022-12-22 | [facility] | 39.1 | (missing) | (missing) | | (unavailable | 05:07:08 [facility] | | | | + + + +--------+ + + + + | Result panel 157 | + + + + + +--------+ + + | | 2022-12-22 | [facility] | 90.6 | (missing) | (missing) | | (unavailable | 05:07:08 [facility] | | | | + + + +--------+ + + + + | Result panel 158 | + + + + + +--------+ + + | | 2022-12-22 | [facility] | 28.7 | (missing) | (missing) | | (unavailable | 05:07:08 [facility] | | | + + + +--------+ + + + + | Result panel 159 | + + + + + +--------+ + + | | 2022-12-22 | [facility] | 31.7 | (missing) | (missing) | | (unavailable | 05:07:08 [facility] | | | + + + +--------+ + + + + | Result panel 160 | + + + + + +--------+ + + | | 2022-12-22 | [facility] | 17.8 | (missing) | (missing) | | (unavailable | 05:07:08 [facility] | | | + + + +--------+ + + + + | Result panel 161 | + + + + + +-------+ + + | | 2022-12-22 | [facility] | 106 | (missing) | (missing) | | (unavailable | 05:07:08 [facility] | | | + + + +-------+ + + + + | Result panel 162 | + + + + + +--------+ + + | | 2022-12-22 | [facility] | 60.7 | (missing) | (missing) | | (unavailable | 05:07:08 [facility] | | | + + + +--------+ + + + + | Result panel 163 | + + + + + +--------+ + + | | 2022-12-22 | [facility] | 18.9 | (missing) | (missing) | | (unavailable | 05:07:08 [facility] | | | + + + +--------+ + + + + | Result panel 164 | + + + + + +--------+ + + | | 2022-12-22 | [facility] | 12.7 | (missing) | (missing) | | (unavailable | 05:07:08 [facility] | | | + + + +--------+ + + + + | Result panel 165 | + + + + + +-------+ + + | | 2022-12-22 | [facility] | 6.7 | (missing) | (missing) | | (unavailable | 05:07:08 [facility] | | | + + + +-------+ + + + + | Result panel 166 | + + + + + +-------+ + + | | 2022-12-22 | [facility] | 1.0 | (missing) | (missing) | | (unavailable | 05:07:08 [facility] | | | + + + +-------+ + + + + | Result panel 167 | + + + + + +------+---------+ + | | 2022-12-22 | [facility] | 75 | mg/dL | (missing) | | (unavailable | 05:07:08 [facility] | | | + + + +------+---------+ + + + | Result panel 168 | + + + + + +------+---------+ + | | 2022-12-22 | [facility] | 44 | mg/dL | (missing) | | (unavailable | 05:07:08 [facility] | | | + + + +------+---------+ + + + | Result panel 169 | + + + + + +--------+---------+ + | | 2022-12-22 | [facility] | 1.23 | mg/dL | (missing) | | (unavailable | 05:07:08 [facility] | | | + + + +--------+---------+ + + + | Result panel 170 | + + + + + +------+ + + | | 2022-12-22 | [facility] | 43 | (missing) | (missing) | | (unavailable | 05:07:08 [facility] | | | + + + +------+ + + + + | Result panel 171 | + + + + + +---------+ + + | | 2022-12-22 | [facility] | 35.77 | (missing) | (missing) | | (unavailable | 05:07:08 [facility] | | | + + + +---------+ + + + + | Result panel 172 | + + + + + +-------+ + + | | 2022-12-22 | [facility] | 136 | (missing) | (missing) | | (unavailable | 05:07:08 [facility] | | | + + + +-------+ + + + + | Result panel 173 | + + + + + +-------+ + + | | 2022-12-22 | [facility] | 4.1 | (missing) | (missing) | | (unavailable | 05:07:08 [facility] | | | + + + +-------+ + + + + | Result panel 174 | + + + + + +------+ + + | | 2022-12-22 | [facility] | 99 | (missing) | (missing) | | (unavailable | 05:07:08 [facility] | | | + + + +------+ + + + + | Result panel 175 | + + + + + +------+ + + | | 2022-12-22 | [facility] | 33 | (missing) | (missing) | | (unavailable | 05:07:08 [facility] | | | + + + +------+ + + + + | Result panel 176 | + + + + + +-------+ + + | | 2022-12-22 | [facility] | 8.1 | (missing) | (missing) | | (unavailable | 05:07:08 [facility] | | | + + + +-------+ + + + + | Result panel 177 | + + + + + +-------+---------+ + | | 2022-12-22 | [facility] | 9.3 | mg/dL | (missing) | | (unavailable | 05:07:08 [facility] | | | | + + + +-------+---------+ + + + | Result panel 178 | + + + + + +-------+ + + | | 2022-12-22 | [facility] | 6.7 | (missing) | (missing) | | (unavailable | 05:07:08 [facility] | | | + + + +-------+ + + + + | Result panel 179 | + + + + + +-------+ + + | | 2022-12-22 | [facility] | 2.6 | (missing) | (missing) | | (unavailable | 05:07:08 [facility] | | | + + + +-------+ + + + + | Result panel 180 | + + + + + +-------+ + + | | 2022-12-22 | [facility] | 4.1 | (missing) | (missing) | | (unavailable | 05:07:08 [facility] | | | + + + +-------+ + + + + | Result panel 181 | + + + + + +--------+ + + | | 2022-12-22 | [facility] | 0.63 | (missing) | (missing) | | (unavailable | 05:07:08 [facility] | | | + + + +--------+ + + + + | Result panel 182 | + + + + + +-------+ + + | | 2022-12-22 | [facility] | 0.4 | (missing) | (missing) | | (unavailable | 05:07:08 [facility] | | | + + + +-------+ + + + + | Result panel 183 | + + + + + +------+ + + | | 2022-12-22 | [facility] | 36 | (missing) | (missing) | | (unavailable | 05:07:08 [facility] | | | | + + + +------+ + + + + | Result panel 184 | + + + + + +------+ + + | | 2022-12-22 | [facility] | 34 | (missing) | (missing) | | (unavailable | 05:07:08 [facility] | | | | + + + +------+ + + + + | Result panel 185 | + + + + + +------+ + + | | 2022-12-22 | [facility] | 98 | (missing) | (missing) | | (unavailable | 05:07:08 [facility] | | | | + + + +------+ + + + + | Result panel 186 | + + + + + + + + + | | 2022-12-22 | [facility] | NEGATIVE | (missing) | (missing) | | (unavailable | 12:20:08 | [facility] | | | | + + + + + + + + + | Result panel 187 | + + + + + +-------+ + + | | 2022-12-22 | [facility] | 102 | (missing) | (missing) | | (unavailable | 21:42:08 | [facility] | | | | + + + +-------+ + + + + | Serum or plasma alanine aminotransferase measurement (enzymatic activity/volume) | + + + + + +------+ + + | Serum or | 2022-09-22 | [facility] | 21 | (missing) | (missing) | | plasma | 17:25 | [facility] | | | alanine | | [facility] | | | | | aminotransfe | | | | | | | rase | | | | | | | measurement | | | | | | | (enzymatic | | | | | | | activity/vol | | | | | | | ume) | | | | | | + + + +------+ + + + + | Serum or plasma albumin measurement (mass/volume) | + + + + + +-------+ + + | Serum or | 2022-09-22 | [facility] | 3.1 | (missing) | (missing) | | plasma | 17:25 | [facility] albumin | [facility] | | | | | measurement | | | | | | | (mass/volume | | | | | | | ) | | | | | | + + + +-------+ + + + + | Serum or plasma albumin/globulin mass ratio | + + + + + +--------+ + + | Serum or | 2022-09-22 | [facility] | 0.74 | (missing) | (missing) | | plasma | 17:25 | [facility] | | | albumin/glob | | [facility] | | | | | ulin mass | | | | | | | ratio | | | | | | + + + +--------+ + + + + | Serum or plasma calcium measurement (mass/volume) | + + + + + +-------+ + + | Serum or | 2022-09-22 | [facility] | 9.7 | (missing) | (missing) | | plasma | 17:25 | [facility] calcium | [facility] | | | | | measurement | | | | | | | (mass/volume | | | | | | | ) | | | | | | + + + +-------+ + + + + | Serum or plasma amylase measurement | + + + + + +------+ + + | Serum or | 2022-09-22 | [facility] | 56 | (missing) | (missing) | | plasma | 17:25 | [facility] | [facility] | amylase | | [facility] | | | | | measurement | | | | | | + + + +------+ + + + + | Serum or plasma anion gap 4 | + + + + + +-------+ + + | Serum or | 2022-09-22 | [facility] | 8.6 | (missing) | (missing) | | plasma anion | 17:25 | [facility] | gap 4 | | [facility] | | | | + + + +-------+ + + + + | Serum or plasma aspartate aminotransferase measurement (enzymatic activity/volume) | + + + + + +------+ + + | Serum or | 2022-09-22 | [facility] | 22 | (missing) | (missing) | | plasma | 17:25 | [facility] | | | | aspartate | | [facility] | | | | | aminotransfe | | | | | | | rase | | | | | | | measurement | | | | | | | (enzymatic | | | | | | | activity/vol | | | | | | | ume) | | | | | | + + + +------+ + + + + | Serum or plasma total bilirubin measurement (mass/volume) | + + + + + +-------+ + + | Serum or | 2022-09-22 | [facility] | 0.5 | (missing) | (missing) | | plasma total | 17:25 | [facility] | | bilirubin | | [facility] | | | | | measurement | | | | | | | (mass/volume | | | | | | | ) | | | | | | + + + +-------+ + + + + | Serum or plasma carbon dioxide, total measurement (moles/volume) | + + + + + +------+ + + | Serum or | 2022-09-22 | [facility] | 31 | (missing) | (missing) | | plasma | 17:25 | [facility] | | | | carbon | | [facility] | | | | | dioxide, | | | | | | | total | | | | | | | measurement | | | | | | | (moles/volum | | | | | | | e) | | | | | | + + + +------+ + + + + | Serum or plasma chloride measurement (moles/volume) | + + + + + +-------+ + + | Serum or | 2022-09-22 | [facility] | 102 | (missing) | (missing) | | plasma | 17:25 | [facility] | | | | chloride | | [facility] | | | | | measurement | | | | | | | (moles/volum | | | | | | | e) | | | | | | + + + +-------+ + + + + | Automated erythrocyte distribution width | + + + + + +--------+ + + | Automated | 2022-09-22 | [facility] | 16.4 | (missing) | (missing) | | erythrocyte | 16:00 | [facility] distribution | [facility] | | | | | width | | | | | | + + + +--------+ + + + + | Serum or plasma creatine kinase measurement (enzymatic activity/volume) | + + + + + +------+ + + | Serum or | 2022-09-22 | [facility] | 66 | (missing) | (missing) | | plasma | 17:25 | [facility] | | | | creatine | | [facility] | | | | | kinase | | | | | | | measurement | | | | | | | (enzymatic | | | | | | | activity/vol | | | | | | | ume) | | | | | | + + + +------+ + + + + | Serum or plasma creatinine measurement (mass/volume) | + + + + + +--------+ + + | Serum or | 2022-09-22 | [facility] | 1.11 | (missing) | (missing) | | plasma | 17:25 | [facility] | creatinine | [facility] | | | | | measurement | | | | | | | (mass/volume | | | | | | | ) | | | | | | + + + +--------+ + + + + | Serum globulin measurement (mass/volume) | + + + + + +-------+ + + | Serum | 2022-09-22 | [facility] | 4.2 | (missing) | (missing) | | globulin | 17:25 | [facility] | measurement | [facility] | | | | | (mass/volume | | | | | | | ) | | | | | | + + + +-------+ + + + + | Serum or plasma glucose measurement (mass/volume) | + + + + + +-------+ + + | Serum or | 2022-09-22 | [facility] | 160 | (missing) | (missing) | | plasma | 17:25 | [facility] | glucose | | [facility] | | | | | measurement | | | | | | | (mass/volume | | | | | | | ) | | | | | | + + + +-------+ + + + + | Serum or plasma lactate measurement (moles/volume) | + + + + + +-------+ + + | Serum or | 2022-09-22 | [facility] | 2.1 | (missing) | (missing) | | plasma | 17:29 | [facility] | [facility] | lactate | | [facility] | | | | | measurement | | | | | | | (moles/volum | | | | | | | e) | | | | | | + + + +-------+ + + + + | Serum or plasma potassium measurement (moles/volume) | + + + + + +-------+ + + | Serum or | 2022-09-22 | [facility] | 3.6 | (missing) | (missing) | | plasma | 17:25 | [facility] potassium | [facility] | | | | | measurement | | | | | | | (moles/volum | | | | | | | e) | | | | | | + + + +-------+ + + + + | Serum or plasma protein measurement (mass/volume) | + + + + + +-------+ + + | Serum or | 2022-09-22 | [facility] | 7.3 | (missing) | (missing) | | plasma | 17:25 | [facility] protein | [facility] | | | | | measurement | | | | | | | (mass/volume | | | | | | | ) | | | | | | + + + +-------+ + + + + | Serum or plasma sodium measurement (moles/volume) | + + + + + +-------+ + + | Serum or | 2022-09-22 | [facility] | 138 | (missing) | (missing) | | plasma | 17:25 | [facility] | sodium | | [facility] | | | | | measurement | | | | | | | (moles/volum | | | | | | | e) | | | | | | + + + +-------+ + + + + | Serum or plasma lipase measurement (enzymatic activity/volume) | + + + + + +-------+ + + | Serum or | 2022-09-22 | [facility] | 163 | (missing) | (missing) | | plasma | 17:25 | [facility] | | | | lipase | | [facility] | | | | | measurement | | | | | | | (enzymatic | | | | | | | activity/vol | | | | | | | ume) | | | | | | + + + +-------+ + + + + | Serum or plasma urea nitrogen measurement (mass/volume) | + + + + + +------+ + + | Serum or | 2022-09-22 | [facility] | 28 | (missing) | (missing) | | plasma urea | 17:25 | [facility] nitrogen | [facility] | | | | | measurement | | | | | | | (mass/volume | | | | | | | ) | | | | | | + + + +------+ + + + + | Serum or plasma urea nitrogen/creatinine mass ratio | + + + + + +---------+ + + | Serum or | 2022-09-22 | [facility] | 25.22 | (missing) | (missing) | | plasma urea | 17:25 | [facility] | | | | nitrogen/cre | | [facility] | | | | | atinine mass | | | | | | | ratio | | | | | | + + + +---------+ + + + + | Automated blood monocyte count as percentage of total leukocytes | + + + + + +--------+ + + | Automated | 2022-09-22 | [facility] | 11.3 | (missing) | (missing) | | blood | 16:00 | [facility] | | | monocyte | | [facility] | | | | | count as | | | | | | | percentage | | | | | | | of total | | | | | | | leukocytes | | | | | | + + + +--------+ + + + + | Blood leukocytes automated count (number/volume) | + + + + + +-------+ + + | Blood | 2022-09-22 | [facility] | 5.5 | (missing) | (missing) | | leukocytes | 16:00 | [facility] | | [facility] automated | | [facility] | | | | | count | | | | | | | (number/volu | | | | | | | me) | | | | | | + + + +-------+ + + + + | Serum or plasma alkaline phosphatase measurement (enzymatic activity/volume) | + + + + + +-------+ + + | Serum or | 2022-09-22 | [facility] | 121 | (missing) | (missing) | | plasma | 17:25 | [facility] | | | | alkaline | [facility] | | | | | phosphatase | | | | | | | measurement | | | | | | | (enzymatic | | | | | | | activity/vol | | | | | | | ume) | | | | | | + + + +-------+ + + + + | Automated blood basophil count as percentage of total leukocytes | + + + + + +-------+ + + | Automated | 2022-09-22 | [facility] | 0.9 | (missing) | (missing) | | blood | 16:00 | [facility] | | | | basophil | | [facility] | | | | | count as | | | | | | | percentage | | | | | | | of total | | | | | | | leukocytes | | | | | | + + + +-------+ + + + + | Automated blood eosinophil count as percentage of total leukocytes | + + + + + +-------+ + + | Automated | 2022-09-22 | [facility] | 4.0 | (missing) | (missing) | | blood | 16:00 | [facility] | | | | eosinophil | | [facility] | | | | | count as | | | | | | | percentage | | | | | | | of total | | | | | | | leukocytes | | | | | | + + + +-------+ + + + + | Blood hemoglobin measurement (mass/volume) | + + + + + +--------+ + + | Blood | 2022-09-22 | [facility] | 13.5 | (missing) | (missing) | | hemoglobin | 16:00 | [facility] measurement | [facility] | | | | | (mass/volume | | | | | | | ) | | | | | | + + + +--------+ + + + + | Automated blood hematocrit | + + + + + +--------+ + + | Automated | 2022-09-22 | [facility] | 42.5 | (missing) | (missing) | | blood | 16:00 | [facility] hematocrit | [facility] | | | | + + + +--------+ + + + + | Automated blood lymphocyte count as percentage ot total leukocytes | + + + + + +--------+ + + | Automated | 2022-09-22 | [facility] | 15.2 | (missing) | (missing) | | blood | 16:00 | [facility] | | | lymphocyte | | [facility] | | | | | count as | | | | | | | percentage | | | | | | | ot total | | | | | | | leukocytes | | | | | | + + + +--------+ + + + + | Automated blood neutrophil count as percentage of total leukocytes | + + + + + +--------+ + + | Automated | 2022-09-22 | [facility] | 68.6 | (missing) | (missing) | | blood | 16:00 | [facility] | | | neutrophil | [facility] | | | | | count as | | | | | | | percentage | | | | | | | of total | | | | | | | leukocytes | | | | | | + + + +--------+ + + + + | Automated blood platelet count (count/volume) | + + + + + +-------+ + + | Automated | 2022-09-22 | [facility] | 183 | (missing) | (missing) | | blood | 16:00 | [facility] | [facility] | platelet | [facility] | | | | | count | | | | | | | (count/volum | | | | | | | e) | | | | | | + + + +-------+ + + + + | Automated erythrocyte mean corpuscular hemoglobin (mass per erythrocyte) | + + + + + +--------+ + + | Automated | 2022-09-22 | [facility] | 28.8 | (missing) | (missing) | | erythrocyte | 16:00 | [facility] | | | mean | | [facility] | | | | | corpuscular | | | | | | | hemoglobin | | | | | | | (mass per | | | | | | | erythrocyte) | | | | | | | | | | | | | + + + +--------+ + + + + | Automated erythrocyte mean corpuscular hemoglobin concentration measurement | | (mass/volume) | + + + + + +--------+ + + | Automated | 2022-09-22 | [facility] | 31.8 | (missing) | (missing) | | erythrocyte | 16:00 | [facility] | | | | mean | | [facility] | | | | | corpuscular | | | | | | | hemoglobin | | | | | | | concentratio | | | | | | | n | | | | | | | measurement | | | | | | | (mass/volume | | | | | | | ) | | | | | | + + + +--------+ + + + + | Automated erythrocyte mean corpuscular volume | + + + + + +--------+ + + | Automated | 2022-09-22 | [facility] | 90.5 | (missing) | (missing) | | erythrocyte | 16:00 | [facility] | | [facility] mean | [facility] | | | | | corpuscular | | | | | | | volume | | | | | | + + + +--------+ + + + + | Blood erythrocytes automated count (number/volume) | + + + + + +--------+ + + | Blood | 2022-09-22 | [facility] | 4.70 | (missing) | (missing) | | erythrocytes | 16:00 | [facility] automated | [facility] | | | | | count | | | | | | | (number/volu | | | | | | | me) | | | | | | + + + +--------+ + + + + | Glomerular filtration rate/1.73 sq M.predicted [Volume Rate/Area] inSerum, Plasma or | | Blood by Creatinine-based formula (CKD-EPI 2020) | + + + + + +------+ + + | Glomerular | 2022-09-22 | [facility] | 48 | (missing) | (missing) | | filtration | 17:25 | [facility] | | | | rate/1.73 sq | | Hospital | | | | | M.predicted | | | | | | | [Volume | | | | | | | Rate/Area] | | | | | | | inSerum, | | | | | | | Plasma or | | | | | | | Blood by | | | | | | | Creatinine-b | | | | | | | ased formula | | | | | | | (CKD-EPI | | | | | | | 2020) | | | | | | + + + +------+ + + Social History + + + + | date | description | facility | + + + + | 2022-09-22 00:00 | Former smoker | [facility] | + + + + | 2022-10-07 00:00 | Former smoker | [facility] | + + + + Vital Signs + + + +---------+ | date | measurement | value | units | + + + +---------+ | 2022-09-22 00:00 | BMI | 34.1 | kg/m2 | + + + +---------+ | 2022-09-22 00:00 | BP_diastolic | 66 | mmHg | + + + +---------+ | 2022-09-22 00:00 | BP_systolic | 124 | mmHg | + + + +---------+ | 2022-09-22 00:00 | heart_rate | 50 | /min | + + + +---------+ | 2022-09-22 00:00 | height_metric | 165.1 | cm | + + + +---------+ | 2022-09-22 00:00 | height_standard | 65 | in | + + + +---------+ | 2022-09-22 00:00 | o2_saturation | 96 | % | + + + +---------+ | 2022-09-22 00:00 | respiration_rate | 11 | /min | + + + +---------+ | 2022-09-22 00:00 | temperature_metric | 36.44 | C | | | | | | + + + +---------+ | 2022-09-22 00:00 | | 97.6 | F | | | temperature_standar | | | | | d | | | + + + +---------+ | 2022-09-22 00:00 | weight_metric | 93.04 | kg | + + + +---------+ | 2022-09-22 00:00 | weight_metric | 93.05 | kg | + + + +---------+ | 2022-09-22 00:00 | weight_standard | 205.12 | lb | + + + +---------+ | 2022-09-22 00:00 | weight_standard | 205.13 | lb | + + + +---------+ | 2022-10-07 00:00 | BMI | 34.1 | kg/m2 | + + + +---------+ | 2022-10-07 00:00 | BP_diastolic | 72 | mmHg | + + + +---------+ | 2022-10-07 00:00 | BP_systolic | 115 | mmHg | + + + +---------+ | 2022-10-07 00:00 | heart_rate | 46 | /min | + + + +---------+ | 2022-10-07 00:00 | height_metric | 165.1 | cm | + + + +---------+ | 2022-10-07 00:00 | height_standard | 65 | in | + + + +---------+ | 2022-10-07 00:00 | o2_saturation | 91 | % | + + + +---------+ | 2022-10-07 00:00 | respiration_rate | 20 | /min | + + + +---------+ | 2022-10-07 00:00 | temperature_metric | 36.78 | C | | | | | | + + + +---------+ | 2022-10-07 00:00 | | 98.2 | F | | | temperature_standar | | | | | d | | | + + + +---------+ | 2022-10-07 00:00 | weight_metric | 93.04 | kg | + + + +---------+ | 2022-10-07 00:00 | weight_metric | 93.05 | kg | + + + +---------+ | 2022-10-07 00:00 | weight_standard | 205.12 | lb | + + + +---------+ | 2022-10-07 00:00 | weight_standard | 205.13 | lb | + + + +---------+ | 2022-12-02 00:00 | BMI | 32.8 | kg/m2 | + + + +---------+ | 2022-12-02 00:00 | BP_diastolic | 73 | mmHg | + + + +---------+ | 2022-12-02 00:00 | BP_systolic | 95 | mmHg | + + + +---------+ | 2022-12-02 00:00 | heart_rate | 53 | /min | + + + +---------+ | 2022-12-02 00:00 | height_metric | 165.1 | cm | + + + +---------+ | 2022-12-02 00:00 | height_standard | 65 | in | + + + +---------+ | 2022-12-02 00:00 | o2_saturation | 92 | % | + + + +---------+ | 2022-12-02 00:00 | respiration_rate | 15 | /min | + + + +---------+ | 2022-12-02 00:00 | temperature_metric | 37 | C | | | | | | + + + +---------+ | 2022-12-02 00:00 | | 98.6 | F | | | temperature_standar | | | | | d | | | + + + +---------+ | 2022-12-02 00:00 | weight_metric | 89.36 | kg | + + + +---------+ | 2022-12-02 00:00 | weight_standard | 197 | lb | + + + +---------+ | 2022-12-02 00:00 | weight_standard | 197.01 | lb | + + + +---------+ | 2022-12-19 00:00 | BMI | 33.5 | kg/m2 | + + + +---------+ | 2022-12-19 00:00 | height_metric | 165.1 | cm | + + + +---------+ | 2022-12-19 00:00 | height_standard | 65 | in | + + + +---------+ | 2022-12-19 00:00 | weight_metric | 91.4 | kg | + + + +---------+ | 2022-12-19 00:00 | weight_standard | 201.5 | lb | + + + +---------+ | 2022-12-23 00:00 | BP_diastolic | 62 | mmHg | + + + +---------+ | 2022-12-23 00:00 | BP_systolic | 102 | mmHg | + + + +---------+ | 2022-12-23 00:00 | heart_rate | 65 | /min | + + + +---------+ | 2022-12-23 00:00 | o2_saturation | 95 | % | + + + +---------+ | 2022-12-23 00:00 | respiration_rate | 16 | /min | + + + +---------+ | 2022-12-23 00:00 | temperature_metric | 36.61 | C | | | | | | + + + +---------+ | 2022-12-23 00:00 | | 97.9 | F | | | temperature_standar | | | | | d | | | + + + +---------+"
--- OUTSIDE RECORDS SUMMARY | ~2023-06-02 | XMS | Continuity of Care Document ---
Demographics + + + | Address | [address] | | | [place] [address] | + + + | Preferred Language | Unknown | + + + | Marital Status | | + + + | Hindu Affiliation | Unknown | + + + | Race | or | + + + | Ethnic Group | Not or | + + + Author + + + | Author | [facility] | + + + | Organization | [facility] | + + + | Address | [address] | | | [place] [address] | + + + | Phone | | + + + Care Team Providers + + + + | Care Staff Anesthetist Name | Role | Phone | + [...] | (no severity) | | | | [facility] | | | + + + + + + Encounters No information. Functional Status No information. Immunizations + + + + | date | description | facility | + + + + | 2022-09-22 00:00 | No vaccine administered | [facility] | + + + + | 2022-10-07 00:00 | No vaccine administered | [facility] | + + + + Medications + + + + | date | description | facility | + + + + | 2022-09-23 00:00 | APIXABAN | [facility] | + + + + | 2022-10-14 00:00 | APIXABAN | [facility] | + + + + | 2022-12-02 00:00 | APIXABAN | [facility] | + + + + | 2022-12-23 00:00 | APIXABAN | [facility] | + + + + | 2022-09-22 00:00 | apixaban 5 MG Oral Tablet | [facility] | | | [Eliquis] | | + + + + | 2022-10-07 00:00 | apixaban 5 MG Oral Tablet | [facility] | | | [Eliquis] | | + + + + | 2022-09-23 00:00 | POTASSIUM CHLORIDE | [facility] | + + + + | 2022-10-14 00:00 | POTASSIUM CHLORIDE | [facility] | + + + + | 2022-09-22 00:00 | potassium chloride 20 MEQ | [facility] | | | Extended Release Oral | | | | Tablet [K-Ta | | + + + + | 2022-10-07 00:00 | potassium chloride 20 MEQ | [facility] | | | Extended Release Oral | | | | Tablet [K-Ta | | + + + + | 2022-09-23 00:00 | DOXYCYCLINE MONOHYDRATE | [facility] | + + + + | 2022-10-14 00:00 | DOXYCYCLINE MONOHYDRATE | [facility] | + + + + | 2022-12-02 00:00 | DOXYCYCLINE MONOHYDRATE | [facility] | + + + + | 2022-12-23 00:00 | DOXYCYCLINE MONOHYDRATE | [facility] | + + + + | 2022-09-22 00:00 | doxycycline monohydrate | [facility] | | | 100 MG Oral Capsule | | + + + + | 2022-10-07 00:00 | doxycycline monohydrate | [facility] | | | 100 MG Oral Capsule | | + + + + | 2022-03-09 00:00 | Microencapsulated | [facility] | | | potassium chloride 20 MEQ | | | | Extended Release | | + + + + | 2022-03-09 00:00 | POTASSIUM CHLORIDE | [facility] | + + + + | 2021-11-25 00:00 | CEPHALEXIN | [facility] | + + + + | 2021-11-25 00:00 | CEPHALEXIN | [facility] | + + + + | 2021-11-25 00:00 | CEPHALEXIN | [facility] | + + + + | 2021-11-25 00:00 | CEPHALEXIN | [facility] | + + + + | 2022-03-09 00:00 | CEPHALEXIN | [facility] | + + + + | 2021-11-25 00:00 | cephalexin 500 MG Oral | [facility] | | | Tablet | | + + + + | 2022-03-09 00:00 | cephalexin 500 MG Oral | [facility] | | | Tablet | | + + + + | 2022-12-02 00:00 | SPIRONOLACTONE | [facility] | + + + + | 2022-12-23 00:00 | SPIRONOLACTONE | [facility] | + + + + | 2022-09-23 00:00 | | [facility] | | | TRIAMTERENE/HYDROCHLOROTHIA | | | | ZID | | + + + + | 2022-10-14 00:00 | | [facility] | | | TRIAMTERENE/HYDROCHLOROTHIA | | | | ZID | | + + + + | 2022-12-02 00:00 | | [facility] | | | TRIAMTERENE/HYDROCHLOROTHIA | | | | ZID | | + + + + | 2022-12-23 00:00 | | [facility] | | | TRIAMTERENE/HYDROCHLOROTHIA | | | | ZID | | + + + + | 2022-09-22 00:00 | hydrochlorothiazide 25 MG | [facility] | | | / triamterene 37.5 MG Oral | | | | Capsule | | + + + + | 2022-10-07 00:00 | hydrochlorothiazide 25 MG | [facility] | | | / triamterene 37.5 MG Oral | | | | Capsule | | + + + + | 2022-09-23 00:00 | TORSEMIDE | [facility] | + + + + | 2022-10-14 00:00 | TORSEMIDE | [facility] | + + + + | 2022-12-02 00:00 | TORSEMIDE | [facility] | + + + + | 2022-12-23 00:00 | TORSEMIDE | [facility] | + + + + | 2022-09-22 00:00 | torsemide 20 MG Oral | [facility] | | | Tablet | | + + + + | 2022-10-07 00:00 | torsemide 20 MG Oral | [facility] | | | Tablet | | + + + + | 2022-12-23 00:00 | CALCIUM CARBONATE | [facility] | + + + + | 2022-12-22 00:00 | CEFPODOXIME PROXETIL | [facility] | + + + + | 2022-12-23 00:00 | CYANOCOBALAMIN (VITAMIN | [facility] | | | ) | | + + + + | 2022-09-23 00:00 | FUROSEMIDE | [facility] | + + + + | 2022-10-14 00:00 | FUROSEMIDE | [facility] | + + + + | 2022-12-02 00:00 | FUROSEMIDE | [facility] | + + + + | 2022-12-23 00:00 | FUROSEMIDE | [facility] | + + + + | 2022-09-22 00:00 | furosemide 20 MG Oral | [facility] | | | Tablet | | + + + + | 2022-10-07 00:00 | furosemide 20 MG Oral | [facility] | | | Tablet | | + + + + | 2022-09-23 00:00 | CHOLECALCIFEROL (VITAMIN | [facility] | | | D3) | | + + + + | 2022-10-14 00:00 | CHOLECALCIFEROL (VITAMIN | [facility] | | | D3) | | + + + + | 2022-12-02 00:00 | CHOLECALCIFEROL (VITAMIN | [facility] | | | D3) | | + + + + | 2022-12-23 00:00 | CHOLECALCIFEROL (VITAMIN | [facility] | | | D3) | | + + + + | 2022-09-22 00:00 | cholecalciferol 0.05 MG | [facility] | | | Oral Capsule | | + + + + | 2022-10-07 00:00 | cholecalciferol 0.05 MG | [facility] | | | Oral Capsule | | + + + + | 2022-09-23 00:00 | DILTIAZEM HCL | [facility] | + + + + | 2022-10-14 00:00 | DILTIAZEM HCL | [facility] | + + + + | 2022-12-02 00:00 | DILTIAZEM HCL | [facility] | + + + + | 2022-09-22 00:00 | diltiazem hydrochloride | [facility] | | | 120 MG Oral Tablet | | + + + + | 2022-10-07 00:00 | diltiazem hydrochloride | [facility] | | | 120 MG Oral Tablet | | + + + + | 2022-12-23 00:00 | DILTIAZEM HCL | [facility] | + + + + | 2022-09-23 00:00 | LEVOTHYROXINE SODIUM | [facility] | + + + + | 2022-10-14 00:00 | LEVOTHYROXINE SODIUM | [facility] | + + + + | 2022-12-02 00:00 | LEVOTHYROXINE SODIUM | [facility] | + + + + | 2022-12-23 00:00 | LEVOTHYROXINE SODIUM | [facility] | + + + + | 2022-09-22 00:00 | levothyroxine sodium 0.025 | [facility] | | | MG Oral Tablet | | + + + + | 2022-10-07 00:00 | levothyroxine sodium 0.025 | [facility] | | | MG Oral Tablet | | + + + + | 2022-09-23 00:00 | LEVOTHYROXINE SODIUM | [facility] | + + + + | 2022-10-14 00:00 | LEVOTHYROXINE SODIUM | [facility] | + + + + | 2022-12-02 00:00 | LEVOTHYROXINE SODIUM | [facility] | + + + + | 2022-12-23 00:00 | LEVOTHYROXINE SODIUM | [facility] | + + + + | 2022-09-22 00:00 | levothyroxine sodium 0.125 | [facility] | | | MG Oral Tablet | | + + + + | 2022-10-07 00:00 | levothyroxine sodium 0.125 | [facility] | | | MG Oral Tablet [...] 00:00 | Rash and nonspecific skin | [facility] | | | eruption | | + + + + | 2022-01-20 00:00 | Rash | [facility] | + + + + | 2022-01-20 00:00 | Rash | [facility] | + + + + | 2022-01-20 00:00 | Rash | [facility] | + + + + | 2022-01-20 00:00 | Rash | [facility] | + + + + | 2022-03-09 00:00 | Dependent edema | [facility] | + + + + | 2022-03-09 00:00 | Dependent edema | [facility] | + + + + | 2022-03-09 00:00 | Dependent edema | [facility] | + + + + | 2022-03-09 00:00 | Dependent edema | [facility] | + + + + | [...] + + | 2022-03-09 13:28 | 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) | [facility] | | | [...] 2022-09-22 00:00 | Hematoma of scalp | [facility] | + + + + | 2022-09-22 00:00 | Hematoma of scalp | [facility] | + + + + | 2022-09-22 00:00 | Hematoma of scalp | [facility] | + + + + | 2022-09-22 00:00 | Hematoma of scalp | [facility] | + + + + | 2022-09-22 00:00 | Fall | [facility] | + + + + | 2022-09-22 00:00 | Fall | [facility] | + + + + | 2022-09-22 00:00 | Fall | [facility] | + + + + | 2022-09-22 00:00 | Fall | [facility] | + + + + | 2022-12-02 00:00 | Contusion of back | [facility] | + + + + | 2022-12-02 00:00 | Contusion of back | [facility] | + + + + | 2022-12-19 00:00 | Acute on chronic | [facility] | | | congestive heart failure | | + + + + | 2022-12-19 00:00 | Urinary tract infection | [facility] | + + + + Procedures [...] (missing) | | plasma | 17:25 | [facility] | | | | | glucose | [...] | | plasma anion | 17:25 | Adv[facility] | | | | | gap 4 [...] | 2022-09-22 00:00 | Former smoker | [facility] | + + + + | 2022-10-07 00:00 | Former smoker | [facility] | + + + + Vital [...]
--- OUTSIDE RECORDS SUMMARY | ~2023-06-02 | XMS | Continuity of Care Document ---
Demographics + + + | Address | [address] | | | [place] [address] | + + + | Preferred Language | Unknown | + + + | Marital Status | | + + + | Yarsani Affiliation | Unknown | + + + | Race | or | + + + | Ethnic Group | Not or | + + + Author + + + | Author | [facility] | + + + | Organization | [facility] | + + + | Address | [address] | | | [place] [address] | + + + | Phone | | + + + Care Team Providers + + + + | Care Gis Scientist Name | Role | Phone | + [...] + | (no date) | Penicillins | [facility] | (no reaction) | (no severity) | + + + + + + | (no date) | neomycin | [facility] | (no reaction) | (no severity) | + + + + + + | (no date) | bacitracin | [facility] | (no reaction) | (no severity) | + + + + + + | (no date) | | [facility] | (no reaction) | (no severity) | | | sulfamethoxazol | | | | | | e | | | | + + + + + + | (no date) | trimethoprim | [facility] | (no reaction) | (no severity) | + + + + + + | (no date) | ciprofloxacin | [facility] | (no reaction) | (no severity) | + + + + + + | (no date) | nystatin | [facility] | (no reaction) | (no severity) | + + + + + + | (no date) | polymyxin B | [facility] | (no reaction) | (no severity) | + + + + + + | (no date) | fluticasone | [facility] | (no reaction) | (no severity) | | | furoate | | | | + + + + + + | (no date) | vilanterol | [facility] | (no reaction) | (no severity) | + + + + + + [...] 2022-09-22 00:00 | No vaccine administered | [facility] | + + + + | 2022-10-07 00:00 | No vaccine administered | [facility] | + + + + Medications + + + + | date | description | facility | + + + + | 2022-09-23 00:00 | APIXABAN | [facility] | + + + + | 2022-10-14 00:00 | APIXABAN | [facility] | + + + + | 2022-12-02 00:00 | APIXABAN | [facility] | + + + + | 2022-12-23 00:00 | APIXABAN | [facility] | + + + + | 2022-09-22 00:00 | apixaban 5 MG Oral Tablet | [facility] | | | [Eliquis] | | + + + + | 2022-10-07 00:00 | apixaban 5 MG Oral Tablet | [facility] | | | [Eliquis] | | + + + + | 2022-09-23 00:00 | POTASSIUM CHLORIDE | [facility] | + + + + | 2022-10-14 00:00 | POTASSIUM CHLORIDE | [facility] | + + + + | 2022-09-22 00:00 | potassium chloride 20 MEQ | [facility] | | | Extended Release Oral | | | | Tablet [K-Ta | | + + + + | 2022-10-07 00:00 | potassium chloride 20 MEQ | [facility] | | | Extended Release Oral | | | | Tablet [K-Ta | | + + + + | 2022-09-23 00:00 | DOXYCYCLINE MONOHYDRATE | [facility] | + + + + | 2022-10-14 00:00 | DOXYCYCLINE MONOHYDRATE | [facility] | + + + + | 2022-12-02 00:00 | DOXYCYCLINE MONOHYDRATE | [facility] | + + + + | 2022-12-23 00:00 | DOXYCYCLINE MONOHYDRATE | [facility] | + + + + | 2022-09-22 00:00 | doxycycline monohydrate | [facility] | | | 100 MG Oral Capsule | | + + + + | 2022-10-07 00:00 | doxycycline monohydrate | [facility] | | | 100 MG Oral Capsule | | + + + + | 2022-03-09 00:00 | Microencapsulated | [facility] | | | potassium chloride 20 MEQ | | | | Extended Release | | + + + + | 2022-03-09 00:00 | POTASSIUM CHLORIDE | [facility] | + + + + | 2021-11-25 00:00 | CEPHALEXIN | [facility] | + + + + | 2021-11-25 00:00 | CEPHALEXIN | [facility] | + + + + | 2021-11-25 00:00 | CEPHALEXIN | [facility] | + + + + | 2021-11-25 00:00 | CEPHALEXIN | [facility] | + + + + | 2022-03-09 00:00 | CEPHALEXIN | [facility] | + + + + | 2021-11-25 00:00 | cephalexin 500 MG Oral | [facility] | | | Tablet | | + + + + | 2022-03-09 00:00 | cephalexin 500 MG Oral | [facility] | | | Tablet | | + + + + | 2022-12-02 00:00 | SPIRONOLACTONE | [facility] | + + + + | 2022-12-23 00:00 | SPIRONOLACTONE | [facility] | + + + + | 2022-09-23 00:00 | | [facility] | | | TRIAMTERENE/HYDROCHLOROTHIA | | | | ZID | | + + + + | 2022-10-14 00:00 | | [facility] | | | TRIAMTERENE/HYDROCHLOROTHIA | | | | ZID | | + + + + | 2022-12-02 00:00 | | [facility] | | | TRIAMTERENE/HYDROCHLOROTHIA | | | | ZID | | + + + + | 2022-12-23 00:00 | | [facility] | | | TRIAMTERENE/HYDROCHLOROTHIA | | | | ZID | | + + + + | 2022-09-22 00:00 | hydrochlorothiazide 25 MG | [facility] | | | / triamterene 37.5 MG Oral | | | | Capsule | | + + + + | 2022-10-07 00:00 | hydrochlorothiazide 25 MG | [facility] | | | / triamterene 37.5 MG Oral | | | | Capsule | | + + + + | 2022-09-23 00:00 | TORSEMIDE | [facility] | + + + + | 2022-10-14 00:00 | TORSEMIDE | [facility] | + + + + | 2022-12-02 00:00 | TORSEMIDE | [facility] | + + + + | 2022-12-23 00:00 | TORSEMIDE | [facility] | + + + + | 2022-09-22 00:00 | torsemide 20 MG Oral | [facility] | | | Tablet | | + + + + | 2022-10-07 00:00 | torsemide 20 MG Oral | [facility] | | | Tablet | | + + + + | 2022-12-23 00:00 | CALCIUM CARBONATE | [facility] | + + + + | 2022-12-22 00:00 | CEFPODOXIME PROXETIL | [facility] | + + + + | 2022-12-23 00:00 | CYANOCOBALAMIN (VITAMIN | [facility] | | | ) | | + + + + | 2022-09-23 00:00 | FUROSEMIDE | [facility] | + + + + | 2022-10-14 00:00 | FUROSEMIDE | [facility] | + + + + | 2022-12-02 00:00 | FUROSEMIDE | [facility] | + + + + | 2022-12-23 00:00 | FUROSEMIDE | [facility] | + + + + | 2022-09-22 00:00 | furosemide 20 MG Oral | [facility] | | | Tablet | | + + + + | 2022-10-07 00:00 | furosemide 20 MG Oral | [facility] | | | Tablet | | + + + + | 2022-09-23 00:00 | CHOLECALCIFEROL (VITAMIN | [facility] | | | D3) | | + + + + | 2022-10-14 00:00 | CHOLECALCIFEROL (VITAMIN | [facility] | | | D3) | | + + + + | 2022-12-02 00:00 | CHOLECALCIFEROL (VITAMIN | [facility] | | | D3) | | + + + + | 2022-12-23 00:00 | CHOLECALCIFEROL (VITAMIN | [facility] | | | D3) | | + + + + | 2022-09-22 00:00 | cholecalciferol 0.05 MG | [facility] | | | Oral Capsule | | + + + + | 2022-10-07 00:00 | cholecalciferol 0.05 MG | [facility] | | | Oral Capsule | | + + + + | 2022-09-23 00:00 | DILTIAZEM HCL | [facility] | + + + + | 2022-10-14 00:00 | DILTIAZEM HCL | [facility] | + + + + | 2022-12-02 00:00 | DILTIAZEM HCL | [facility] | + + + + | 2022-09-22 00:00 | diltiazem hydrochloride | [facility] | | | 120 MG Oral Tablet | | + + + + | 2022-10-07 00:00 | diltiazem hydrochloride | [facility] | | | 120 MG Oral Tablet | | + + + + | 2022-12-23 00:00 | DILTIAZEM HCL | [facility] | + + + + | 2022-09-23 00:00 | LEVOTHYROXINE SODIUM | [facility] | + + + + | 2022-10-14 00:00 | LEVOTHYROXINE SODIUM | [facility] | + + + + | 2022-12-02 00:00 | LEVOTHYROXINE SODIUM | [facility] | + + + + | 2022-12-23 00:00 | LEVOTHYROXINE SODIUM | [facility] | + + + + | 2022-09-22 00:00 | levothyroxine sodium 0.025 | [facility] | | | MG Oral Tablet | | + + + + | 2022-10-07 00:00 | levothyroxine sodium 0.025 | [facility] | | | MG Oral Tablet | | + + + + | 2022-09-23 00:00 | LEVOTHYROXINE SODIUM | [facility] | + + + + | 2022-10-14 00:00 | LEVOTHYROXINE SODIUM | [facility] | + + + + | 2022-12-02 00:00 | LEVOTHYROXINE SODIUM | [facility] | + + + + | 2022-12-23 00:00 | LEVOTHYROXINE SODIUM | [facility] | + + + + | 2022-09-22 00:00 | levothyroxine sodium 0.125 | [facility] | | | MG Oral Tablet | | + + + + | 2022-10-07 00:00 | levothyroxine sodium 0.125 | [facility] | | | MG Oral Tablet | [...] 00:00 | Rash and nonspecific skin | [facility] | | | eruption | | + + + + | 2022-01-20 00:00 | Rash | [facility] | + + + + | 2022-01-20 00:00 | Rash | [facility] | + + + + | 2022-01-20 00:00 | Rash | [facility] | + + + + | 2022-01-20 00:00 | Rash | [facility] | + + + + | 2022-03-09 00:00 | Dependent edema | [facility] | + + + + | 2022-03-09 00:00 | Dependent edema | [facility] | + + + + | 2022-03-09 00:00 | Dependent edema | [facility] | + + + + | 2022-03-09 00:00 | Dependent edema | [facility] | + + + + | 2022-03-09 [...] + + | 2022-03-09 13:28 | 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) | [facility] | | | [...] 2022-09-22 00:00 | Hematoma of scalp | [facility] | + + + + | 2022-09-22 00:00 | Hematoma of scalp | [facility] | + + + + | 2022-09-22 00:00 | Hematoma of scalp | [facility] | + + + + | 2022-09-22 00:00 | Hematoma of scalp | [facility] | + + + + | 2022-09-22 00:00 | Fall | [facility] | + + + + | 2022-09-22 00:00 | Fall | [facility] | + + + + | 2022-09-22 00:00 | Fall | [facility] | + + + + | 2022-09-22 00:00 | Fall | [facility] | + + + + | 2022-12-02 00:00 | Contusion of back | [facility] | + + + + | 2022-12-02 00:00 | Contusion of back | [facility] | + + + + | 2022-12-19 00:00 | Acute on chronic | [facility] | | | congestive heart failure | | + + + + | 2022-12-19 00:00 | Urinary tract infection | [facility] | + + + + Procedures No [...] (missing) | (missing) | | (unavailable | 16:0008 | [facility] | | | | | [...] mg/dL | (missing) | | (unavailable | : | [facility] | | | | [...] (missing) | (missing) | | (unavailable | :08 | [facility] ) | [facility] | | | | + + + +------+ + + + + | Result panel 104 | + + + + + +---------+ + + | | 2022-09-22 | [facility] | 25.22 | (missing) | (missing) | | (unavailable | :08 | [facility] | | | | | [...] (missing) | | (unavailable | 15:15:08 | [facility] | COMMENTS | | | | ) [...] (missing) | | (unavailable | 05:07:08 | [facility] | | | | | ) | [...] | 2022-09-22 00:00 | Former smoker | [facility] | + + + + | 2022-10-07 00:00 | Former smoker | [facility] | + + + + Vital Signs [...]
[~2023-06-02 13:38] MED LIST changes: +ASCORBIC ACID500 M3 PO; +CALCIUM500 MG PO; +CEFPODOXIME PR200 MG PO; -CENTRUM SILVER1 EAC3 PO; -VITAMIN D-32000 UNIT PO; +VITAMIN D-40010 MCG PO
--- OUTSIDE RECORDS SUMMARY | 2023-06-02 13:46 | XMS ---
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 No recent Security Events currently on file CRITERIA MET - [facility] C[facility] PROVIDERS KHRIS MORRIS Forming Operator: Foot \T\ Ankle Surgery Current PHONE: [phone] DEANA ATKINS Internal Medicine Current PHONE: [phone] JASWANT HOLLOWAY Nurse Practitioner: Family Current PHONE: [phone] JOSE JUAN DHALIWAL Internal Medicine 01/24/2022-Current PHONE: Unknown YARI SINCLAIR Internal Medicine Current PHONE: [phone] TY TIPTON Nurse Practitioner: Family Current PHONE: [phone] JUNIOR BENAVIDEZ Nurse Practitioner Current [facility] PHONE: [phone] DMITRIY CASTELLANOS Family Medicine Current PHONE: [phone] CONRADO MATA Nurse Practitioner: Family Current PHONE: [phone] Kitty has no Care Guidelines for this patient. Care History Medical/Surgical 01/24/2022 [facility] Patient has follow up with PCP Dr. Dhaliwal on 01/25/2022. 01/24/2022 [facility] - Patient is currently established with [facility]. If patient is seen in the ED during business hours. Please contact CHWs at [facility]. Care Recommendation: If this patient [...] providing care. E.D. VISIT COUNT ([address] [facility]. TOTAL 4 NOTE: Visits indicate total known visits. ED/UCC VISIT TRACKING (12 MO.) 06/02/2023 13:39 [facility] TYPE: Emergency COMPLAINT: - L LEG SWELLING/WEEPING 12/02/2022 14:49 [facility] [place] TYPE: Emergency COMPLAINT: - BRUISED BACK DIAGNOSES: - Allergy status to other antibiotic agents - Allergy status to other drugs, medicaments and biological substances - Allergy status to penicillin - Allergy status to sulfonamides - Chronic kidney disease, stage 3 unspecified - Contusion of lower back and pelvis, initial encounter - Fall on same level, unspecified, initial encounter - Hypertensive chronic kidney disease with stage 1 through stage 4 chronic kidney disease, or unspecified chronic kidney disease - Hypothyroidism, unspecified - Low back pain, unspecified - Other terminal makeup operator (current) drug therapy - Personal history of nicotine dependence - Unspecified atrial fibrillation 10/07/2022 09:42 [facility] [place] TYPE: Emergency COMPLAINT: - FALL DIAGNOSES: - Allergy status to other drugs, medicaments and biological substances - Allergy status to penicillin - Cervicalgia - Essential (primary) hypertension - Hypothyroidism, unspecified - Laceration without foreign body of left elbow, initial encounter - Other terminal makeup operator (current) drug therapy - Sprain of joints and ligaments of unspecified parts of neck, initial encounter - Unspecified atrial fibrillation - Unspecified fall, initial encounter 09/22/2022 15:58 [facility] [place] TYPE: Emergency COMPLAINT: - FALL DIAGNOSES: - Allergy status to other antibiotic agents - Allergy status to other drugs, medicaments and biological substances - Allergy status to penicillin - Allergy status to sulfonamides - Contusion of other part of head, initial encounter - Contusion of scalp, initial encounter - Essential (primary) hypertension - Fall on same level, unspecified, initial encounter - Hypothyroidism, unspecified - Laceration without foreign body of left forearm, initial encounter - Other skilled nursing (current) drug therapy - Personal history of nicotine dependence - Unspecified atrial fibrillation - Unspecified injury of head, initial encounter INPATIENT VISIT TRACKING (12 MO.) 12/21/2022 09:53 [facility] [place] TYPE: Critical Care COMPLAINT: - UTI,WEAKNESS DIAGNOSES: - Acquired absence of both cervix and uterus - Acquired absence of both cervix and uterus - Acquired absence of other organs - Acquired absence of other organs - Acquired absence of other specified parts of digestive tract - Acquired absence of other specified parts of digestive tract - Allergy status to other antibiotic agents - Allergy status to other antibiotic agents - Allergy status to other drugs, medicaments and biological substances - Allergy status to other drugs, medicaments and biological substances - Allergy status to penicillin - Allergy status to penicillin - Allergy status to sulfonamides - Allergy status to sulfonamides - Cataract extraction status, left eye - Cataract extraction status, left eye - Cataract extraction status, right eye - Cataract extraction status, right eye - Chronic kidney disease, unspecified - Chronic kidney disease, unspecified - Contact with and (suspected) exposure to COVID-19 - Contact with and (suspected) exposure to COVID-19 - Dependence on other enabling machines and devices - Dependence on other enabling machines and devices - Heart failure, unspecified - Heart failure, unspecified - Hormone replacement therapy - Hormone replacement therapy - Hypertensive heart and chronic kidney disease with heart failure and stage 1 through stage 4 chronic kidney disease, or unspecified chronic kidney disease - Hypertensive heart and chronic kidney disease with heart failure and stage 1 through stage 4 chronic kidney disease, or unspecified chronic kidney disease - Hypothyroidism, unspecified - Hypothyroidism, unspecified - longterm (current) use of anticoagulants - director long term care (current) use of anticoagulants - Obstructive sleep apnea (adult) (pediatric) - Obstructive sleep apnea (adult) (pediatric) - Other skilled nursing (current) drug therapy - Other skilled nursing (current) drug therapy - Presence of artificial knee joint, bilateral - Presence of artificial knee joint, bilateral - Rheumatic disorders of both mitral and aortic valves - Rheumatic disorders of both mitral and aortic valves - Thrombocytopenia, unspecified - Thrombocytopenia, unspecified - Unspecified atrial fibrillation - Unspecified atrial fibrillation - Unspecified Escherichia coli [E. coli] as the cause of diseases classified elsewhere - Unspecified Escherichia coli [E. coli] as the cause of diseases classified elsewhere - Urinary tract infection, site not specified [email or web address]
[2023-06-02 15:01] LABS: BASOPHILS 0.3 % (0-2); HEMATOCRIT 41.6 % (35.0-50.0); HEMOGLOBIN 13.4 g/dL (12.0-18.0); LYMPHOCYTES 5.1 % (24-44); MCH 29.5 (27-36); MCHC 32.2 g/dl (30-36); MCV 91.6 fl (81-99); NEUTROPHILS 87.6 % (39-80); PLATELET COUNT 167 K/uL (140-440); RBC 4.54 M/ul (4.3-5.7); RDW 17.6 (10.5-15.0)
[2023-06-02 15:13] LABS: ALBUMIN 3.6 g/dL (3.4-5.0); ALBUMIN/GLOBULIN RATIO 0.92 (1.1-2.4); ANION GAP 14.5 (7-21); BILIRUBIN, TOTAL 1.3 ng/dL (0.2-1.0); BUN/CREATININE RATIO 35.45 (6.0-28.6); CALCIUM 9.7 mg/dL (8.5-10.1); CREATININE, SERUM 1.1 mg/dL (0.55-1.02); POTASSIUM 4.5 mmol/L (3.5-5.1); PROTEIN, TOTAL 7.5 g/dL (6.4-8.2)
[2023-06-02 16:08] LABS: ERYTHROCYTE SEDIMENTATION RATE 8
--- NOTE | 2023-06-02 17:30 | NUR ---
SETTLED PT IN BED. LAB WAS AT BEDSIDE TO DRAW CULTURES. PT IS DROWSY. PUREWICK APPLIED.
[2023-06-02 17:56] VITALS: BP 97/52
--- NOTE | 2023-06-02 19:40 | NUR ---
RECEIVED REPORT FROM DAY SHIFT NURSE. PT SITTING UP IN BED WATCHING TV. NO NEEDS AT THIS TIME. CALL LIGHT WITHIN REACH. SAFETY PRECAUTIONS IN PLACE.
[2023-06-02 21:15] VITALS: BP 107/60
--- NOTE | 2023-06-02 21:20 | NUR ---
in to get vs, dinner tray removed, call light in reach
[2023-06-03] VITALS (8 sets, daily range): BP systolic 93–126; BP diastolic 46–71
[2023-06-03 05:23] LABS: EOSINOPHILS 4.8 % (0-6); HEMATOCRIT 39.4 % (35.0-50.0); HEMOGLOBIN 12.7 g/dL (12.0-18.0); LYMPHOCYTES 5.6 % (24-44); MCH 29.4 (27-36); MCHC 32.3 g/dl (30-36); MCV 91.1 fl (81-99); MONOCYTES 33.9 % (0-12); NEUTROPHILS 55.7 % (39-80); PLATELET COUNT 137 K/uL (140-440); RBC 4.32 M/ul (4.3-5.7); RDW 17.7 (10.5-15.0)
[2023-06-03 05:39] LABS: ALBUMIN 3.1 g/dL (3.4-5.0); ALBUMIN/GLOBULIN RATIO 0.84 (1.1-2.4); BILIRUBIN, TOTAL 0.9 ng/dL (0.2-1.0); BUN/CREATININE RATIO 32.72 (6.0-28.6); CALCIUM 9.3 mg/dL (8.5-10.1); CREATININE, SERUM 1.1 mg/dL (0.55-1.02); MAGNESIUM 2.1 mg/dL (1.8-2.4); PHOSPHORUS, INORGANIC 2.7 mg/dL (2.5-4.9); PROTEIN, TOTAL 6.8 g/dL (6.4-8.2)
--- NOTE | 2023-06-03 07:15 | NUR ---
received report from [facility] nurse. pt appears to be sleeping comfortably. respirations even and regular.
--- NOTE | 2023-06-03 08:48 | NUR ---
SET UP PATIENT FOR BREAKFAST. PATIENT WASHED HER FACE. NOW SHE IS EATING HER BREAKFAST. PUT JELLY ON HER TOAST GOT HER A CUP OF COFFEE WITH CREAM. OPENED HER YOGURT FOR HER HER. AND HER MILK. PATIENT IS WATCHING TV WHILE SHE IS EATING HER BREAKFAST. ALSO WASHED HER GLASSES FOR HER.
[2023-06-03] MEDS ORDERED: DILTIAZEM HCL60 MG PO (10:26)
--- NOTE | 2023-06-03 10:27 | NUR ---
medications reconciled with PCP records, Patient RX vials and patient interview
--- NOTE | 2023-06-03 12:32 | NUR ---
assisted pt with lotion to reddnened area on neck. pt states she has md recommended lotion for area. appears to be a sunburn with borders from neck of shirt. assisted pt to bedside commode and changed attends. pt in chair. mary changed and in place.
--- NOTE | 2023-06-03 15:18 | NUR ---
WHEN I GOT BACK FROM LUNCH BEFORE I COULD HER VITALS PATIENT HAD TO USE THE BEDSIDE COMMODE. THAN WANTED TO GO BACK TO BED.
--- NOTE | 2023-06-03 18:00 | NUR ---
ROUNDED ON PT. PT IS A/O, RESPIRATIONS EVEN AND REGULAR. DENIES NEEDS ATT. CALL LIGHT WITHIN REACH.
--- NOTE | 2023-06-03 19:05 | NUR ---
SHIFT REPORT RECEIVED FROM DAYSHIFT VINNY MENDIOLA AT BEDSIDE, pt AWAKE AND RESTING IN BED. ON RA, RR EVEN AND UNLABORED, NO DISTRESS NOTED. REDDNESS NOTED TO LLE, SMALL WEEPING SPOT ALSO NOTED NEAR LEFT ANKLE. NO NEEDS OR CONCERNS VERBALIZED, CALL LIGHT IN REACH.
--- NOTE | 2023-06-03 20:35 | NUR ---
IN TO GET VS, CHANGE PT ATTENDS, PUREGEOFFCK IN PLACE, BOOSTED WITH RN ASSIST, CALL LIGHT IN PLACE
--- NOTE | 2023-06-03 20:52 | NUR ---
ASSESSMENT COMPLETE, SCHEDULED MEDS GIVEN ALONG WITH PRN TYLENOL FOR REPORTED 6/10 PAIN IN LLE. REDDNESS REMAINS IN LLE, STRONG PEDAL PULSES NOTED BILATERALLY. CMS INTACT PER pt. BLE ELEVATED IN BED WITH USE OF BED AND PILLOW. BLE HAVE A EDWIN LIKE APPEARANCE. pt REPORTS SHE USE COMPRESSION SOCKS AT HOME. VSS. PUREWICK EMPTY AT THIS TIME, pt REPORTS SHE VOIDED. WITH HELP FROM ERIC AGUDELO, LORAINE CARE DONE AND DRY ATTENDS IN PLACE. PUREWICK READJUSTED, WILL MONITOR OUTPUT. PUDDING PROVIDED ALONG WITH FRESH ICE WATER. NO ADDITIONAL NEEDS OR CONCERNS VERBALIZED. CALL LIGHT IN REACH.
--- NOTE | 2023-06-03 22:25 | NUR ---
IN TO GET BP/HR FOR RN
--- NOTE | 2023-06-03 22:47 | NUR ---
INFORMED BY UNDER CUTTER OF LOW BP, RESULTS OF 99/45, REPEAT SHOWED 93/54, HR 105. THIS RN IN ROOM TO RECHECK, RESULT OF 101/46, MAP OF 59. MANUAL BP SHOWS RESULT OF 96/46, HR ON MONITOR SHOWS UPPER 50'S TO 60'S CONSISTENTLY. INFOMRATION TOLD TO DR GARCIA, TELEPHONE ORDER READ BACK, OKAY TO HOLD TONIGHTS SCHEDULED CARDIZEM. 1 MINUTE APICAL HR 68. PEN RIDER UPDATED. CALL LIGHT IN REACH AND BED ALARM ON FOR SAFETY.
--- NOTE | 2023-06-04 00:05 | NUR ---
rounded on pt, pt resting quietly in bed. eyes closed, on ra. rr even and unlabored, no distress noted. call light in reach, bed alarm on for safety.
--- NOTE | 2023-06-04 01:53 | NUR ---
pt resting in bed, eyes closed. on ra- rr even and unlabored. no distress noted. pt appears comfortable and relaxed. bed alarm on and call light in reach.
--- NOTE | 2023-06-04 02:14 | NUR ---
pt AWOKE TO VOICE, BP AND HR REASSESSED, REMAINS WNL. FOCUSED ASSESSMENT COMPLETED, NO ACUTE CHANGES. 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 NO ADDITIONAL NEEDS, BLE REMAINS ELEVATED IN BED WITH PILLOW. CALL LIGHT IN REACH AND BED ALARM ON.
[2023-06-04 02:21] VITALS: BP 119/65
--- NOTE | 2023-06-04 02:27 | NUR ---
Went in to assist nurse with blood pressure and pulse check and changing out of the purewick. Nurse brought her a warm blanket. Nothing else needed at this time. Call light is within reach.
[2023-06-04 05:11] VITALS: BP 130/67
--- NOTE | 2023-06-04 05:19 | NUR ---
ROUNDED ON pt, pt RESTING QUIETLY IN BED. RENT COLLECTOR RECENTLY IN ROOM FOR AM VS AND I&O'S. IV SITE REMAINS SALINE LOCKED, WNL. PUREWICK IN PLACE. CALL LIGHT IN REACH. BED ALARM REMAINS ON FOR SAFETY.
[2023-06-04 05:30] LABS: BASOPHILS 0.5 % (0-2); EOSINOPHILS 4.4 % (0-6); HEMATOCRIT 40.2 % (35.0-50.0); LYMPHOCYTES 18.2 % (24-44); MCH 29.5 (27-36); MCHC 32.5 g/dl (30-36); MCV 90.8 fl (81-99); MONOCYTES 14.7 % (0-12); NEUTROPHILS 62.2 % (39-80); PLATELET COUNT 155 K/uL (140-440); RBC 4.43 M/ul (4.3-5.7); RDW 17.3 (10.5-15.0)
--- NOTE | 2023-06-04 05:30 | NUR ---
HEAD COUNSELOR RECENTLY IN ROOM TO COLLECT VS AND I&O'S, SASKIA READJUSTED. NO ADDITIONAL NEEDS, CALL LIGHT IN REACH.
[2023-06-04 05:37] LABS: BUN/CREATININE RATIO 32.5 (6.0-28.6); CALCIUM 9.1 mg/dL (8.5-10.1); CREATININE, SERUM 1.2 mg/dL (0.55-1.02)
--- NOTE | 2023-06-04 06:45 | NUR ---
REDDNESS NOTED ABOVE IV SITE WITH SMALL HARDENED AREA WHEN FLUSHED, pt DENIES PAIN WHEN FLUSHED. IV SITE DC'D, CATHETER TIP INTACT. NEW IV, 22G PLACED TO RIGHT AC-PLACED BY KAY CASILLAS. pt TOLERATED WELL. TOURNIQUET REMOVED. IV SITE SALINE LOCKED. CALL LIGHT IN REACH, BED ALARM ON FOR SAFETY.
--- NOTE | 2023-06-04 07:49 | NUR ---
pt resting eyes closed at time of shift report, left undisturbed. fresh h20 to bedside call light in reach.
[2023-06-04 10:03] VITALS: BP 111/50
--- NOTE | 2023-06-04 10:27 | NUR ---
PT UP TO CHAIR SBA WITH FWW. 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 WORKS IN THE [place] WITH P/T, WELL TOLERATED. RETURNS TO CHAIR TO FINISH MEAL. PT UP TO TOILET AT THIS TIME AMBULATING WELL WITH FWW SBA ONLY. FRESH UNDERGARMENTS PROVIDED PT RETURNS TO SITTING IN THE CHAIR. CALL LIGHT IN HAND
--- NOTE | 2023-06-04 14:21 | NUR ---
PT OFF TO C/T VIA W/C
[2023-06-04 14:57] VITALS: BP 115/60
--- NOTE | 2023-06-04 15:47 | NUR ---
PT BACK FROM C/T TO THE BATHROOM THEN TO THE RECLINER. SOAKED AND WASHED FEET AND LEGS, LOTION APPLIED. PT TO THE BED TO REST FOR A TIME
[2023-06-04 18:09] VITALS: BP 102/51
--- NOTE | 2023-06-04 19:20 | NUR ---
REPORT RECEIVED FROM VINNY DE LA TORRE. pt AWAKE RESTING IN BED, VISITING WITH FAMILY. DENIES NEEDS AT THIS TIME. REQUESTING TYLENOL AT BEDTIME. CALL LIGHT IN REACH.
--- NOTE | 2023-06-04 19:37 | NUR ---
PT FAMILY TO DESK FOR COFFEE. PROVIDED TO DTR, GRANDDTR AND PT . PT WITH NO NEEDS AT THIS TIME.
[2023-06-04 20:38] VITALS: BP 126/53
--- NOTE | 2023-06-04 21:08 | NUR ---
pt AWAKE RESTING IN BED. VS COMPLETE. pt RATES PAIN 10/10 "SHOOTING PAINS". PRN TYLENOL ADMINISTERED FOR PAIN. ASSESSMENT COMPLETE. PUREWICK IN PLACE. pt DENIES TOILETING NEEDS. PO SNACK PROVIDED. CALL LIGHT WITHIN REACH.
--- NOTE | 2023-06-04 23:32 | NUR ---
CHECKED ON pt. RESTING IN BED WITH EYES CLOSED, BREATHING UNLABORED. PUREWICK IN PLACE, URINE IN CANNISTER. NO DISTRESS NOTED.
--- NOTE | 2023-06-05 01:12 | NUR ---
CALL LIGHT ANSWERED. pt ASSISTED TO TURN OFF LIGHTS AND TV. TRAY TABLE CLEARED. pt DENIES ADDITIONAL NEEDS. CALL LIGHT WITHIN REACH.
--- NOTE | 2023-06-05 03:07 | NUR ---
pt RESTING IN BED ON LEFT SIDE. BREATHING UNLABORED. BED ALARM ON. LIGHTS OFF IN ROOM.
[2023-06-05 05:30] VITALS: BP 121/56
--- NOTE | 2023-06-05 05:30 | NUR ---
PT AWAKE IN BED. VITALS AND IS AND OS COMPLETE. PT PUREWICK CHANGED BY THIS MECHANICAL STRIPER. CANISTER EMPTIED. ICE WATER PROVIDED. NO NEEDS. CALL LIGHT WITHIN REACH
[2023-06-05 05:40] LABS: BASOPHILS 0.9 % (0-2); EOSINOPHILS 6.4 % (0-6); HEMATOCRIT 39.8 % (35.0-50.0); HEMOGLOBIN 12.8 g/dL (12.0-18.0); LYMPHOCYTES 20.9 % (24-44); MCH 29.4 (27-36); MCHC 32.2 g/dl (30-36); MCV 91.2 fl (81-99); MONOCYTES 12.4 % (0-12); NEUTROPHILS 59.4 % (39-80); PLATELET COUNT 159 K/uL (140-440); RBC 4.37 M/ul (4.3-5.7); RDW 17.5 (10.5-15.0)
[2023-06-05 05:49] LABS: ANION GAP 8.3 (7-21); BUN/CREATININE RATIO 31.74 (6.0-28.6); CALCIUM 9.4 mg/dL (8.5-10.1); CREATININE, SERUM 1.26 mg/dL (0.55-1.02); POTASSIUM 4.3 mmol/L (3.5-5.1)
--- NOTE | 2023-06-05 06:26 | NUR ---
IN ROOM AFTER LAB DRAW. VSS. pt DENIES NEED FOR PRN PAIN MEDICATION. LEGS ASSESSED, 1+ EDEMA BLE, WARM TO TOUCH, PAINFUL WITH LIGHT PALPATION. ELEVATED ON PILLOW AT THIS TIME. REDNESS UP TO KNEES BILATERALLY. pt AWAKE WATCHING TV. DENIES ADDITIONAL NEEDS. CALL LIGHT IN REACH.
--- NOTE | 2023-06-05 07:35 | NUR ---
PT RESTING EYES CLOSED AT TIME OF SHIFT REPORT. LEFT UNDISTURBED. CALL LIGHT IS ON HER CHEST BED ALARM IS SET. FRESH H20 TO BEDSIDE
--- NOTE | 2023-06-05 07:45 | NUR ---
PT RESTING IN BED. PT REFUSED TO GET UP TO CHAIR. PT SAT UP IN BED FOR BREAKFAST. NO NEEDS. CALL LIGHT WITHIN REACH
[2023-06-05 08:50] VITALS: BP 103/49
[2023-06-05 08:55] VITALS: BP 114/53
--- NOTE | 2023-06-05 09:48 | NUR ---
PT RESTED IN BED THIS SHIFT ATE 100% OF MORNING MEAL. UP TO THE TOILET AND WORKING WITH P/T AT THIS TIME.
--- NOTE | 2023-06-05 10:25 | NUR ---
PT SITTING UP IN THE CHAIR FAMILY PRESENT X3. DR GARCIA IS IN TO SEE PT AND DISCUSSING PLANS FOR DC. ALL QUESTIONS ANSWERED
[2023-06-05] MEDS ORDERED: DOXYCYCLINE HY100 MG PO (11:25)
--- NOTE | 2023-06-05 12:06 | NUR ---
SITTING UP IN BED. STATES SHE LIVES IN HOUSE WITH . DOES HAVE STAIRS AND RAMP INTO HOUSE. USES RAMP WITHOUT DIFFICULTIES. HAS FAMILY IN DAILY TO ASSIST WITH MEALS AND CARE OF HER , WHO HAS DEMENTIA. DID HAVE A CAREGIVER, BUT THEY ARE NO LONGER COMING. FAMILY MEMBERS ALSO DO GROCERY SHOPPING FOR PATIENT AND HER , THEY ASSIST WITH OBTAINING MEDICATIONS AND GETTING PATIENT TO APPOINTMENTS IF NEEDED. PATIENT OCCASIONALLY WILL DRIVE SHORT DISTANCES BUT DUE TO CELLULITIS, SHE IS HAVING ISSUES WITH INCREASED WEAKNESS. WILL NEED HOME HEALTH PT/OT/BATH AIDE. DENIES OTHER NEEDS AT THIS TIME.
--- NOTE | 2023-06-05 12:07 | NUR ---
PATIENT AND SPOUSE RECEIVE MEALS ON WHEELS AND HAVE ASSISTANCE FROM FAMILY TO OBTAIN FOOD. DENIES FINANCIAL BURDENS.
--- NOTE | 2023-06-05 12:10 | NUR ---
PT VISITING WITH DC MAPPING PILOT AND EATING NOON MEAL IN BED. CALL LIGHT IN REACH DENIES OTHER NEEDS OF
--- NOTE | 2023-06-05 13:33 | NUR ---
REFERRAL FAXED TO [facility] PER PATIENT PREFERENCE, FOR PT/OT/BATH AIDE.
== END 2023-06-05 13:40 | disposition home or self-care (01) | DRG 603 ==
LOC: ED 13:38 → MS 13:40
PROVIDERS: Student in an Organized Health Care Education/Training Program; ADMIT Family Medicine; ATTEND Family Medicine
DX: L03.116 Cellulitis of left lower limb (principal); I13.0 Hypertensive heart and chronic kidney disease with heart failure and stage 1 through stage 4 chronic kidney disease, or unspecified chronic kidney disease; I50.9 Heart failure, unspecified; I48.91 Unspecified atrial fibrillation; E03.9 Hypothyroidism, unspecified; I87.8 Other specified disorders of veins; N18.30 Chronic kidney disease, stage 3 unspecified; I89.0 Lymphedema, not elsewhere classified; R00.1 Bradycardia, unspecified; I08.3 Combined rheumatic disorders of mitral, aortic and tricuspid valves; Z79.899 Other long term (current) drug therapy; Z88.0 Allergy status to penicillin; Z88.1 Allergy status to other antibiotic agents; Z88.2 Allergy status to sulfonamides; Z91.118 Patient's noncompliance with dietary regimen for other reason; Z88.8 Allergy status to other drugs, medicaments and biological substances; Z79.890 Hormone replacement therapy; Z87.891 Personal history of nicotine dependence; Z98.890 Other specified postprocedural states; Z90.710 Acquired absence of both cervix and uterus; Z96.653 Presence of artificial knee joint, bilateral; Z98.49 Cataract extraction status, unspecified eye; Z90.49 Acquired absence of other specified parts of digestive tract; Z79.01 Long term (current) use of anticoagulants
CPT/HCPCS: 36415; 73701; 80048; 80053; 83605; 83735; 84100; 85025; 85651; 86140; 93971; 96374; 97110; 97116; 97162; 97166; 97535; 99284-25; A9270; J0878

== ENCOUNTER 2023-12-09 18:26 | Emergency (ER) | payer MEDICARE ==
[~2023-12-09] VITALS: Ht 165.1 cm; Wt 90.8 kg
[~2023-12-09 18:26] MED LIST changes: +DOXYCYCLINE HY100 MG PO
[2023-12-09 20:04] LABS: BASOPHILS 1.2 % (0-2); EOSINOPHILS 5.1 % (0-6); HEMATOCRIT 41.8 % (35.0-50.0); HEMOGLOBIN 13.7 g/dL (12.0-18.0); LYMPHOCYTES 17.3 % (24-44); MCH 29.7 (27-36); MCHC 32.8 g/dl (30-36); MCV 90.6 fl (81-99); MONOCYTES 11.9 % (0-12); NEUTROPHILS 64.5 % (39-80); PLATELET COUNT 134 K/uL (140-440); RBC 4.61 M/ul (4.3-5.7)
[2023-12-09 20:27] LABS: ALBUMIN 3.4 g/dL (3.4-5.0); ALBUMIN/GLOBULIN RATIO 0.87 (1.1-2.4); ANION GAP 11.2 (7-21); BILIRUBIN, TOTAL 0.5 ng/dL (0.2-1.0); BUN/CREATININE RATIO 30.84 (6.0-28.6); CALCIUM 9.6 mg/dL (8.5-10.1); CREATININE, SERUM 1.07 mg/dL (0.55-1.02); POTASSIUM 4.2 mmol/L (3.5-5.1); PROTEIN, TOTAL 7.3 g/dL (6.4-8.2)
[2023-12-09] MEDS ORDERED: HYDROCODON-ACE1 EA10 PO (21:40)
[2023-12-09] MEDS ORDERED: CEPHALEXIN500 M1 PO (21:40)
[2023-12-09] MEDS ORDERED: HYDROCODONE BIT/ACETAMINOPHEN 5/325 MG 1 TAB HOME.PACK PO ONE (21:45)
[2023-12-09] MEDS ORDERED: CEPHALEXIN MONOHYDRATE 500 MG HOME.PACK PO ONE (21:45)
[2023-12-09 22:20] VITALS: BP 105/66
== END 2023-12-09 22:20 | disposition home or self-care (01) ==
LOC: ED 18:26
PROVIDERS: Family Medicine
DX: I11.0 Hypertensive heart disease with heart failure (principal); I50.9 Heart failure, unspecified; L03.116 Cellulitis of left lower limb; L03.115 Cellulitis of right lower limb; I87.8 Other specified disorders of veins; I48.91 Unspecified atrial fibrillation; I89.0 Lymphedema, not elsewhere classified; Z87.891 Personal history of nicotine dependence; Z88.8 Allergy status to other drugs, medicaments and biological substances; Z88.1 Allergy status to other antibiotic agents; Z88.0 Allergy status to penicillin; Z88.2 Allergy status to sulfonamides; Z79.01 Long term (current) use of anticoagulants; Z79.890 Hormone replacement therapy; Z79.899 Other long term (current) drug therapy
CPT/HCPCS: 36415; 80053; 83880; 85025; A9270

== ENCOUNTER 2024-06-26 08:13 | Emergency (ER) | payer MEDICARE ==
[~2024-06-26] VITALS: Ht 165.1 cm; Wt 89.6 kg
[~2024-06-26 08:13] MED LIST changes: +CEPHALEXIN500 MG PO; +ELIQUIS2.5 MG PO; +HYDROCODON-ACE1 EA10 PO; +LEVOFLOXACIN750 MG PO; +MOMETASONE FURO15 G1 TOP; +TYLENOL EXTRA500 MG PO; +VITAMIN C500 M1 PO
[2024-06-26] MEDS ORDERED: HYDROCODONE/ACETA 5/325 TAB PO ONE (08:30)
[2024-06-26] MEDS ORDERED: ONDANSETRON 4 MG TAB ODT SL ONE (08:30)
[2024-06-26] MEDS ORDERED: ONDANSETRON ODT4 MG PO (09:19)
[2024-06-26] MEDS ORDERED: HYDROCODON-ACE1 EA10 PO (09:19)
[2024-06-26 09:58] VITALS: BP 115/68
== END 2024-06-26 09:59 | disposition home or self-care (01) ==
LOC: ED 08:13
DX: S43.401A Unspecified sprain of right shoulder joint, initial encounter (principal); S43.101A Unspecified dislocation of right acromioclavicular joint, initial encounter; I12.9 Hypertensive chronic kidney disease with stage 1 through stage 4 chronic kidney disease, or unspecified chronic kidney disease; N18.30 Chronic kidney disease, stage 3 unspecified; W18.30XA Fall on same level, unspecified, initial encounter; Z95.0 Presence of cardiac pacemaker; Z87.891 Personal history of nicotine dependence; Z96.653 Presence of artificial knee joint, bilateral; Z88.0 Allergy status to penicillin; Z88.1 Allergy status to other antibiotic agents; Z88.8 Allergy status to other drugs, medicaments and biological substances; Z79.01 Long term (current) use of anticoagulants; Z79.890 Hormone replacement therapy
CPT/HCPCS: 73030; 73060; 73090; 73130; 99283; A9270

== ENCOUNTER 2024-10-17 22:09 | Emergency (ER) | payer MEDICARE ==
[~2024-10-17] VITALS: Ht 165.1 cm; Wt 89.8 kg
[~2024-10-17 22:09] MED LIST changes: +ONDANSETRON ODT4 MG PO
[2024-10-17 23:15] LABS: BILIRUBIN, URINE NEGATIVE (negative); BLOOD/HGB, URINE NEGATIVE (Negative); KETONE, URINE NEGATIVE (Negative); LEUK ESTERASE, URINE NEGATIVE (negative); NITRITE, URINE NEGATIVE (negative); PH, URINE 5.5 (5-7)
[2024-10-17 23:21] LABS: BACTERIA, URINE NONE SEEN /hpf (negative); CASTS, URINE NONE SEEN \\lpf; COLLECTION TYPE, URINE CLEAN CATCH; CRYSTALS, URINE NONE SEEN (0-1+); EPITHELIAL CELLS, URINE SQUAMOUS 1+ /lpf (0-1+); RED BLOOD CELLS, URINE 0-1 /hpf (0-5); REFLEX CULTURE, URINE No (No)
[2024-10-18 00:18] LABS: BASOPHILS 0.4 % (0-2); EOSINOPHILS 2.8 % (0-6); HEMATOCRIT 39.1 % (35.0-50.0); HEMOGLOBIN 13.2 g/dL (12.0-18.0); MCHC 33.7 g/dl (30-36); MCV 92.1 fl (81-99); MONOCYTES 14.8 % (0-12); PLATELET COUNT 125 K/uL (140-440); RBC 4.25 M/ul (4.3-5.7); RDW 16.1 (10.5-15.0)
[2024-10-18 00:35] LABS: ALBUMIN/GLOBULIN RATIO 0.71 (1.1-2.4); BILIRUBIN, TOTAL 0.9 ng/dL (0.2-1.0); BUN/CREATININE RATIO 33.07 (6.0-28.6); CREATININE, SERUM 1.3 mg/dL (0.55-1.02); PROTEIN, TOTAL 7.2 g/dL (6.4-8.2)
[2024-10-18 02:00] VITALS: BP 110/58
== END 2024-10-18 02:30 | disposition home or self-care (01) ==
LOC: ED 22:09
PROVIDERS: Emergency Medicine
DX: R53.1 Weakness (principal); I10 Essential (primary) hypertension; E03.9 Hypothyroidism, unspecified; I48.91 Unspecified atrial fibrillation; Z95.0 Presence of cardiac pacemaker; Z88.0 Allergy status to penicillin; Z88.1 Allergy status to other antibiotic agents; Z88.2 Allergy status to sulfonamides; Z88.8 Allergy status to other drugs, medicaments and biological substances; Z79.890 Hormone replacement therapy; Z79.899 Other long term (current) drug therapy
CPT/HCPCS: 36415; 70450; 80053; 81001; 85025; 99285-25

== ENCOUNTER 2024-11-19 16:10 | Emergency (ER) | payer OTHER, MEDICARE ==
[~2024-11-19] VITALS: Ht 165.1 cm; Wt 90.3 kg
[2024-11-19] MEDS ORDERED: fentaNYL citrate 100 MCG/2 ML VIAL IV ONE (16:30)
[2024-11-19 16:34] LABS: BASOPHILS 0.8 % (0-2); EOSINOPHILS 3.2 % (0-6); HEMATOCRIT 47.9 % (35.0-50.0); LYMPHOCYTES 20.7 % (24-44); MCH 30.6 (27-36); MCHC 33.3 g/dl (30-36); MCV 91.9 fl (81-99); MONOCYTES 13.7 % (0-12); NEUTROPHILS 61.6 % (39-80); PLATELET COUNT 179 K/uL (140-440); RBC 5.21 M/ul (4.3-5.7); RDW 14.9 (10.5-15.0)
[2024-11-19 16:40] LABS: ALBUMIN 3.9 g/dL (3.4-5.0); ALBUMIN/GLOBULIN RATIO 0.95 (1.1-2.4); ALCOHOL, MEDICAL <3 ng/dL (<3); ALKALINE PHOSPHATASE 138 U/L (46-116); ALT (SGPT) 35 U/L (14-59); ANION GAP 12.9 (7-21); AST (SGOT) 36 U/L (15-37); BILIRUBIN, TOTAL 0.7 ng/dL (0.2-1.0); BUN/CREATININE RATIO 24.69 (6.0-28.6); CALCIUM 10.3 mg/dL (8.5-10.1); CARBON DIOXIDE 29 mmol/L (21-32); CHLORIDE 93 mmol/L (98-107); CREATININE, SERUM 1.62 mg/dL (0.55-1.02); GLOMERULAR FILTRATION RATE,EST 30 mL/min (>60); POTASSIUM 4.9 mmol/L (3.5-5.1); UREA NITROGEN 40 mg/dL (7-18)
[2024-11-19 17:06] LABS: ABO O; RH POSITIVE
[2024-11-19 17:07] LABS: ANTIBODY SCREEN NEGATIVE
[2024-11-19 22:10] VITALS: BP 118/61
== END 2024-11-19 22:10 | disposition home or self-care (01) ==
LOC: ED 16:10
PROVIDERS: Emergency Medicine
DX: S52.614A Nondisplaced fracture of right ulna styloid process, initial encounter for closed fracture (principal); S50.01XA Contusion of right elbow, initial encounter; S09.90XA Unspecified injury of head, initial encounter; I10 Essential (primary) hypertension; E03.9 Hypothyroidism, unspecified; I48.91 Unspecified atrial fibrillation; Z95.0 Presence of cardiac pacemaker; Z87.891 Personal history of nicotine dependence; Z88.0 Allergy status to penicillin; Z88.1 Allergy status to other antibiotic agents; Z88.2 Allergy status to sulfonamides; Z88.8 Allergy status to other drugs, medicaments and biological substances; Z79.890 Hormone replacement therapy; Z79.899 Other long term (current) drug therapy; W01.10XA Fall on same level from slipping, tripping and stumbling with subsequent striking against unspecified object, initial encounter
CPT/HCPCS: 29125; 36415; 70450; 71045; 72125; 72170; 73030; 73110; 80053; 80307; 85025; 86850; 86900; 86901; 99285-25; G0480; J3010

== ENCOUNTER 2025-02-14 10:16 | Emergency (ER) | payer MEDICARE ==
[~2025-02-14] VITALS: Ht 165.1 cm; Wt 90.6 kg
[2025-02-14] MEDS ORDERED: FLUCONAZOLE 200 MG TAB PO ONE (13:15)
[2025-02-14] MEDS ORDERED: NYAMYC15 GM TOP (13:18)
[2025-02-14 13:30] VITALS: BP 107/57
== END 2025-02-14 13:30 | disposition home or self-care (01) ==
LOC: ED 10:16
DX: E65 Localized adiposity (principal); I10 Essential (primary) hypertension; I48.91 Unspecified atrial fibrillation; Z87.891 Personal history of nicotine dependence; Z88.0 Allergy status to penicillin; Z88.2 Allergy status to sulfonamides; Z88.5 Allergy status to narcotic agent
CPT/HCPCS: 99283

== ENCOUNTER 2025-04-16 13:23 | Emergency (ER) | payer MEDICARE ==
[~2025-04-16] VITALS: Ht 165.1 cm; Wt 99.5 kg
[~2025-04-16 13:23] MED LIST changes: +NYAMYC15 GM TOP
[2025-04-16] MEDS ORDERED: HYDROCORTISO453.6 G2 (13:39)
[2025-04-16] MEDS ORDERED: MICONAZOLE NITR15 GM (13:39)
[2025-04-16 13:56] LABS: BASOPHILS 0.6 % (0.1-1.2); EOSINOPHILS 9.7 % (0.7-5.8); LYMPHOCYTES 15.4 % (19.3-51.7); MCH 30.7 PG (25.6-32.2); MCHC 32.2 g/dL (32.2-35.5); MCV 95.2 fL (79.4-94.8); MONOCYTES 12.5 % (4.7-12.5); NEUTROPHILS 61.6 % (34.0-71.1); RBC 4.14 M/uL (3.93-5.22)
[2025-04-16] MEDS ORDERED: LOTRIMIN AF12 GM (14:09)
[2025-04-16] MEDS ORDERED: POTASSIUM CHLO10 ME2 PO (14:09)
[2025-04-16] MEDS ORDERED: COD LIVER OIL1 EAC2 (14:10)
[2025-04-16 14:23] LABS: ALT (SGPT) 17.0 U/L (14-59); AST (SGOT) 18.0 U/L (15-37); GLOMERULAR FILTRATION RATE,EST 30.0 mL/min (>60); PROTEIN, TOTAL 7.4 g/dL (6.4-8.2); UREA NITROGEN 33.0 mg/dL (7-18)
[2025-04-16 16:43] VITALS: BP 102/60
--- NOTE | 2025-04-18 16:00 | EKG ---
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
== END 2025-04-16 17:00 | disposition home or self-care (01) ==
LOC: ED 13:23
PROVIDERS: Emergency Medicine
DX: R60.0 Localized edema (principal); I10 Essential (primary) hypertension; I48.91 Unspecified atrial fibrillation; Z87.891 Personal history of nicotine dependence; Z88.0 Allergy status to penicillin; Z88.1 Allergy status to other antibiotic agents
CPT/HCPCS: 36415; 71045; 80053; 83735; 83880; 84484; 85025; 93005; 93010; 99285-25

== ENCOUNTER 2025-06-03 17:03 | Emergency (ER) | payer MEDICARE, OTHER ==
[~2025-06-03] VITALS: Ht 165.1 cm; Wt 96.5 kg
[~2025-06-03 17:03] MED LIST changes: +COD LIVER OIL1 EAC2; +HYDROCORTISO453.6 G2; +LOTRIMIN AF12 GM; +MICONAZOLE NITR15 GM; +POTASSIUM CHLO10 ME2 PO
[2025-06-03 17:24] LABS: BASOPHILS 0.8 % (0.1-1.2); EOSINOPHILS 5.0 % (0.7-5.8); LYMPHOCYTES 16.6 % (19.3-51.7); MCH 29.9 PG (25.6-32.2); MCHC 32.4 g/dL (32.2-35.5); MCV 92.1 fL (79.4-94.8); MONOCYTES 12.2 % (4.7-12.5); NEUTROPHILS 65.1 % (34.0-71.1); RBC 4.79 M/uL (3.93-5.22)
[2025-06-03 17:40] LABS: ALT (SGPT) 23.0 U/L (14-59); AST (SGOT) 24.0 U/L (15-37); GLOMERULAR FILTRATION RATE,EST 33.0 mL/min (>60); PROTEIN, TOTAL 8.2 g/dL (6.4-8.2); UREA NITROGEN 38.0 mg/dL (7-18)
[2025-06-03 20:19] VITALS: BP 128/73
--- NOTE | 2025-06-04 08:12 | EKG ---
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
== END 2025-06-03 20:23 | disposition home or self-care (01) ==
LOC: ED 17:03
PROVIDERS: Emergency Medicine
DX: I87.8 Other specified disorders of veins (principal); R60.0 Localized edema; I10 Essential (primary) hypertension; I48.91 Unspecified atrial fibrillation; Z95.0 Presence of cardiac pacemaker; Z88.0 Allergy status to penicillin; Z88.2 Allergy status to sulfonamides; Z79.899 Other long term (current) drug therapy; Z79.01 Long term (current) use of anticoagulants
CPT/HCPCS: 36415; 71045; 80053; 85025; 93005; 93010; 99284-25

== ENCOUNTER 2025-10-10 09:35 | Inpatient (IN) | payer MEDICARE, OTHER ==
[~2025-10-10] VITALS: Ht 165.1 cm; Wt 112.0 kg
[2025-10-10] MEDS ORDERED: SODIUM CHLORIDE 0.9% 500 ML IV ONE (10:00)
[2025-10-10 12:09] LABS: BASOPHILS 0.4 % (0.1-1.2); EOSINOPHILS 2.0 % (0.7-5.8); LYMPHOCYTES 13.7 % (19.3-51.7); MCH 30.6 PG (25.6-32.2); MCHC 32.3 g/dL (32.2-35.5); MCV 94.7 fL (79.4-94.8); MONOCYTES 10.4 % (4.7-12.5); NEUTROPHILS 73.3 % (34.0-71.1); RBC 4.90 M/uL (3.93-5.22)
[2025-10-10 12:31] LABS: ALT (SGPT) 46.0 U/L (14-59); AST (SGOT) 41.0 U/L (15-37); GLOMERULAR FILTRATION RATE,EST 27.0 mL/min (>60); PROTEIN, TOTAL 7.8 g/dL (6.4-8.2); UREA NITROGEN 67.0 mg/dL (7-18)
[2025-10-10] MEDS ORDERED: LIDOCAINE 2% VISCOUS 6 ML SYR TOP ONE (14:15)
[2025-10-10] MEDS ORDERED: SODIUM CHLORIDE 0.9% 1,000 ML IV ONE (14:15)
[2025-10-10 15:10] LABS: BLOOD/HGB, URINE NEGATIVE (Negative); KETONE, URINE NEGATIVE (Negative); LEUK ESTERASE, URINE NEGATIVE (negative); NITRITE, URINE NEGATIVE (negative)
[2025-10-10 17:04] LABS: GLOMERULAR FILTRATION RATE,EST 30.0 mL/min (>60); UREA NITROGEN 62.0 mg/dL (7-18)
[2025-10-10] MEDS ORDERED: SODIUM CHLORIDE 0.9% 1,000 ML IV SCH (18:15)
[2025-10-10] MEDS ORDERED: LACTATED RINGER'S 1,000 ML IV SCH (18:45)
[2025-10-10] MEDS ORDERED: ACETAMINOPHEN 325 MG TAB PO PRN (18:45)
[2025-10-10 19:13] LABS: TSH, 3RD GENERATION 1.054 uIU/mL (0.358-3.740)
[2025-10-10] MEDS ORDERED: MELATONIN 3 MG TAB PO PRN (21:00)
[2025-10-10] MEDS ORDERED: VANCOMYCIN PER PHARMACY PROTOCOL IV SCH (21:15)
[2025-10-10 21:20] VITALS: BP 105/73
--- NOTE | 2025-10-10 21:25 | EKG ---
[facility] [address] [facility] [place] [address] Signed Wide QRS rhythm Left ventricular hypertrophy with QRS widening and repolarization abnormality ( Venkata product ) Abnormal ECG When compared with ECG of 03-JUN-2025 17:50, Wide QRS rhythm has replaced Electronic ventricular pacemaker Confirmed by Elvin Knott DO ([id number]) on 10/10/2025 9:25:03 PM Electronically Signed By: ELVIN KNOTT DO [id number]/10/[id number] PATIENT NAME: TASIA VALDIVIALINDSEY JOINER Electrocardiogram DATE OF : 35 PHYSICIAN: ELVIN KNOTT DO REPORT #: [id number] REPORT IS CONFIDENTIAL AND NOT TO BE RELEASED WITHOUT AUTHORIZATION
[2025-10-10] MEDS ORDERED: Calcium Gluconate in NS 1,000 MG/50 ML BAG IV ONE (21:30)
[2025-10-10] MEDS ORDERED: SODIUM ZIRCONIUM CYCLOSILICATE 10 GM PACK PO ONE (21:30)
[2025-10-10] MEDS ORDERED: VANCOMYCIN HCL 2,750 MG in DEXTROSE 5% 500 ML IV ONE (21:45)
[2025-10-10 21:53] LABS: GLOMERULAR FILTRATION RATE,EST 30.0 mL/min (>60); UREA NITROGEN 61.0 mg/dL (7-18)
[2025-10-10 21:57] LABS: AMPHETAMINES, URINE NEGATIVE (NEGATIVE); BARBITURATES, URINE NEGATIVE (NEGATIVE); BENZODIAZEPINE, URINE NEGATIVE (NEGATIVE); CANNABINOID, URINE NEGATIVE (NEGATIVE); COCAINE, URINE NEGATIVE (NEGATIVE); ECSTASY, URINE NEGATIVE (NEGATIVE); FENTANYL, URINE NEGATIVE (NEGATIVE); METHADONE, URINE NEGATIVE (NEGATIVE); OPIATES, URINE NEGATIVE (NEGATIVE); OXYCODONE, URINE NEGATIVE (NEGATIVE); PHENCYCLIDINE, URINE NEGATIVE (NEGATIVE)
[2025-10-10 22:00] VITALS: BP 99/73
[2025-10-10] MEDS ORDERED: MEROPENEM 1,000 MG in DEXTROSE 5% 100 ML IV SCH (22:00)
[2025-10-10 23:00] VITALS: BP 104/77
[2025-10-11] VITALS (20 sets, daily range): BP systolic 86–110; BP diastolic 49–67
[2025-10-11 05:21] LABS: BASOPHILS 0.6 % (0.1-1.2); EOSINOPHILS 3.1 % (0.7-5.8); LYMPHOCYTES 15.1 % (19.3-51.7); MCH 30.7 PG (25.6-32.2); MCHC 33.0 g/dL (32.2-35.5); MCV 93.1 fL (79.4-94.8); MONOCYTES 13.8 % (4.7-12.5); NEUTROPHILS 67.1 % (34.0-71.1); RBC 4.20 M/uL (3.93-5.22)
[2025-10-11 05:39] LABS: ALT (SGPT) 36.0 U/L (14-59); AST (SGOT) 33.0 U/L (15-37); GLOMERULAR FILTRATION RATE,EST 30.0 mL/min (>60); PROTEIN, TOTAL 6.4 g/dL (6.4-8.2); UREA NITROGEN 55.0 mg/dL (7-18)
[2025-10-11] MEDS ORDERED: DEXTROSE 50% 50 ML SYR IV ONE (08:15)
[2025-10-11] MEDS ORDERED: Insulin Regular, Human 100 UNIT/ML ML SUB-Q ONE (08:15)
[2025-10-11] MEDS ORDERED: ALBUMIN HUMAN 25% 100 ML BTL IV ONE (09:30)
[2025-10-11] MEDS ORDERED: MEROPENEM 1,000 MG in DEXTROSE 5% 100 ML IV SCH (10:00)
[2025-10-11 10:57] LABS: GLOMERULAR FILTRATION RATE,EST 28.0 mL/min (>60); UREA NITROGEN 56.0 mg/dL (7-18)
[2025-10-11] MEDS ORDERED: PHARMACY RENAL DOSE ADJUSTMENT 1 DOSE MISC PO SCH (12:00)
[2025-10-11] MEDS ORDERED: VANCOMYCIN HCL 125 MG CAP PO SCH (13:00)
--- NOTE | 2025-10-11 13:33 | EKG ---
[facility] [address] [facility] [place] [address] Signed Ventricular-paced rhythm Abnormal ECG When compared with ECG of 10-OCT-2025 14:29, Electronic ventricular pacemaker has replaced Wide QRS rhythm Confirmed by Elvin Knott DO ([id number]) on 10/11/2025 1:32:53 PM Electronically Signed By: ELVIN KNOTT DO 10/11/25 1333 PATIENT NAME: SHEATOMAS Electrocardiogram DATE OF : 35 PHYSICIAN: ELVIN KNOTT DO REPORT #: [id number] REPORT IS CONFIDENTIAL AND NOT TO BE RELEASED WITHOUT AUTHORIZATION
[2025-10-11 14:32] LABS: ALT (SGPT) 34.0 U/L (14-59); AST (SGOT) 27.0 U/L (15-37); GLOMERULAR FILTRATION RATE,EST 29.0 mL/min (>60); PROTEIN, TOTAL 6.5 g/dL (6.4-8.2); UREA NITROGEN 56.0 mg/dL (7-18)
[2025-10-11] MEDS ORDERED: IBLOOD GLUCOSE TEST STRIP 1 EA TEST XX PRN (14:45)
[2025-10-11] MEDS ORDERED: DEXTROSE 50% 50 ML SYR IV PRN ×2 (14:45)
[2025-10-11] MEDS ORDERED: GLUCAGON,HUMAN RECOMBINANT 1 MG/ML VIAL SUB-Q PRN (14:45)
[2025-10-11] MEDS ORDERED: DEXTROSE 5% 1,000 ML IV PRN (14:45)
[2025-10-11] MEDS ORDERED: SODIUM ZIRCONIUM CYCLOSILICATE 10 GM PACK PO SCH (15:00)
[2025-10-11] MEDS ORDERED: IBLOOD GLUCOSE TEST STRIP 1 EA TEST VI SCH (17:00)
[2025-10-11 18:19] LABS: GLOMERULAR FILTRATION RATE,EST 28.0 mL/min (>60); UREA NITROGEN 60.0 mg/dL (7-18)
[2025-10-11] MEDS ORDERED: DAPTOmycin 500 MG/10 ML VIAL IV SCH (21:00)
[2025-10-11 22:20] LABS: GLOMERULAR FILTRATION RATE,EST 22.0 mL/min (>60); UREA NITROGEN 63.0 mg/dL (7-18)
[2025-10-12] VITALS (19 sets, daily range): BP systolic 92–126; BP diastolic 50–87
[2025-10-12 02:21] LABS: GLOMERULAR FILTRATION RATE,EST 24.0 mL/min (>60); UREA NITROGEN 60.0 mg/dL (7-18)
[2025-10-12 06:21] LABS: BASOPHILS 0.2 % (0.1-1.2); EOSINOPHILS 2.4 % (0.7-5.8); LYMPHOCYTES 10.6 % (19.3-51.7); MCH 30.4 PG (25.6-32.2); MCHC 32.5 g/dL (32.2-35.5); MCV 93.5 fL (79.4-94.8); MONOCYTES 14.7 % (4.7-12.5); NEUTROPHILS 71.6 % (34.0-71.1); RBC 4.01 M/uL (3.93-5.22)
[2025-10-12 06:43] LABS: GLOMERULAR FILTRATION RATE,EST 26.0 mL/min (>60); UREA NITROGEN 58.0 mg/dL (7-18)
[2025-10-12] MEDS ORDERED: MICONAZOLE NITRATE 1 EA BTL TOP SCH (09:00)
[2025-10-12 19:18] LABS: CORTISOL,SERUM 14.0 ug/dL (())
[2025-10-13] VITALS (9 sets, daily range): BP systolic 94–135; BP diastolic 50–73
[2025-10-13 05:27] LABS: BASOPHILS 0.4 % (0.1-1.2); EOSINOPHILS 5.9 % (0.7-5.8); LYMPHOCYTES 13.3 % (19.3-51.7); MCH 31.0 PG (25.6-32.2); MCHC 32.9 g/dL (32.2-35.5); MCV 94.3 fL (79.4-94.8); MONOCYTES 14.3 % (4.7-12.5); NEUTROPHILS 65.7 % (34.0-71.1); RBC 4.03 M/uL (3.93-5.22)
[2025-10-13 05:38] LABS: GLOMERULAR FILTRATION RATE,EST 33.0 mL/min (>60); UREA NITROGEN 51.0 mg/dL (7-18)
[2025-10-14 01:32] VITALS: BP 84/49
[2025-10-14] MEDS ORDERED: SODIUM CHLORIDE 0.9% 500 ML IV ONE (02:15)
[2025-10-14 03:15] VITALS: BP 86/60
[2025-10-14 06:01] VITALS: BP 104/63
[2025-10-14 09:53] VITALS: BP 90/54
[2025-10-14 12:34] LABS: GLOMERULAR FILTRATION RATE,EST 40.0 mL/min (>60); UREA NITROGEN 45.0 mg/dL (7-18)
[2025-10-17] MEDS ORDERED: PERCOCET 5-3251 EACH PO (14:06)
== END 2025-10-14 14:06 | DRG 683 ==
LOC: ED 09:35 → MS 18:50 → CCU 21:27 → MS 10-13 16:24
PROVIDERS: Emergency Medicine; Hospitalist; ADMIT Student in an Organized Health Care Education/Training Program; ATTEND Student in an Organized Health Care Education/Training Program
DX: N17.9 Acute kidney failure, unspecified (principal); E87.1 Hypo-osmolality and hyponatremia; I13.0 Hypertensive heart and chronic kidney disease with heart failure and stage 1 through stage 4 chronic kidney disease, or unspecified chronic kidney disease; E87.5 Hyperkalemia; N18.30 Chronic kidney disease, stage 3 unspecified; E03.9 Hypothyroidism, unspecified; Z96.653 Presence of artificial knee joint, bilateral; G89.29 Other chronic pain; I50.9 Heart failure, unspecified; R68.0 Hypothermia, not associated with low environmental temperature; D69.6 Thrombocytopenia, unspecified; I48.91 Unspecified atrial fibrillation; Z87.891 Personal history of nicotine dependence; Z98.890 Other specified postprocedural states; Z95.0 Presence of cardiac pacemaker; Z98.41 Cataract extraction status, right eye; Z98.42 Cataract extraction status, left eye; Z90.49 Acquired absence of other specified parts of digestive tract; Z90.89 Acquired absence of other organs; Z90.710 Acquired absence of both cervix and uterus; Z88.8 Allergy status to other drugs, medicaments and biological substances; Z88.0 Allergy status to penicillin; Z88.1 Allergy status to other antibiotic agents; Z88.2 Allergy status to sulfonamides; Z79.899 Other long term (current) drug therapy; Z79.891 Long term (current) use of opiate analgesic; Z79.01 Long term (current) use of anticoagulants; Z79.890 Hormone replacement therapy
CPT/HCPCS: 36415; 51702; 70450; 71045; 74176; 80048; 80053; 80202; 80307; 81003; 82140; 82533; 82550; 82803; 83605; 83735; 83880; 84439; 84443; 84484; 85025; 87040; 87324; 93005; 93010; 96360; 96361; 97110; 97162; 97166; 97530; 99285-25; A4311; A9270; J1815; J2185; J3373; J7030; J7040; J7060; J7121; P9047